=== PATIENT | female | born 1950 | race Caucasian/White ===

== ENCOUNTER 2018-10-28 18:28 | Inpatient (IN) | payer MEDICARE, SELFPAY ==
[2018-10-28 18:32] VITALS: BP 127/68; PULSE 132; RESP 22; TEMP 39.8; O2SAT 91; BMI 51.6
--- NOTE | 2018-10-28 18:47 | DI.RAD.S_ITS ---
PROCEDURE: XR CHEST 1V INDICATIONS: fever, chest pain TECHNIQUE: One view of the chest was acquired. COMPARISON: None. FINDINGS: Surgical changes and devices: None. Lungs and pleura: Air space opacities are present at the left lung base obscuring the left hemidiaphragm. Diffuse interstitial opacities are present throughout the lungs. Mediastinum: Mediastinal contours appear normal. Heart size is normal. Bones and chest wall: No suspicious bony lesions. Overlying soft tissues appear unremarkable. IMPRESSION: 1. Left basilar pulmonary radiopacity suspicious for aspiration/infection. Short interval followup is recommended to ensure resolution of this finding and exclude underlying pulmonary pathology. 2. Diffuse interstitial opacities which may be associated with fluid overload. Dictated by: Ness Lo M.D. on 10/28/2018 at 19:43 Approved by: Ness Lo M.D. on 10/28/2018 at 19:44
[2018-10-28 18:51] VITALS: BP 131/81; PULSE 124; RESP 22; O2SAT 92
[2018-10-28 19:18] LABS: Add Manual Diff / Slide Review NO; Basophils Absolute Auto 100 /uL (0-100); Basophils Percent Auto 0.5 % (0-2); Eosinophils Absolute Auto 400 /uL (0-450); Eosinophils Percent Auto 2.1 % (2-4); Hematocrit 40.9 % (36-46); Hemoglobin 13.6 g/dL (12.0-16.0); Lymphocytes Absolute Auto 200 /uL (1100-4500); Lymphocytes Percent Auto 1.2 % (25-40); Mean Corpuscular HGB Conc 33.2 % (30-36); Mean Corpuscular Hemoglobin 29.4 PG (26-34); Mean Corpuscular Volume 88.8 fL (80-100); Monocytes Absolute Auto 800 /uL (0-900); Monocytes Percent Auto 3.7 % (3-14); Neutrophils Absolute Auto 19100 /uL (1500-7000); Neutrophils Percent Auto 92.5 % (50-75); Platelet Count 257 X10^3/uL (150-400); Red Blood Cell Count 4.61 X10^6/uL (4.0-5.2); Red Cell Distribution Width 14.6 % (11.6-14.8); White Blood Cell Count 20.7 X10^3/uL (4.5-11.0)
[2018-10-28] MEDS: SODIUM CHLORIDE 0.9% 3,538.02 ML 1179.34 ML IV (19:26)
[2018-10-28] MEDS: CEFTRIAXONE 1 GM/50 ML FROZ.PIGGY IV (19:27)
[2018-10-28 19:31] LABS: Alanine Aminotransferase 23 IU/L (9-52); Albumin 3.9 g/dL (3.5-5.0); Albumin Globulin Ratio 1.3 (1.0-2.8); Alkaline Phosphatase 95 U/L (38-126); Aspartate Aminotransferase 24 IU/L (14-36); BUN Creatinine Ratio 22.5 (6-22); Bilirubin Total 1.3 mg/dL (0.2-1.3); Blood Urea Nitrogen 18 mg/dL (7-17); Calcium 9.8 mg/dL (8.4-10.2); Carbon Dioxide 22 mmol/L (22-32); Chloride 101 mmol/L (98-107); Estimated Glomerular Filt Rate > 60.0 mL/min (>60); Globulin 2.9 g/dL (1.7-4.1); Glucose 161 mg/dL (80-110); HEMOLYSIS < 15 (0-50); Lactate (Lactic Acid) 1.7 mmol/L (0.7-2.1); Potassium 3.6 mmol/L (3.4-5.1); Sodium 134 mmol/L (137-145); Total Protein 6.8 g/dL (6.3-8.2)
[2018-10-28 19:46] VITALS: BP 147/68; PULSE 111; RESP 23; O2SAT 95
--- NOTE | 2018-10-28 19:47 | ED.FEVER ---
HPI - Fever General Chief Complaint: Fever Stated Complaint: FEVER THROWING UP Time Seen by Provider: 10/28/18 18:30 Source: patient and family Mode of arrival: ambulatory Limitations: no limitations History of Present Illness HPI Narrative: 68-year-old female former smoker with history of hypertension presents to the emergency department with her in the chief complaint of day and a half of fever, shaking chills as well as nausea and vomiting. The patient complains that she is fatigued and a bit lightheaded but not particularly dizzy. She has had 3 recent encounters for urinary tract infection the most recent being treated with nitrofurantoin. Her symptoms included dysuria, frequency and cloudy urine. MD complaint: fever and malaise Onset (ago): hour(s) Maximum Temperature: 103 F Temperature Source: oral Context: recent antibiotic use Associated symptoms: chills and myalgias Related Data Home Medications Medication Instructions Recorded Confirmed citalopram 10 mg PO DAILY 09/30/18 10/28/18 lisinopril 10 mg PO BEDTIME 09/30/18 10/28/18 loratadine [Claritin] 10 mg PO BEDTIME PRN 09/30/18 10/28/18 trazodone 100 mg PO BEDTIME 09/30/18 10/28/18 triamterene-hydrochlorothiazid 1 cap PO DAILY 09/30/18 10/28/18 Allergies Allergy/AdvReac Type Severity Reaction Status Date / Time TAPE AdvReac Mild RASH with Uncoded 10/28/18 18:38 prolonged wear Review of Systems Constitutional Reports chills, Reports fever(s), Denies lethargy and Reports weakness Eyes Denies change in vision, Denies eye discharge, Denies irritation and Denies loss of vision ENT Ears, Nose, Mouth, and Throat: Denies change in voice, Denies neck pain and Denies sore throat Cardiovascular Denies chest pain, Denies irregular heart rhythm, Denies lightheadedness, Denies palpitations, Denies dyspnea, Denies dyspnea on exertion and Denies orthopnea Respiratory Reports cough, Denies dyspnea, Denies dyspnea on exertion and Denies wheezing Gastrointestinal Gastrointestinal: Denies abdominal pain, Denies change in bowel habits, Denies diarrhea, Reports nausea and Reports vomiting Genitourinary Denies hematuria, Denies flank pain, Denies urinary incontinence and Denies urinary urgency Musculoskeletal Reports muscle cramps and Denies neck pain Integumentary/Breasts Denies pruritus, Denies erythema, Denies rash and Denies wounds Neurologic Denies confusion, Denies loss of vision and Reports weakness Psychiatric Denies anxiety, Denies confusion, Denies depression, Denies homicidal ideation and Denies suicidal ideation Endocrine Denies palpitations Hematologic/Lymphatic Denies easy bruising Allergic/Immunologic Denies wheezing [facility] Medical History Anxiety (Acute) Arthritis (Acute) Edema (Acute) Former smoker (Acute) Gout (Acute) HLD (hyperlipidemia) (Acute) HTN (hypertension) (Acute) Hearing impaired (Acute) Osteoarthritis (Acute) Pre-diabetes (Acute) UTI (urinary tract infection) (Acute ~08/2018) Surgical History History of 2 sections (Acute) History of arthroplasty of left knee (Acute 03/19/14) History of arthroplasty of right knee (Acute 10/23/13) History of colonoscopy (Acute ~10/2014) History of partial hysterectomy (Acute ~1983) Hx of appendectomy (Acute) Hx of tonsillectomy (Acute) Status post bilateral LASIK surgery (Acute) Social History household members: spouse Smoking Status: Former smoker alcohol intake: current Social History household members: spouse Smoking Status: Former smoker alcohol intake: current Exam Narrative Exam Narrative: GENERAL: A 68-year-old female, ill-appearing, moderate distress HEAD: Atraumatic. Normocephalic. No temporal or scalp tenderness. EYES: Pupils equal round and reactive. Extraocular motions intact. No scleral icterus. No injection or drainage. ENT: Nose without bleeding, purulent drainage or septal hematoma. Throat without erythema, tonsillar hypertrophy or exudate. Uvula midline. Airway patent. NECK: Trachea midline. No JVD or lymphadenopathy. Supple, nontender, no meningeal signs. CARDIOVASCULAR: Tachycardic and regular rhythm without murmurs, gallops, or rubs. RESPIRATORY: Clear to auscultation. Breath sounds equal bilaterally. No wheezes, rales, or rhonchi. GASTROINTESTINAL: Abdomen soft, non-tender, nondistended. No hepato-splenomegaly, or palpable masses. No guarding. EXTREMITIES: No clubbing, cyanosis, or edema. No joint tenderness, effusion, or edema noted. BACK: Nontender without deformity or crepitance. No flank tenderness. NEURO: AOx3. SKIN: No rash or erythema. Initial Vital Signs Initial Vital Signs: Vital Signs Temperature 103.6 F H 10/28/18 18:32 Pulse Rate 132 H 10/28/18 18:32 Respiratory Rate 22 10/28/18 18:32 Blood Pressure 127/68 10/28/18 18:32 Pulse Oximetry 91 10/28/18 18:32 Scores qSOFA Altered Mental Status (GCS <15): No Respiratory rate greater than/equal to 22: No Systolic blood pressure less than or equal to 100: No qSOFA Total: 0 0-1 Not High Risk 1-3 High risk Course Orders Ordered: ED Orders 10/28/18 18:47 XR chest 1V Stat 10/28/18 19:00 B Type Natriuretic Peptide Urgent D Dimer Urgent Troponin I Urgent 10/28/18 19:05 Complete Blood Count AUTO DIFF Stat Comprehensive Metabolic Panel Stat Lactate (Lactic Acid) Stat Procalcitonin Stat 10/28/18 19:10 Influenza A and B by PCR Rapid Stat 10/28/18 19:32 Blood Culture Stat 10/28/18 20:40 Urine Microscopic Stat 10/28/18 21:45 Education, smoking cessation ONGOING 10/28/18 22:29 Respiratory Panel (Film Array) Urgent 10/29/18 00:11 Consult to Speech Therapy Evaluate & Treat Acetaminophen (Tylenol) 650 mg PO Q6HR PRN PRN Reason: As Needed for Fever/Mild Pain Last Admin: 10/29/18 00:15 Dose: 650 mg Citalopram Hydrobromide (Celexa) 10 mg PO DAILY [facility] Heparin Sodium (Porcine) (Heparin) 5,000 unit SUBCUT BID [facility] Sodium Chloride (Normal Saline 0.9%) 1,000 mls @ 100 mls/hr IV CONT SRINIVAS Last Admin: 10/28/18 22:50 Dose: 100 mls/hr Ceftriaxone Sodium/Dextrose (Rocephin) 1 gm in 50 mls @ 100 mls/hr IV Q12H [facility] Phenazopyridine HCl (Pyridium) 200 mg PO Q8H [facility] Trazodone HCl (Desyrel) 100 mg PO BEDTIME [facility] Discontinued Medications Sodium Chloride (Normal Saline 0.9%) 3,538.02 mls @ 1,179.34 mls/hr 30 ml/kg infuse over 3 hr (3538.02 ml) IV NOW ONE Stop: 10/28/18 21:49 Last Infusion: 10/28/18 21:50 Dose: 0 mls/hr Admin: 10/28/18 19:26 Dose: 1,179.34 mls/hr Ceftriaxone Sodium/Dextrose (Rocephin) 1 gm in 50 mls @ 100 mls/hr IV NOW ONE Stop: 10/28/18 19:24 Last Infusion: 10/28/18 20:51 Dose: 0 mls/hr Admin: 10/28/18 19:27 Dose: 100 mls/hr Ampicillin Sodium/Sulbactam (Sodium 1.5 gm/ Sodium Chloride) 100 mls @ 100 mls/hr IV Q6H [facility] Vital Signs - 8 hr 10/28/18 18:32 10/28/18 18:51 10/28/18 19:46 Temperature 103.6 F H Pulse Rate 132 H 124 H 111 H Respiratory Rate 22 22 23 Blood Pressure 127/68 Blood Pressure [Left Arm] 131/81 147/68 H Pulse Oximetry 91 92 95 10/28/18 20:50 10/28/18 21:55 10/28/18 23:35 Temperature 101.8 F H 100.8 F H 101.7 F H Pulse Rate 113 H 106 H Respiratory Rate 18 24 Blood Pressure 125/62 126/50 L Blood Pressure [Left Arm] Pulse Oximetry 94 95 MDM - Fever Lab Data Result diagrams: 10/28/18 19:05 10/28/18 19:05 Lab Results 10/28/18 10/28/18 10/28/18 Range/Units 19:00 19:00 19:00 WBC (4.5-11.0) X10^3/uL RBC (4.0-5.2) X10^6/uL Hgb (12.0-16.0) g/dL Hct (36-46) % MCV (80-100) fL MCH (26-34) PG MCHC (30-36) % RDW (11.6-14.8) % Plt Count (150-400) X10^3/uL Neut % (Auto) (50-75) % Lymph % (Auto) (25-40) % [place] % (Auto) (3-14) % Eos % (Auto) (2-4) % Baso % (Auto) (0-2) % Neut # (Auto) (1933-2647) /uL Lymph # (Auto) (2439-1996) /uL [place] # (Auto) (0-900) /uL Eos # (Auto) (0-450) /uL Baso # (Auto) (0-100) /uL D-Dimer 599 H (<230) ng/mL Sodium (137-145) mmol/L Potassium (3.4-5.1) mmol/L Chloride (98-107) mmol/L Carbon Dioxide (22-32) mmol/L BUN (7-17) mg/dL Creatinine (0.52-1.04) mg/dL Estimated GFR (>60) mL/min BUN/Creatinine Ratio (6-22) Glucose (80-110) mg/dL Lactate (0.7-2.1) mmol/L Calcium (8.4-10.2) mg/dL Total Bilirubin (0.2-1.3) mg/dL AST (14-36) IU/L ALT (9-52) IU/L Alkaline Phosphatase (38-126) U/L Troponin I < 0.012 (0.01-0.034) ng/mL B-Natriuretic Peptide < 100 (<100) Total Protein (6.3-8.2) g/dL Albumin (3.5-5.0) g/dL Globulin (1.7-4.1) g/dL Albumin/Globulin Ratio (1.0-2.8) Procalcitonin (<0.5) ng/mL Urine RBC (0-5/HPF) Urine WBC (0-5/HPF) Ur Squamous Epith Cells (0-5/HPF) Amorphous Sediment Urine Bacteria (None) Granular Casts (None) Urine Mucus (Negative) Ur Culture Indicated? Influenza A & B (PCR) (Negative) 10/28/18 10/28/18 10/28/18 Range/Units 19:05 19:05 19:05 WBC 20.7 H (4.5-11.0) X10^3/uL RBC 4.61 (4.0-5.2) X10^6/uL Hgb 13.6 (12.0-16.0) g/dL Hct 40.9 (36-46) % MCV 88.8 (80-100) fL MCH 29.4 (26-34) PG MCHC 33.2 (30-36) % RDW 14.6 (11.6-14.8) % Plt Count 257 (150-400) X10^3/uL Neut % (Auto) 92.5 H (50-75) % Lymph % (Auto) 1.2 L (25-40) % [place] % (Auto) 3.7 (3-14) % Eos % (Auto) 2.1 (2-4) % Baso % (Auto) 0.5 (0-2) % Neut # (Auto) 95202 H (7796-5032) /uL Lymph # (Auto) 200 L (7002-1620) /uL [place] # (Auto) 800 (0-900) /uL Eos # (Auto) 400 (0-450) /uL Baso # (Auto) 100 (0-100) /uL D-Dimer (<230) ng/mL Sodium 134 L (137-145) mmol/L Potassium 3.6 (3.4-5.1) mmol/L Chloride 101 (98-107) mmol/L Carbon Dioxide 22 (22-32) mmol/L BUN 18 H (7-17) mg/dL Creatinine 0.80 (0.52-1.04) mg/dL Estimated GFR > 60.0 (>60) mL/min BUN/Creatinine Ratio 22.5 H (6-22) Glucose 161 H (80-110) mg/dL Lactate (0.7-2.1) mmol/L Calcium 9.8 (8.4-10.2) mg/dL Total Bilirubin 1.3 (0.2-1.3) mg/dL AST 24 (14-36) IU/L ALT 23 (9-52) IU/L Alkaline Phosphatase 95 (38-126) U/L Troponin I (0.01-0.034) ng/mL B-Natriuretic Peptide (<100) Total Protein 6.8 (6.3-8.2) g/dL Albumin 3.9 (3.5-5.0) g/dL Globulin 2.9 (1.7-4.1) g/dL Albumin/Globulin Ratio 1.3 (1.0-2.8) Procalcitonin 0.96 H (<0.5) ng/mL Urine RBC (0-5/HPF) Urine WBC (0-5/HPF) Ur Squamous Epith Cells (0-5/HPF) Amorphous Sediment Urine Bacteria (None) Granular Casts (None) Urine Mucus (Negative) Ur Culture Indicated? Influenza A & B (PCR) (Negative) 10/28/18 10/28/18 10/28/18 Range/Units 19:05 19:10 20:40 WBC (4.5-11.0) X10^3/uL RBC (4.0-5.2) X10^6/uL Hgb (12.0-16.0) g/dL Hct (36-46) % MCV (80-100) fL MCH (26-34) PG MCHC (30-36) % RDW (11.6-14.8) % Plt Count (150-400) X10^3/uL Neut % (Auto) (50-75) % Lymph % (Auto) (25-40) % [place] % (Auto) (3-14) % Eos % (Auto) (2-4) % Baso % (Auto) (0-2) % Neut # (Auto) (1428-8462) /uL Lymph # (Auto) (5378-5341) /uL [place] # (Auto) (0-900) /uL Eos # (Auto) (0-450) /uL Baso # (Auto) (0-100) /uL D-Dimer (<230) ng/mL Sodium (137-145) mmol/L Potassium (3.4-5.1) mmol/L Chloride (98-107) mmol/L Carbon Dioxide (22-32) mmol/L BUN (7-17) mg/dL Creatinine (0.52-1.04) mg/dL Estimated GFR (>60) mL/min BUN/Creatinine Ratio (6-22) Glucose (80-110) mg/dL Lactate 1.7 (0.7-2.1) mmol/L Calcium (8.4-10.2) mg/dL Total Bilirubin (0.2-1.3) mg/dL AST (14-36) IU/L ALT (9-52) IU/L Alkaline Phosphatase (38-126) U/L Troponin I (0.01-0.034) ng/mL B-Natriuretic Peptide (<100) Total Protein (6.3-8.2) g/dL Albumin (3.5-5.0) g/dL Globulin (1.7-4.1) g/dL Albumin/Globulin Ratio (1.0-2.8) Procalcitonin (<0.5) ng/mL Urine RBC None seen (0-5/HPF) Urine WBC 1-5/hpf (0-5/HPF) Ur Squamous Epith Cells 10-30 /hpf H (0-5/HPF) Amorphous Sediment 1+ Urine Bacteria Few (2-10) H (None) Granular Casts 0-1/lpf (None) Urine Mucus 1+ H (Negative) Ur Culture Indicated? Cult not indicated Influenza A & B (PCR) Negative (Negative) Urine Dip Bedside Urine Glucose Negative Bedside Urine Bilirubin - Negative Bedside Urine Ketone +/- 5 Urine Specific [place] 1.020 Bedside Urine Occult Blood - Negative Bedside Urine pH 5.5 Bedside Urine Protein +/- 15 Bedside Urine Urobilinogen +/- 1mg Bedside Urine Nitrite - Negative Bedside Urine Leukocytes - Negative Esterase Discharge Plan Departure Patient Disposition: Admitted As Inpatient Clinical Impression: Sepsis, Pneumonia, Acute UTI Discharge Date/Time: 10/28/18 21:40 Interventions: ED Discharge Assessment Last Done: 10/28/18 21:40 Admit Date/Time: 10/28/18 21:06 Admit Provider: David Buckley
--- NOTE | 2018-10-28 19:50 | ED_ITS ---
HPI - Fever General Chief Complaint: Fever Stated Complaint: FEVER THROWING UP Time Seen by Provider: 10/28/18 18:30 Source: patient and family Mode of arrival: ambulatory Limitations: no limitations History of Present Illness HPI Narrative: 68-year-old female former smoker with history of hypertension presents to the emergency department with her in the chief complaint of day and a half of fever, shaking chills as well as nausea and vomiting. The patient complains that she is fatigued and a bit lightheaded but not particularly dizzy. She has had 3 recent encounters for urinary tract infection the most recent being treated with nitrofurantoin. Her symptoms included dysuria, frequency and cloudy urine. MD complaint: fever and malaise Onset (ago): hour(s) Maximum Temperature: 103 F Temperature Source: oral Context: recent antibiotic use Associated symptoms: chills and myalgias Related Data Home Medications Medication Instructions Recorded Confirmed citalopram 10 mg PO DAILY 09/30/18 10/28/18 lisinopril 10 mg PO BEDTIME 09/30/18 10/28/18 loratadine [Claritin] 10 mg PO BEDTIME PRN 09/30/18 10/28/18 trazodone 100 mg PO BEDTIME 09/30/18 10/28/18 triamterene-hydrochlorothiazid 1 cap PO DAILY 09/30/18 10/28/18 Allergies Allergy/AdvReac Type Severity Reaction Status Date / Time TAPE AdvReac Mild RASH with Uncoded 10/28/18 18:38 prolonged wear Review of Systems Constitutional Reports chills, Reports fever(s), Denies lethargy and Reports weakness Eyes Denies change in vision, Denies eye discharge, Denies irritation and Denies loss of vision ENT Ears, Nose, Mouth, and Throat: Denies change in voice, Denies neck pain and Denies sore throat Cardiovascular Denies chest pain, Denies irregular heart rhythm, Denies lightheadedness, Denies palpitations, Denies dyspnea, Denies dyspnea on exertion and Denies orthopnea Respiratory Reports cough, Denies dyspnea, Denies dyspnea on exertion and Denies wheezing Gastrointestinal Gastrointestinal: Denies abdominal pain, Denies change in bowel habits, Denies diarrhea, Reports nausea and Reports vomiting Genitourinary Denies hematuria, Denies flank pain, Denies urinary incontinence and Denies urinary urgency Musculoskeletal Reports muscle cramps and Denies neck pain Integumentary/Breasts Denies pruritus, Denies erythema, Denies rash and Denies wounds Neurologic Denies confusion, Denies loss of vision and Reports weakness Psychiatric Denies anxiety, Denies confusion, Denies depression, Denies homicidal ideation and Denies suicidal ideation Endocrine Denies palpitations Hematologic/Lymphatic Denies easy bruising Allergic/Immunologic Denies wheezing [facility] Medical History Anxiety (Acute) Arthritis (Acute) Edema (Acute) Former smoker (Acute) Gout (Acute) HLD (hyperlipidemia) (Acute) HTN (hypertension) (Acute) Hearing impaired (Acute) Osteoarthritis (Acute) Pre-diabetes (Acute) UTI (urinary tract infection) (Acute ~08/2018) Surgical History History of 2 sections (Acute) History of arthroplasty of left knee (Acute 03/19/14) History of arthroplasty of right knee (Acute 10/23/13) History of colonoscopy (Acute ~10/2014) History of partial hysterectomy (Acute ~1983) Hx of appendectomy (Acute) Hx of tonsillectomy (Acute) Status post bilateral LASIK surgery (Acute) Social History household members: spouse Smoking Status: Former smoker alcohol intake: current Social History household members: spouse Smoking Status: Former smoker alcohol intake: current Exam Narrative Exam Narrative: GENERAL: A 68-year-old female, ill-appearing, moderate distress HEAD: Atraumatic. Normocephalic. No temporal or scalp tenderness. EYES: Pupils equal round and reactive. Extraocular motions intact. No scleral icterus. No injection or drainage. ENT: Nose without bleeding, purulent drainage or septal hematoma. Throat without erythema, tonsillar hypertrophy or exudate. Uvula midline. Airway patent. NECK: Trachea midline. No JVD or lymphadenopathy. Supple, nontender, no meningeal signs. CARDIOVASCULAR: Tachycardic and regular rhythm without murmurs, gallops, or rubs. RESPIRATORY: Clear to auscultation. Breath sounds equal bilaterally. No wheezes, rales, or rhonchi. GASTROINTESTINAL: Abdomen soft, non-tender, nondistended. No hepato- splenomegaly, or palpable masses. No guarding. EXTREMITIES: No clubbing, cyanosis, or edema. No joint tenderness, effusion, or edema noted. BACK: Nontender without deformity or crepitance. No flank tenderness. NEURO: AOx3. SKIN: No rash or erythema. Initial Vital Signs Initial Vital Signs: Vital Signs Temperature 103.6 F H 10/28/18 18:32 Pulse Rate 132 H 10/28/18 18:32 Respiratory Rate 22 10/28/18 18:32 Blood Pressure 127/68 10/28/18 18:32 Pulse Oximetry 91 10/28/18 18:32 Scores qSOFA Altered Mental Status (GCS <15): No Respiratory rate greater than/equal to 22: No Systolic blood pressure less than or equal to 100: No qSOFA Total: 0 0-1 Not High Risk 1-3 High risk Course Orders Ordered: ED Orders 10/28/18 18:47 XR chest 1V Stat 10/28/18 19:00 B Type Natriuretic Peptide Urgent D Dimer Urgent Troponin I Urgent 10/28/18 19:05 Complete Blood Count AUTO DIFF Stat Comprehensive Metabolic Panel Stat Lactate (Lactic Acid) Stat Procalcitonin Stat 10/28/18 19:10 Influenza A and B by PCR Rapid Stat 10/28/18 19:32 Blood Culture Stat 10/28/18 20:40 Urine Microscopic Stat 10/28/18 21:45 Education, smoking cessation ONGOING 10/28/18 22:29 Respiratory Panel (Film Array) Urgent 10/29/18 00:11 Consult to Speech Therapy Evaluate & Treat Acetaminophen (Tylenol) 650 mg PO Q6HR PRN PRN Reason: As Needed for Fever/Mild Pain Last Admin: 10/29/18 00:15 Dose: 650 mg Citalopram Hydrobromide (Celexa) 10 mg PO DAILY [facility] Heparin Sodium (Porcine) (Heparin) 5,000 unit SUBCUT BID [facility] Sodium Chloride (Normal Saline 0.9%) 1,000 mls @ 100 mls/hr IV CONT SRINIVAS Last Admin: 10/28/18 22:50 Dose: 100 mls/hr Ceftriaxone Sodium/Dextrose (Rocephin) 1 gm in 50 mls @ 100 mls/hr IV Q12H [facility] Phenazopyridine HCl (Pyridium) 200 mg PO Q8H [facility] Trazodone HCl (Desyrel) 100 mg PO BEDTIME [facility] Discontinued Medications Sodium Chloride (Normal Saline 0.9%) 3,538.02 mls @ 1,179.34 mls/hr 30 ml/kg infuse over 3 hr (3538.02 ml) IV NOW ONE Stop: 10/28/18 21:49 Last Infusion: 10/28/18 21:50 Dose: 0 mls/hr Admin: 10/28/18 19:26 Dose: 1,179.34 mls/hr Ceftriaxone Sodium/Dextrose (Rocephin) 1 gm in 50 mls @ 100 mls/hr IV NOW ONE Stop: 10/28/18 19:24 Last Infusion: 10/28/18 20:51 Dose: 0 mls/hr Admin: 10/28/18 19:27 Dose: 100 mls/hr Ampicillin Sodium/Sulbactam (Sodium 1.5 gm/ Sodium Chloride) 100 mls @ 100 mls/hr IV Q6H [facility] Vital Signs - 8 hr 10/28/18 18:32 10/28/18 18:51 10/28/18 19:46 Temperature 103.6 F H Pulse Rate 132 H 124 H 111 H Respiratory Rate 22 22 23 Blood Pressure 127/68 Blood Pressure [Left Arm] 131/81 147/68 H Pulse Oximetry 91 92 95 10/28/18 20:50 10/28/18 21:55 10/28/18 23:35 Temperature 101.8 F H 100.8 F H 101.7 F H Pulse Rate 113 H 106 H Respiratory Rate 18 24 Blood Pressure 125/62 126/50 L Blood Pressure [Left Arm] Pulse Oximetry 94 95 MDM - Fever Lab Data Result diagrams: 10/28/18 19:05 10/28/18 19:05 Lab Results 10/28/18 10/28/18 10/28/18 Range/Units 19:00 19:00 19:00 WBC (4.5-11.0) X10^3/uL RBC (4.0-5.2) X10^6/uL Hgb (12.0-16.0) g/dL Hct (36-46) % MCV (80-100) fL MCH (26-34) PG MCHC (30-36) % RDW (11.6-14.8) % Plt Count (150-400) X10^3/uL Neut % (Auto) (50-75) % Lymph % (Auto) (25-40) % [place] % (Auto) (3-14) % Eos % (Auto) (2-4) % Baso % (Auto) (0-2) % Neut # (Auto) (1431-8161) /uL Lymph # (Auto) (1382-5076) /uL [place] # (Auto) (0-900) /uL Eos # (Auto) (0-450) /uL Baso # (Auto) (0-100) /uL D-Dimer 599 H (<230) ng/mL Sodium (137-145) mmol/L Potassium (3.4-5.1) mmol/L Chloride (98-107) mmol/L Carbon Dioxide (22-32) mmol/L BUN (7-17) mg/dL Creatinine (0.52-1.04) mg/dL Estimated GFR (>60) mL/min BUN/Creatinine Ratio (6-22) Glucose (80-110) mg/dL Lactate (0.7-2.1) mmol/L Calcium (8.4-10.2) mg/dL Total Bilirubin (0.2-1.3) mg/dL AST (14-36) IU/L ALT (9-52) IU/L Alkaline Phosphatase (38-126) U/L Troponin I < 0.012 (0.01-0.034) ng/mL B-Natriuretic Peptide < 100 (<100) Total Protein (6.3-8.2) g/dL Albumin (3.5-5.0) g/dL Globulin (1.7-4.1) g/dL Albumin/Globulin Ratio (1.0-2.8) Procalcitonin (<0.5) ng/mL Urine RBC (0-5/HPF) Urine WBC (0-5/HPF) Ur Squamous Epith Cells (0-5/HPF) Amorphous Sediment Urine Bacteria (None) Granular Casts (None) Urine Mucus (Negative) Ur Culture Indicated? Influenza A & B (PCR) (Negative) 10/28/18 10/28/18 10/28/18 Range/Units 19:05 19:05 19:05 WBC 20.7 H (4.5-11.0) X10^3/uL RBC 4.61 (4.0-5.2) X10^6/uL Hgb 13.6 (12.0-16.0) g/dL Hct 40.9 (36-46) % MCV 88.8 (80-100) fL MCH 29.4 (26-34) PG MCHC 33.2 (30-36) % RDW 14.6 (11.6-14.8) % Plt Count 257 (150-400) X10^3/uL Neut % (Auto) 92.5 H (50-75) % Lymph % (Auto) 1.2 L (25-40) % [place] % (Auto) 3.7 (3-14) % Eos % (Auto) 2.1 (2-4) % Baso % (Auto) 0.5 (0-2) % Neut # (Auto) 42738 H (6915-3557) /uL Lymph # (Auto) 200 L (8532-5204) /uL [place] # (Auto) 800 (0-900) /uL Eos # (Auto) 400 (0-450) /uL Baso # (Auto) 100 (0-100) /uL D-Dimer (<230) ng/mL Sodium 134 L (137-145) mmol/L Potassium 3.6 (3.4-5.1) mmol/L Chloride 101 (98-107) mmol/L Carbon Dioxide 22 (22-32) mmol/L BUN 18 H (7-17) mg/dL Creatinine 0.80 (0.52-1.04) mg/dL Estimated GFR > 60.0 (>60) mL/min BUN/Creatinine Ratio 22.5 H (6-22) Glucose 161 H (80-110) mg/dL Lactate (0.7-2.1) mmol/L Calcium 9.8 (8.4-10.2) mg/dL Total Bilirubin 1.3 (0.2-1.3) mg/dL AST 24 (14-36) IU/L ALT 23 (9-52) IU/L Alkaline Phosphatase 95 (38-126) U/L Troponin I (0.01-0.034) ng/mL B-Natriuretic Peptide (<100) Total Protein 6.8 (6.3-8.2) g/dL Albumin 3.9 (3.5-5.0) g/dL Globulin 2.9 (1.7-4.1) g/dL Albumin/Globulin Ratio 1.3 (1.0-2.8) Procalcitonin 0.96 H (<0.5) ng/mL Urine RBC (0-5/HPF) Urine WBC (0-5/HPF) Ur Squamous Epith Cells (0-5/HPF) Amorphous Sediment Urine Bacteria (None) Granular Casts (None) Urine Mucus (Negative) Ur Culture Indicated? Influenza A & B (PCR) (Negative) 10/28/18 10/28/18 10/28/18 Range/Units 19:05 19:10 20:40 WBC (4.5-11.0) X10^3/uL RBC (4.0-5.2) X10^6/uL Hgb (12.0-16.0) g/dL Hct (36-46) % MCV (80-100) fL MCH (26-34) PG MCHC (30-36) % RDW (11.6-14.8) % Plt Count (150-400) X10^3/uL Neut % (Auto) (50-75) % Lymph % (Auto) (25-40) % [place] % (Auto) (3-14) % Eos % (Auto) (2-4) % Baso % (Auto) (0-2) % Neut # (Auto) (9295-9121) /uL Lymph # (Auto) (6175-2145) /uL [place] # (Auto) (0-900) /uL Eos # (Auto) (0-450) /uL Baso # (Auto) (0-100) /uL D-Dimer (<230) ng/mL Sodium (137-145) mmol/L Potassium (3.4-5.1) mmol/L Chloride (98-107) mmol/L Carbon Dioxide (22-32) mmol/L BUN (7-17) mg/dL Creatinine (0.52-1.04) mg/dL Estimated GFR (>60) mL/min BUN/Creatinine Ratio (6-22) Glucose (80-110) mg/dL Lactate 1.7 (0.7-2.1) mmol/L Calcium (8.4-10.2) mg/dL Total Bilirubin (0.2-1.3) mg/dL AST (14-36) IU/L ALT (9-52) IU/L Alkaline Phosphatase (38-126) U/L Troponin I (0.01-0.034) ng/mL B-Natriuretic Peptide (<100) Total Protein (6.3-8.2) g/dL Albumin (3.5-5.0) g/dL Globulin (1.7-4.1) g/dL Albumin/Globulin Ratio (1.0-2.8) Procalcitonin (<0.5) ng/mL Urine RBC None seen (0-5/HPF) Urine WBC 1-5/hpf (0-5/HPF) Ur Squamous Epith Cells 10-30 /hpf H (0-5/HPF) Amorphous Sediment 1+ Urine Bacteria Few (2-10) H (None) Granular Casts 0-1/lpf (None) Urine Mucus 1+ H (Negative) Ur Culture Indicated? Cult not indicated Influenza A & B (PCR) Negative (Negative) Urine Dip Bedside Urine Glucose Negative Bedside Urine Bilirubin - Negative Bedside Urine Ketone +/- 5 Urine Specific [place] 1.020 Bedside Urine Occult Blood - Negative Bedside Urine pH 5.5 Bedside Urine Protein +/- 15 Bedside Urine Urobilinogen +/- 1mg Bedside Urine Nitrite - Negative Bedside Urine Leukocytes - Negative Esterase Discharge Plan Departure Patient Disposition: Admitted As Inpatient Clinical Impression: Sepsis, Pneumonia, Acute UTI Discharge Date/Time: 10/28/18 21:40 Interventions: ED Discharge Assessment Last Done: 10/28/18 21:40 Admit Date/Time: 10/28/18 21:06 Admit Provider: David Buckley
[2018-10-28 19:51] LABS: Procalcitonin 0.96 ng/mL (<0.5)
[2018-10-28 20:50] VITALS: TEMP 38.8
[2018-10-28 21:08] LABS: RBC Urine None Seen (0-5/HPF)
[2018-10-28 21:20] LABS: Amorphous Sediment Urine 1+; Bacteria Urine Few (2-10); Culture Indicated Urine Cult Not Indicated; Granular Casts Urine 0-1/LPF; Mucus Urine 1+ (Negative); Squamous Epithelial Cell Urine 10-30 /HPF (0-5/HPF); WBC Urine 1-5/HPF (0-5/HPF)
[2018-10-28 21:44] LABS: Influenza A and B by PCR Rapid Negative (Negative)
[2018-10-28 21:55] VITALS: BP 125/62; PULSE 113; RESP 18; TEMP 38.2; O2SAT 94
[2018-10-28 21:58] VITALS: BMI 51.6
--- NOTE | 2018-10-28 22:01 | PM.HP.1 ---
History of Present Illness Date Patient Seen: 10/28/18 Time Patient Seen: 22:01 Chief complaint: FEVER THROWING UP Narrative: The patient is a 68-year-old female who presented to the ED on 10/28/2018 out of concern for persistent fever and rigors. Symptoms started early in the morning on day of ED presentation. A day prior, patient was experiencing dysuria and foul-smelling urine, consequently she was started on her 3rd oral antibiotic course. Associated symptoms include headache, malaise, non-productive cough, wheezing, exertional dyspnea (recent), chest discomfort (recent), dizziness (w/ position change), nausea and vomiting (x4 episodes). Denies suprapubic tenderness, diarrhea, pleurisy, and syncopal events. Reports new onset of mid-sternal chest discomfort without radiation to the extremities, neck or jaw. She has baseline paresthesia of BUE. Reports an episode of self resolved viral illness one month ago. Episode was characterized by generalized weakness, generalized body rash, and temperature of 103? point. Denies sx of overt rhinitis or sinusitis. She is not O2 dependent at baseline. No prior h/o of PE or DVT. Denies unilateral edema and LE pain at rest or with ambulation. Patient has a pending C3-T1 anterior cervical diskectomy and fusion scheduled for 11/08/2018. PMH: HTN, HLD, impaired fasting glucose, obesity, chronic neck and left shoulder pain, osteoarthritis, PUD, anxiety, former smoker (30 PYH, quit 1998), chronic NSAID use, allergic rhinitis, cervical stenosis of spine, cervical cord compression with myelopathy, and morbid obesity (BMI 51.6). PSH: Knee replacement surgery (2013), NM stress test (07/2018), left TKA (03/19/2014), colonoscopy (negative, 10/2018), and hysterectomy (ovaries present, 1984) ED presentation, work-up VS: T 103.6 BP 127/68 mmHg HR 132 RR 22 SpO2 91% on room air. GCS 15 WBC 20.7 HGB 13.6 HCT 40.9 PLT 257 Lactate 1.7 PCT 0.96 NA 134 K 3.6 CL 101 CA 9.8 ALB 3.9 GLU 161 CO2 22 BUN 18 CR 0.8 BUN:CR 22.5 T.BILI 1.3 AST 24 ALT 23 ALK PHOS 95 Influenza, negative. UA revealed WBC 1-5 HPF, squamous epithelial cells 10-30 HPF, amorphous sediment 1+, bacteria 2-10 HPF, mucus 1+ CXR revealed a left basilar pulmonary radiopacities suspicious for aspiration / infection; heart size is normal; mediastinal contours appear normal. In the ED received a total of 2 L of NS for fluid resuscitation. Tylenol 650 mg x1 for headache. Blood cultures x2 collected, pending. Patient History Medical History Anxiety (Acute) Arthritis (Acute) Edema (Acute) Former smoker (Acute) Gout (Acute) HLD (hyperlipidemia) (Acute) HTN (hypertension) (Acute) Hearing impaired (Acute) Osteoarthritis (Acute) Pre-diabetes (Acute) UTI (urinary tract infection) (Acute ~08/2018) Surgical History History of 2 sections (Acute) History of arthroplasty of left knee (Acute 03/19/14) History of arthroplasty of right knee (Acute 10/23/13) History of colonoscopy (Acute ~10/2014) History of partial hysterectomy (Acute ~1983) Hx of appendectomy (Acute) Hx of tonsillectomy (Acute) Status post bilateral LASIK surgery (Acute) Social History household members: spouse Smoking Status: Former smoker alcohol intake: current Family & Social History Social History: household members spouse Safety & Behavioral: Feels Safe in Current Yes Environment Been Physically Hurt or No Threatened By a Person Tobacco & Substance use: Tobacco type cigarettes Smoking Status Former smoker alcohol intake current alcohol intake frequency holiday/special occasion Substance Use Type does not use Meds Home Medications Medication Instructions Recorded Confirmed Type citalopram 10 mg PO DAILY 09/30/18 10/28/18 History lisinopril 10 mg PO BEDTIME 09/30/18 10/28/18 History loratadine [Claritin] 10 mg PO BEDTIME PRN 09/30/18 10/28/18 History trazodone 100 mg PO BEDTIME 09/30/18 10/28/18 History triamterene-hydrochlorothiazid 1 cap PO DAILY 04/05/19 05/03/19 History Allergies Allergy/AdvReac Type Severity Reaction Status Date / Time TAPE AdvReac Mild RASH with Uncoded 10/28/18 18:38 prolonged wear Review of Systems Review of Systems All systems reviewed & are unremarkable except as noted in HPI and below Exam Vital Signs (past 8 hours): - 10/28/18 18:32 10/28/18 18:51 10/28/18 19:46 Temperature 103.6 F H Pulse Rate 132 H 124 H 111 H Respiratory Rate 22 22 23 Blood Pressure 127/68 Blood Pressure [Left Arm] 131/81 147/68 H Pulse Oximetry 91 92 95 10/28/18 20:50 Temperature 101.8 F H Pulse Rate Respiratory Rate Blood Pressure Blood Pressure [Left Arm] Pulse Oximetry Oxygen Delivery Method Room Air Oxygen Flow Rate 2 Narrative Exam Narrative: Constitutional: NAD at rest, corpulent body habitus with BMI of 51.6 Neurologic: AOx3, no focal neurological deficits Head: NC, AT Eyes: PERRL, EOMI, Ears: external ears normal, no otorrhea, very hard of hearing Nose: external nose normal, no rhinorrhea or epistaxis Throat: Dry mucous membranes, oropharynx w/o exudate Neck: no masses, lymphadenopathy, or JVD Chest / Respiratory: equal chest rise, unlabored respiratory effort, mild tachypnea at rest 22-24 breaths Left lower lobe crackles. Patient significantly short of breath sitting up. On supplemental oxygen. Heart / CV: S1S2, no murmur Abdomen / GI: round, NT, ND, + BS, no organomegaly : no suprapubic tenderness, no CVA Peripheral / Vascular: warm to touch, DP and PT pulses palpable, no edema Musc: full ROM of upper and lower extremities, adequate muscle tone and bulk Skin: no eccymosis or suspicious lesions / ulcers Objective Labs Result Diagrams: 10/28/18 19:05 10/28/18 19:05 Labs: Laboratory Results - last 24 hr 10/28/18 10/28/18 10/28/18 19:05 19:05 19:05 WBC 20.7 H RBC 4.61 Hgb 13.6 Hct 40.9 MCV 88.8 MCH 29.4 MCHC 33.2 RDW 14.6 Plt Count 257 Neut % (Auto) 92.5 H Lymph % (Auto) 1.2 L [place] % (Auto) 3.7 Eos % (Auto) 2.1 Baso % (Auto) 0.5 Neut # (Auto) 06359 H Lymph # (Auto) 200 L [place] # (Auto) 800 Eos # (Auto) 400 Baso # (Auto) 100 Sodium 134 L Potassium 3.6 Chloride 101 Carbon Dioxide 22 BUN 18 H Creatinine 0.80 Estimated GFR > 60.0 BUN/Creatinine Ratio 22.5 H Glucose 161 H Lactate Calcium 9.8 Total Bilirubin 1.3 AST 24 ALT 23 Alkaline Phosphatase 95 Total Protein 6.8 Albumin 3.9 Globulin 2.9 Albumin/Globulin Ratio 1.3 Procalcitonin 0.96 H Urine RBC Urine WBC Ur Squamous Epith Cells Amorphous Sediment Urine Bacteria Granular Casts Urine Mucus Ur Culture Indicated? Influenza A & B (PCR) 10/28/18 10/28/18 10/28/18 19:05 19:10 20:40 WBC RBC Hgb Hct MCV MCH MCHC RDW Plt Count Neut % (Auto) Lymph % (Auto) [place] % (Auto) Eos % (Auto) Baso % (Auto) Neut # (Auto) Lymph # (Auto) [place] # (Auto) Eos # (Auto) Baso # (Auto) Sodium Potassium Chloride Carbon Dioxide BUN Creatinine Estimated GFR BUN/Creatinine Ratio Glucose Lactate 1.7 Calcium Total Bilirubin AST ALT Alkaline Phosphatase Total Protein Albumin Globulin Albumin/Globulin Ratio Procalcitonin Urine RBC None seen Urine WBC 1-5/hpf Ur Squamous Epith Cells 10-30 /hpf H Amorphous Sediment 1+ Urine Bacteria Few (2-10) H Granular Casts 0-1/lpf Urine Mucus 1+ H Ur Culture Indicated? Cult not indicated Influenza A & B (PCR) Negative Assessment & Plan Assessment & Plan narrative: Patient is being admitted for sepsis. Sepsis, acute, present on admission, active Temp 103.6F HR 132 RR 22, leukocytosis (WBC 20.7) Lactate WNL PCT 0.96, CXR suggestive of aspiration pneumonia. Acute respiratory failure w/ hypoxia requiring O2 (acute organ involvement) BP at baseline, w/o hemodynamic decompensation Source of sepsis is not entirely clear possibly d/t recurrent UTIs or aspiration PNA, viral pathology has also not been ruled out - Blood Cx x2 collected in ED, results pending - UA is not indicative of underlying infectious process - IV fluid resuscitation at 30 ml/kg, completed initial bolus in ED, transition to maintenance therapy at 100 mL - viral respiratory panel results reviewed: negative Aspiration pneumonia, acute, present on admission, active - continue Rocephin 1 mg every 12 hours - swallow eval in am, patient herself does not complain of dysphagia - Empiric therapy w/ ceftriaxone 1 g q.12 hours - Repeat PCT and CXR on 10/30/18 Acute respiratory failure with hypoxia and O2 dependence, acute, present on admission, - influenza negative, will add viral respiratory panel - check Trop, D-dimer, and BNP Results reviewed troponin and BNP WNL. D-Dimer 599 ng/mL - elevated, will get a CTA chest to r/o PE - consult respiratory care to provide supplemental oxygen, DuoNeb treatments, and supportive pulmonary care History of recurrent UTIs, subacute, present on admission Recently treated with 2 full courses of oral antibiotic therapy. One of the medications was nitrofurantoin. Patient had symptoms of dysuria and cloudy/concentrated urine, consequently she was placed on another course of oral antibiotics. UA completed in the ED does not support findings of active UTI or pyelonephritis. No prior known multi-drug resistance. [facility] been [facility]. Hypovolemia, acute, present on admission, active Suspected to be in the setting of acute illness and hypermetabolic state - Received 30 ml/kg IVF resuscitation in the ED, now transitioned to oral therapy - Correct underlying pathology - BMP in AM Non AG - 11 mEq/L acidosis, acute, present on admission, active / monitor Essential hypertension, chronic condition, present on admission, active PT regimen consists of lisinopril 10 mg q.h.s. and triamterene-HCTZ - BP within normal limits. Continue trending - Hold [employer] anti-hypertensives in the setting of sepsis and risk for hemodynamic decompensation, re-evaluate in the morning Depression, chronic condition, stable, active - resume [employer] trazodone and citalopram Code status discussed with patient. Wishes to be DNR. She has a formal health directive. is the designated shuttle truck driver. Home medications reviewed and reconciled accordingly VT prophylaxis with SCDs and SQ Heparin.
--- NOTE | 2018-10-28 22:32 | PC.ADMIT ---
[address] Admission Note: The patient,Luanne Carrasco,68 y/o, was given written information regarding hospital policies, unit procedures and contact persons. Patient's smoking status: Former smoker. Vital Signs - 8 hr 10/28/18 18:32 10/28/18 18:51 10/28/18 19:46 Temperature 103.6 F H Pulse Rate 132 H 124 H 111 H Respiratory Rate 22 22 23 Blood Pressure 127/68 Blood Pressure [Left Arm] 131/81 147/68 H Pulse Oximetry 91 92 95 10/28/18 20:50 10/28/18 21:55 Temperature 101.8 F H 100.8 F H Pulse Rate 113 H Respiratory Rate 18 Blood Pressure 125/62 Blood Pressure [Left Arm] Pulse Oximetry 94 Patient up to the floor from ED via stretcher. Pt was able to get off of the stretcher and ambulate to the AC bed. Pt A&O, calm and cooperative.
[2018-10-28 22:42] LABS: D Dimer 599 ng/mL (<230)
[2018-10-28] MEDS: SODIUM CHLORIDE 0.9% 1,000 ML 100 ML IV (22:50)
[2018-10-28 22:56] LABS: Troponin I < 0.012 ng/mL (0.01-0.034)
[2018-10-28 22:58] LABS: B Type Natriuretic Peptide < 100 (<100)
[2018-10-28 23:35] VITALS: BP 126/50; PULSE 106; RESP 24; TEMP 38.7; O2SAT 95
[2018-10-29] VITALS (11 sets, daily range): BP systolic 105–123; BP diastolic 42–78; PULSE 84–97; RESP 18–24; TEMP 36.3–37.4; O2SAT 85–95
--- NOTE | 2018-10-29 | DI.ECHO.S_ITS ---
[facility]---------+ [facility] +---------+ : : [address] : : : [place], [place] : : : : [id number] : : : : Phone: [phone] Echocardiogram Report + + :Name: ADITI GALDAMEZ Study Date: 10/30/2018 Height: 60 in : :[facility] Exam Location: IS Weight: 271 lb : : Gender: Female BSA: 2.1 m2 : :: 1950 Age: 68 yrs BP: 111/53 mmHg: :Reason For Study: IVERSON/ Heart failure : :Ordering Physician: Nancy : :Hospitalist Performed By: Maite Page : :Referring: JED CASTRO : + + Interpretation Summary 1) Upper normal left ventricular size with normal thickness, wall motion, and systolic function (EF 55-60)%. 2) Mildly enlarged right ventricle with normal function. 3) Both atria are moderately dilated. 4) No significant valvular abnormalities. 5) The right ventricular systolic pressure is estimated to be at least 33 mmHg based on an estimated right atrial pressure of 3 mm Hg. 6) No prior echo available for comparison. Procedure: A two-dimensional transthoracic echocardiogram with color flow and Doppler was performed. The study quality was technically difficult. There is no prior echocardiogram noted for this patient. A contrast injection of Definity was performed to improve assessment of LV function. The patient was in normal sinus rhythm during the exam. Left Ventricle: The left ventricle is mildly dilated. Left ventricular wall thickness is normal. The ejection fraction is estimated to be 55-60%. Left ventricular systolic function is normal. There are no focal wall motion abnormalities. Right Ventricle: The right ventricle is mildly dilated. The right ventricular systolic function is normal. Atria: Both atria are moderately dilated. There is no Doppler evidence for an interatrial shunt. Mitral Valve: The mitral valve is normal in structure and function. There is mild mitral annular calcification. There is trace mitral regurgitation. Aortic Valve: The aortic valve is trileaflet. The aortic valve opens well. There is no aortic valve stenosis. No aortic regurgitation is present. Tricuspid Valve: The tricuspid valve is normal in structure and function. There is trace tricuspid regurgitation. The right ventricular systolic pressure is estimated to be at least 33 mmHg based on an estimated right atrial pressure of 3 mm Hg. Pulmonic Valve: The pulmonic valve is not well visualized. There is a trace or physiologic amount of pulmonic regurgitation. Great Vessels: The aortic root is normal size. The ascending aorta is mildly enlarged. The pulmonary artery is not well visualized, but is probably normal size. The IVC is of normal diameter and collapses greater than 50% with a sniff. This suggests a low right atrial pressure of 3 mm Hg. Pericardium/ Pleura There is no pericardial effusion. There is no pleural effusion. MMode/2D Measurements & Calculations LVIDd: 5.3 cm LVOT diam: 1.9 cm LVIDs: 3.1 cm Ao root diam: 3.3 cm FS: 41.5 % asc Aorta Diam: 3.5 cm EPSS: 0.30 cm IVSd: 0.70 cm LVPWd: 0.85 cm LV ashley. diameter/BSA (cm/m^2): 2.5 LV sys. diameter/BSA (cm/m^2): 1.5 LA A2 area: 25.0 cm2 RA long axis: 5.2 cm LA A4 area: 25.7 cm2 RA area: 23.8 cm2 LA length (vol): 6.2 cm RA vol: 93.0 ml LA vol: 88.0 ml RA : 43.8 ml/m2 LA vol index: 41.4 ml/m2 IVC diam: 2.1 cm RVD1 (basal): 4.4 cm TAPSE: 2.0 cm Doppler Measurements & Calculations Ao V2 max: 154.8 cm/sec LVOT Max Bryce: 106.4 cm/sec Ao V2 mean: 110.5 cm/sec LV V1 max P.5 mmHg Ao max P.6 mmHg LV V1 VTI: 23.9 cm Ao mean P.2 mmHg MAIRA(I,D): 2.2 cm2 Ao V2 VTI: 30.6 cm MAIRA(V,D): 1.9 cm2 sev ratio: 0.78 MAIRA indexed to BSA (cm^2/m^2): 1.0 MV E max bryce: 120.6 cm/sec TR max bryce: 272.6 cm/sec MV A max bryce: 84.7 cm/sec TR max P.7 mmHg MV E/A: 1.4 PA V2 max: 93.2 cm/sec Med Peak E' Bryce: 8.9 cm/sec PA V2 mean: 65.1 cm/sec E/E' med: 13.6 PA mean P.9 mmHg Lat Peak E' Bryce: 12.9 cm/sec PA Accel Time: 0.07 sec E/E' lat: 9.3 E/e' average: 11.5 MV dec time: 0.23 sec MV P1/2t: 68.7 msec MV /2t max bryce: 122.0 cm/sec SV(LVOT): 66.4 ml MVA(2t): 3.2 cm2 Reading Physician:03:26 PM
[2018-10-29] MEDS: ACETAMINOPHEN 325 MG TABLET 650 MG PO ×2 (00:15→16:10)
[2018-10-29] MEDS: PHENAZOPYRIDINE 100 MG TABLET 200 MG PO ×3 (01:41→16:10)
[2018-10-29 02:19] LABS: Adenovirus Not Detected (Not Detect); Bordetella pertussis Not Detected (Not Detect); Chlamydophila pneumoniae Not Detected (Not Detect); Coronavirus 229E Not Detected (Not Detect); Coronavirus HKU1 Not Detected (Not Detect); Coronavirus NL 63 Not Detected (Not Detect); Coronavirus OC43 Not Detected (Not Detect); Human Metapneumovirus Not Detected (Not Detect); Human Rhinovirus/Enterovirus Not Detected (Not Detect); Influenza A Not Detected (Not Detect); Influenza B Not Detected (Not Detect); Mycoplasma pneumoniae Not Detected (Not Detect); Parainfluenza Virus 1 Not Detected (Not Detect); Parainfluenza Virus 2 Not Detected (Not Detect); Parainfluenza Virus 3 Not Detected (Not Detect); Parainfluenza Virus 4 Not Detected (Not Detect); Respiratory Syncytial Virus Not Detected (Not Detect)
--- NOTE | 2018-10-29 03:33 | PC.NURSE ---
Addendum entered by Ekaterina Harrison R.N. 10/29/18 07:40: Per provider place pt on NPO with sips of meds, SL IVF, and bladder scan for PVR. Pt aware of NPO status. PO Fluids removed. Day shift RN to SL IVF and perform PVR scan. Addendum entered by Ekaterina Harrison R.N. 10/29/18 05:29: DI ordered by provider. Per provider okay for PAPER HANDLER to trans off unit to DI for CT while on Tele. Pt sat up at bedside. Trial on RA. Sats decreased to 85%. Portable O2 on 2L NC used to trans to DI. Original Note: Assumed care of pt at 2300 on 10/28/18. Pt sleeping during bedside hand-off. Awakens to voice. Denies pain. Febrile, temp reduced with Tylenol administration. Viral swab sent to lab. Pt did not allow deep swab so results may not be accurate, provider aware. IVF infusing to piv, L. AC. Pt states she will call for sba for all oob toileting or mobility needs. Bed mobility independent. Bed alarm on. Call light within reach.
--- NOTE | 2018-10-29 04:14 | DI.CT.S_ITS ---
PROCEDURE: CT ANGIO CHEST PE PROTOCOL INDICATIONS: dyspnea, hypoxia, elevated d-dimer TECHNIQUE: After the administration of intravenous contrast, 2 mm thick sections acquired from the pulmonary apices to the posterior costophrenic angles. 3-dimensional maximum intensity projection (MIP) coronal and sagittal reformats were then acquired through the thorax. For radiation dose reduction, the following was used: automated exposure control, adjustment of mA and/or kV according to patient size. COMPARISON: None. FINDINGS: Image quality: Suboptimal. Pulmonary arteries: The timing of the contrast bolus is suboptimal for opacification of the pulmonary arteries. Only the main and lobar pulmonary arteries are adequately evaluated on this examination. The more distal pulmonary arteries are not adequately seen. No large pulmonary emboli are evident. Lungs and pleura: Prominent bronchial wall thickening is identified diffusely throughout the lungs, which is more prominent within the right lower lobe. Small bilateral effusions and associated areas of posterior pulmonary consolidation are evident. Intralobular septal thickening is identified. Mediastinum: Heart size is normal, without pericardial effusion. No mediastinal or hilar adenopathy. Thoracic aorta is normal in caliber and enhancement. Esophagus is normal in caliber, without hiatal hernia. Bones and chest wall: No suspicious bony lesions. Ribs and thoracic spine appear intact throughout. Thyroid gland contains an enlarged left thyroid nodule that measures at least 3.5 cm in diameter and exerts mass effect on the adjacent trachea with rightward deviation present. Substernal extension is present. No axillary or supraclavicular adenopathy. Prominent degenerative changes of the spine are present. Abdomen: Imaged portions of the upper abdomen demonstrate a large gallstone contained within the gallbladder which is peripherally calcified. Otherwise, the included portions of the upper abdomen are unremarkable. IMPRESSION: 1. Limited evaluation of the pulmonary arteries related to suboptimal contrast timing. No large pulmonary emboli. 2. Bronchial wall thickening with posterior costophrenic angle consolidation is suspicious for bronchitis and pneumonia. 3. Small bilateral effusions. 4. Intralobular septal thickening may be chronic. However, superimposed pulmonary edema may be present. 5. Cholelithiasis. 6. Enlarged thyroid with a prominent left thyroid nodule. Please consider thyroid ultrasound for further evaluation, which may be performed on a nonemergent basis. Note: The preliminary [facility] report and the final report are concordant. Dictated by: Daniel Cross M.D. on 10/29/2018 at 13:32 Approved by: Daniel Cross M.D. on 10/29/2018 at 13:36
[2018-10-29] MEDS: HEPARIN 5,000 UNIT/ML VIAL 5000 UNIT SUBCUT ×3 (06:00→21:02)
--- NOTE | 2018-10-29 07:02 | PM.EVENT ---
Date Patient Seen: 10/29/18 Time Patient Seen: 07:02 CTA of chest reviewed Multinodular thyromegaly extends into the upper mediastinum Extensive bilateral interstitial infiltrates, septal thickening, and small pleural effusions present Question of infrahilar consolidation, anterior basal segment of right lower lobe No pericardial effusion Heart size is normal No mediastinal adenopathy Mildly enlarged right hilar lymph nodes, suspected Central airways unremarkable There is sufficient opacification of the central pulmonary arteries with contrast to rule out filling defect. The segmental and subsegmental branches are not completely pass a fight, and small peripheral thromboembolism cannot be ruled out No evidence of aneurysm or dissection Cholelithiasis No significant bone lesions This is a preliminary read from Radiology IV fluids discontinued. Patient will be given a 1 mg dose of Bumex. Obtain post void residual, discussed with the nurse Will order an echocardiogram Make patient NPO, will order a swallow evaluation out of concern for aspiration Discussed ABX regimen with the oncoming physician, decision was made to change patient to Unasyn
[2018-10-29 07:55] LABS: Add Manual Diff / Slide Review NO; Basophils Absolute Auto 0 /uL (0-100); Basophils Percent Auto 0.3 % (0-2); Eosinophils Absolute Auto 1400 /uL (0-450); Eosinophils Percent Auto 9.6 % (2-4); Hematocrit 37.1 % (36-46); Hemoglobin 12.4 g/dL (12.0-16.0); Lymphocytes Absolute Auto 400 /uL (1100-4500); Mean Corpuscular HGB Conc 33.4 % (30-36); Mean Corpuscular Hemoglobin 29.6 PG (26-34); Mean Corpuscular Volume 88.7 fL (80-100); Monocytes Absolute Auto 900 /uL (0-900); Monocytes Percent Auto 5.9 % (3-14); Neutrophils Absolute Auto 11900 /uL (1500-7000); Neutrophils Percent Auto 81.2 % (50-75); Platelet Count 218 X10^3/uL (150-400); Red Blood Cell Count 4.18 X10^6/uL (4.0-5.2); Red Cell Distribution Width 14.8 % (11.6-14.8); White Blood Cell Count 14.6 X10^3/uL (4.5-11.0)
[2018-10-29 08:05] LABS: Blood Urea Nitrogen 14 mg/dL (7-17); Calcium 8.3 mg/dL (8.4-10.2); Carbon Dioxide 23 mmol/L (22-32); Chloride 105 mmol/L (98-107); Estimated Glomerular Filt Rate > 60.0 mL/min (>60); Glucose 118 mg/dL (80-110); HEMOLYSIS < 15 (0-50); Potassium 3.2 mmol/L (3.4-5.1); Sodium 136 mmol/L (137-145)
[2018-10-29] MEDS: AMPICILLIN/SULBACTAM 1.5 GM 1.5 GM in SODIUM CHLORIDE 0.9% 100 ML IV ×3 (08:12→19:54)
[2018-10-29] MEDS: BUMETANIDE 1 MG/4 ML VIAL IV (08:13)
--- NOTE | 2018-10-29 10:43 | P.PN_ITS ---
Subjective Date Patient Seen: 10/29/18 Time Patient Seen: 10:41 Interval history: Follow-up on sepsis and aspiration pneumonia Patient seen at bedside. She is doing better this morning. She states she is still a bit short of breath and continues to have nonproductive cough (which both has been going on for 2 days). She denies any chest pain at this time. Denies any sore throat or rhinorrhea. Denies any fever currently. Denies any headaches or blurry vision or lightheadedness. Patient denies any nausea or vomiting at this particular time. Exam Vital Signs (past 8 hours): - 10/29/18 05:00 10/29/18 05:20 10/29/18 05:25 Temperature 98.5 F Pulse Rate 86 Respiratory Rate 24 Blood Pressure 107/78 Pulse Oximetry 95 93 85 L 10/29/18 05:30 10/29/18 07:40 10/29/18 07:45 Temperature 99.3 F Pulse Rate 97 H Respiratory Rate 20 Blood Pressure 105/55 L Pulse Oximetry 94 93 93 Oxygen Delivery Method Nasal Cannula Oxygen Flow Rate 2 Narrative Exam Narrative: General: No acute distress, AAO x3.Obese individual HEENT: PERRLA bilaterally, normocephalic and atraumatic head, moist mucous membranes Neck: Supple, no LAD or JVD CV: Regular rate rhythm, no murmurs or gallop Respiratory: Good respiratory effort bilaterally, mild crackles heard at bases. No wheezing at this time. Abdomen: Positive bowel sounds in all 4 quadrants, nontender to palpation, no organomegaly\ Extremities: Obese lower extremities bilaterally, but no pitting edema obse rved. 2+ pulses in all extremities Musculoskeletal: Normal range of motion Neuro: No focal deficits, AAO x3 Psych: Appropriate mood and behavior. Able to make her own decisions Objective Labs Result Diagrams: 10/29/18 07:45 10/29/18 07:45 Labs: Laboratory Results - last 24 hr 10/28/18 10/28/18 10/28/18 19:00 19:00 19:00 WBC RBC Hgb Hct MCV MCH MCHC RDW Plt Count Neut % (Auto) Lymph % (Auto) [place] % (Auto) Eos % (Auto) Baso % (Auto) Neut # (Auto) Lymph # (Auto) [place] # (Auto) Eos # (Auto) Baso # (Auto) D-Dimer 599 H Sodium Potassium Chloride Carbon Dioxide BUN Creatinine Estimated GFR BUN/Creatinine Ratio Glucose Lactate Calcium Total Bilirubin AST ALT Alkaline Phosphatase Troponin I < 0.012 B-Natriuretic Peptide < 100 Total Protein Albumin Globulin Albumin/Globulin Ratio Procalcitonin Urine RBC Urine WBC Ur Squamous Epith Cells Amorphous Sediment Urine Bacteria Granular Casts Urine Mucus Ur Culture Indicated? Chlamy pneumoniae PCR Adenovirus (PCR) B.parapertussis DNA PCR Coronavirus OC43 (PCR) Coronavirus HKU1 (PCR) Coronavirus 229E (PCR) Coronavirus NL63 (PCR) Human Metapneumovir PCR Influenza Type A (PCR) Influenza Type B (PCR) Influenza A & B (PCR) M. pneumoniae (PCR) Parainfluenza 1 (PCR) Parainfluenza 2 (PCR) Parainfluenza 3 (PCR) Parainfluenza 4 (PCR) RSV (PCR) Entero/Rhino (PCR) 10/28/18 10/28/18 10/28/18 19:05 19:05 19:05 WBC 20.7 H RBC 4.61 Hgb 13.6 Hct 40.9 MCV 88.8 MCH 29.4 MCHC 33.2 RDW 14.6 Plt Count 257 Neut % (Auto) 92.5 H Lymph % (Auto) 1.2 L [place] % (Auto) 3.7 Eos % (Auto) 2.1 Baso % (Auto) 0.5 Neut # (Auto) 80154 H Lymph # (Auto) 200 L [place] # (Auto) 800 Eos # (Auto) 400 Baso # (Auto) 100 D-Dimer Sodium 134 L Potassium 3.6 Chloride 101 Carbon Dioxide 22 BUN 18 H Creatinine 0.80 Estimated GFR > 60.0 BUN/Creatinine Ratio 22.5 H Glucose 161 H Lactate Calcium 9.8 Total Bilirubin 1.3 AST 24 ALT 23 Alkaline Phosphatase 95 Troponin I B-Natriuretic Peptide Total Protein 6.8 Albumin 3.9 Globulin 2.9 Albumin/Globulin Ratio 1.3 Procalcitonin 0.96 H Urine RBC Urine WBC Ur Squamous Epith Cells Amorphous Sediment Urine Bacteria Granular Casts Urine Mucus Ur Culture Indicated? Chlamy pneumoniae PCR Adenovirus (PCR) B.parapertussis DNA PCR Coronavirus OC43 (PCR) Coronavirus HKU1 (PCR) Coronavirus 229E (PCR) Coronavirus NL63 (PCR) Human Metapneumovir PCR Influenza Type A (PCR) Influenza Type B (PCR) Influenza A & B (PCR) M. pneumoniae (PCR) Parainfluenza 1 (PCR) Parainfluenza 2 (PCR) Parainfluenza 3 (PCR) Parainfluenza 4 (PCR) RSV (PCR) Entero/Rhino (PCR) 10/28/18 10/28/18 10/28/18 19:05 19:10 20:40 WBC RBC Hgb Hct MCV MCH MCHC RDW Plt Count Neut % (Auto) Lymph % (Auto) [place] % (Auto) Eos % (Auto) Baso % (Auto) Neut # (Auto) Lymph # (Auto) [place] # (Auto) Eos # (Auto) Baso # (Auto) D-Dimer Sodium Potassium Chloride Carbon Dioxide BUN Creatinine Estimated GFR BUN/Creatinine Ratio Glucose Lactate 1.7 Calcium Total Bilirubin AST ALT Alkaline Phosphatase Troponin I B-Natriuretic Peptide Total Protein Albumin Globulin Albumin/Globulin Ratio Procalcitonin Urine RBC None seen Urine WBC 1-5/hpf Ur Squamous Epith Cells 10-30 /hpf H Amorphous Sediment 1+ Urine Bacteria Few (2-10) H Granular Casts 0-1/lpf Urine Mucus 1+ H Ur Culture Indicated? Cult not indicated Chlamy pneumoniae PCR Adenovirus (PCR) B.parapertussis DNA PCR Coronavirus OC43 (PCR) Coronavirus HKU1 (PCR) Coronavirus 229E (PCR) Coronavirus NL63 (PCR) Human Metapneumovir PCR Influenza Type A (PCR) Influenza Type B (PCR) Influenza A & B (PCR) Negative M. pneumoniae (PCR) Parainfluenza 1 (PCR) Parainfluenza 2 (PCR) Parainfluenza 3 (PCR) Parainfluenza 4 (PCR) RSV (PCR) Entero/Rhino (PCR) 10/29/18 10/29/18 10/29/18 00:45 07:45 07:45 WBC 14.6 H RBC 4.18 Hgb 12.4 Hct 37.1 MCV 88.7 MCH 29.6 MCHC 33.4 RDW 14.8 Plt Count 218 Neut % (Auto) 81.2 H Lymph % (Auto) 3.0 L [place] % (Auto) 5.9 Eos % (Auto) 9.6 H Baso % (Auto) 0.3 Neut # (Auto) 85459 H Lymph # (Auto) 400 L [place] # (Auto) 900 Eos # (Auto) 1400 H Baso # (Auto) 0 D-Dimer Sodium 136 L Potassium 3.2 L Chloride 105 Carbon Dioxide 23 BUN 14 Creatinine 0.70 Estimated GFR > 60.0 BUN/Creatinine Ratio 20.0 Glucose 118 H Lactate Calcium 8.3 L Total Bilirubin AST ALT Alkaline Phosphatase Troponin I B-Natriuretic Peptide Total Protein Albumin Globulin Albumin/Globulin Ratio Procalcitonin Urine RBC Urine WBC Ur Squamous Epith Cells Amorphous Sediment Urine Bacteria Granular Casts Urine Mucus Ur Culture Indicated? Chlamy pneumoniae PCR Not detected Adenovirus (PCR) Not detected B.parapertussis DNA PCR Not detected Coronavirus OC43 (PCR) Not detected Coronavirus HKU1 (PCR) Not detected Coronavirus 229E (PCR) Not detected Coronavirus NL63 (PCR) Not detected Human Metapneumovir PCR Not detected Influenza Type A (PCR) Not detected Influenza Type B (PCR) Not detected Influenza A & B (PCR) M. pneumoniae (PCR) Not detected Parainfluenza 1 (PCR) Not detected Parainfluenza 2 (PCR) Not detected Parainfluenza 3 (PCR) Not detected Parainfluenza 4 (PCR) Not detected RSV (PCR) Not detected Entero/Rhino (PCR) Not detected Assessment & Plan Assessment & Plan narrative: 68-year-old female with past medical history of anxiety, arthritis, chronic lower extremity edema, hyperlipidemia, hypertension, osteoarthritis, recurrent UTIs presented to ED with fever and vomiting. She was found to be septic with a likely source of aspiration pneumonia, as well as fluid overloaded. She is being treated for pneumonia and diuresed 1. Sepsis, acute, active -likely due to aspiration pneumonia. Less likely urinary source -the patient is currently afebrile with normalization of heart rate and respiratory rate, respiratory rate, and saturating 93% on 2 L oxygen -hemodynamically stable with blood pressure of 105/55 -lactate normal at 1.7, however procalcitonin elevated at 0.9. Leukocytosis of 20K which now decreased to 14K -UA was dirty draw but found to be negative for infection, and therefore urine cultures were not drawn -viral respiratory panel is negative -chest x-ray revealed left basilar pulmonary radiopacity suspicious for aspiration/infection as well as diffuse interstitial opacities associated with fluid overload -CTA PE performed due to D-dimer elevation of 599, which revealed multinodular thyromegaly extending into mediastinum, extensive bilateral interstitial infiltrates, septal thickening and small pleural effusions, questionable infrahilar consolidation in the right lower lobe. No PE was found in the pulmonary arteries, however subsegmental branches were and completely visualized -patient is status post 3 L IV resuscitation in ED with now developing pleural effusions. Will hold IV fluids and administer diuretics instead -patient was started on Unasyn to cover aspiration pneumonia, will continue -blood cultures pending 2. Aspiration pneumonia, acute, active -patient is currently on Unasyn, will continue -speech and swallow eval pending 3. Acute hypoxic respiratory failure, improving -likely due to aspiration pneumonia versus fluid overload -chest x-ray and CT findings as above -IV fluids were stopped and patient was given Bumex 1 mg IV with good urinary response -continue Bumex .5mg IV b.i.d. and the Minocin for aspiration coverage -echo ordered to evaluate for heart dysfunction -daily weights, monitor I/O 4. Essential hypertension, chronic, stable -blood pressure is stable -hold all antihypertensive medications as patient is receiving Bumex 1 mg IV b.i.d. -monitor blood pressure 5. Depression, chronic, stable -continue trazodone and citalopram DNR/DNI Dispo: Patient is here being treated for fluid overload and sepsis secondary to aspiration pneumonia. Continue antibiotic therapy in light diuresis. Quality VTE Deep Vein Thrombosis/Pulmonary Embolism Present on Admission: No
[2018-10-29] MEDS: POTASSIUM CHLORIDE 40 MEQ in SODIUM CHLORIDE 0.9% 500 ML 130 ML IV (11:47)
[2018-10-29] MEDS: CITALOPRAM 10 MG TABLET PO (12:50)
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
--- NOTE | 2018-10-29 15:08 | CM.IDA ---
Initial DCP Assessment Note: Pt is a 68 yo female, lives in an RV w/spouse Carlitos in [facility]. Pt is admitted w/suspected aspiration pneumonia. PCP unknown Payer: Virgilio GARCIA Met w/pt and her Carlitos today, explained role. Pt typically indp in everything she does. Pt and spouse sold their home 2 years ago and moved into their 5th wheel. Dtr Janee Mott# [phone] lives in [place]. Pt expects to return to her RV w/spouse when medically cleared, no expected needs from [facility] team. KINDRA Bradley Discharge Planning/Care Management CM Discharge Assessment Start: 10/29/18 15:07 Freq: Status: Active Protocol: Document 10/29/18 15:07 TRISTON (Rec: 10/29/18 15:08 TRISTON [id number]) Discharge Planning Assessment Assigned Car Hop KINDRA Caballero DPOA/Assigned Designee Name Carlitos Carrasco, spouse Contact Information [phone] Advance Directives? Yes Advance Directives on File Yes History Provided By Patient Prior Living Arrangements RV Household Members spouse Type of transporation used prior to Drives own vehicle admit Independent with ADL's Yes Is patient alert and oriented? Yes Barriers to Discharge No Discharge Plan Home Transportation Arrangement Family Referrals Initiated None needed Whiteboard Updated in Patient Room with Yes name and ext. # of Car Hop Review Status In Process
[2018-10-29] MEDS: SODIUM CHLORIDE 0.9% 1,000 ML 84 ML IV (17:16)
[2018-10-29] MEDS: ONDANSETRON 4 MG/2 ML INJ IV (17:17)
[2018-10-29] MEDS: ALBUTEROL 2.5 MG/3 ML NEB (ADULT) INH (19:59)
[2018-10-29] MEDS: TRAZODONE 100 MG TABLET PO (21:02)
[2018-10-29] MEDS: BUMETANIDE 1 MG/4 ML VIAL 0.5 MG IV (21:02)
--- NOTE | 2018-10-29 22:52 | PC.NURSE ---
Pt nauseated and unable to eat dinner, given zofran IV but reports poor appetite. IV abx continue - IV sites in bilat AC dc'd, new site in left FA which is more comfortable for her. Pt calm and cooperative with all cares. UP to bedside commode to void. SCDs in place.
[2018-10-30] VITALS (7 sets, daily range): BP systolic 111–122; BP diastolic 48–58; PULSE 73–88; RESP 17–20; TEMP 36.4–36.8; O2SAT 91–98
[2018-10-30] MEDS: AMPICILLIN/SULBACTAM 1.5 GM 1.5 GM in SODIUM CHLORIDE 0.9% 100 ML IV ×4 (01:00→20:55)
--- NOTE | 2018-10-30 02:46 | PC.NURSE ---
Assumed care of pt at 2300 on 10/29/18. Pt sleeping during hand-off. Awakens to voice for medication administration and assessment. Denies pain, Denies sob while at rest. 2L NC sats 96%. IVF and IV ABX per aug. Pt able to reposition in bed independently. SBA for oob. No PVR bladder scanning documented. This proposal manager writer plans to ask pt when awake if bladder scanning was done in the last two shifts. Bed alarm on for safety.
--- NOTE | 2018-10-30 06:00 | DI.RAD.S_ITS ---
PROCEDURE: XR CHEST 1V INDICATIONS: aspir pna, dyspnea TECHNIQUE: One view of the chest was acquired. COMPARISON: None. FINDINGS: Surgical changes and devices: None. Lungs and pleura: Persistent diffuse interstitial prominence and patchy ill-defined left greater than right bibasilar opacities. Small bilateral pleural effusions. No pneumothorax. Mediastinum: Cardiomediastinal contours are stable. Bones and chest wall: No suspicious bony lesions. Overlying soft tissues appear unremarkable. IMPRESSION: 1. Persistent diffuse interstitial prominence and left greater than right patchy bibasilar opacities with small bilateral pleural effusions. Findings may represent pulmonary edema with infectious process not excluded if clinically appropriate. Overall, no significant interval change in cardiopulmonary evaluation. Dictated by: Oumar Herring M.D. on 10/30/2018 at 7:09 Approved by: Oumar Herring M.D. on 10/30/2018 at 7:11
[2018-10-30] MEDS: BUMETANIDE 1 MG/4 ML VIAL 0.5 MG IV ×3 (06:09→22:14)
[2018-10-30] MEDS: HEPARIN 5,000 UNIT/ML VIAL 5000 UNIT SUBCUT ×3 (06:09→22:14)
[2018-10-30 06:37] LABS: Add Manual Diff / Slide Review NO; Basophils Absolute Auto 0 /uL (0-100); Basophils Percent Auto 0.3 % (0-2); Eosinophils Absolute Auto 2100 /uL (0-450); Eosinophils Percent Auto 24.4 % (2-4); Hematocrit 35.3 % (36-46); Hemoglobin 11.9 g/dL (12.0-16.0); Lymphocytes Absolute Auto 1200 /uL (1100-4500); Lymphocytes Percent Auto 13.5 % (25-40); Mean Corpuscular HGB Conc 33.8 % (30-36); Mean Corpuscular Hemoglobin 30.1 PG (26-34); Monocytes Absolute Auto 500 /uL (0-900); Monocytes Percent Auto 5.8 % (3-14); Neutrophils Absolute Auto 4900 /uL (1500-7000); Platelet Count 215 X10^3/uL (150-400); Red Blood Cell Count 3.97 X10^6/uL (4.0-5.2); Red Cell Distribution Width 14.8 % (11.6-14.8); White Blood Cell Count 8.7 X10^3/uL (4.5-11.0)
[2018-10-30 06:46] LABS: BUN Creatinine Ratio 17.1 (6-22); Blood Urea Nitrogen 12 mg/dL (7-17); Carbon Dioxide 26 mmol/L (22-32); Chloride 106 mmol/L (98-107); Estimated Glomerular Filt Rate > 60.0 mL/min (>60); Glucose 86 mg/dL (80-110); HEMOLYSIS < 15 (0-50); Potassium 3.1 mmol/L (3.4-5.1); Sodium 140 mmol/L (137-145)
[2018-10-30 07:13] LABS: Procalcitonin 2.23 ng/mL (<0.5)
[2018-10-30] MEDS: CITALOPRAM 10 MG TABLET PO (08:16)
[2018-10-30] MEDS: PHENAZOPYRIDINE 100 MG TABLET 200 MG PO ×2 (08:16→17:20)
[2018-10-30] MEDS: POTASSIUM CHLORIDE 40 MEQ in SODIUM CHLORIDE 0.9% 500 ML 130 ML IV (10:09)
[2018-10-30] MEDS: ACETAMINOPHEN 325 MG TABLET 650 MG PO (18:06)
--- NOTE | 2018-10-30 20:56 | PC.NURSE ---
Pt A/O x4, 94% 1.5L nc, bilat bases with light wheezes, provided I.S. using appropriately, 2 breaths to 1500. LFA SL and ABO's . bilat scars to knees. BT+ denies nausea. Tele in place with NSR x2. Calf SCD's on. Bed alarm on for safety.
[2018-10-30] MEDS: TRAZODONE 100 MG TABLET PO (22:07)
--- NOTE | 2018-10-30 22:53 | P.PN_ITS ---
Subjective Date Patient Seen: 10/30/18 Interval history: Luanne Carrasco is a 68-year-old female with a past medical history significant for hypertension, hyperlipidemia, anxiety, osteoarthritis, chronic lower extremity edema, and recurrent UTIs who presented to ED with fever and vomiting. She was found to be septic with a likely source of aspiration pneumonia, as well as fluid overloaded. She is being treated for pneumonia and diuresed. The patient is resting in bed comfortably. She reports her non-productive cough is improving and she no longer has a ball and pressure like sensation to cough up out of her lungs. She does report that her sputum feels as though she can bring it up but cant expectorate it completely. Ordered an acapella. The patient has had no more nausea, fever or chills. She also reports her appetite is slowly returning. She endorses shortness of breath and continues to be on oxygen at 2L and desats to high 80's without. She denies headache, chest pain, abdominal pain, dysuria, diarrhea or constipation. She is voiding and eliminating without difficulty. She is up ambulating minimally without assistance. Exam Vital Signs (past 8 hours): - 10/30/18 16:10 10/30/18 19:11 10/30/18 20:01 Temperature 97.6 F 97.5 F L Pulse Rate 73 77 77 Respiratory Rate 18 18 18 Blood Pressure 119/48 L 122/58 L Pulse Oximetry 94 96 98 Oxygen Delivery Method Nasal Cannula Oxygen Flow Rate 2 Narrative Exam Narrative: General: Middle aged morbidly obese female resting in bed comfortably, in no acute distress, well-developed, well-nourished, appropriately interactive. HEENT: Normocephalic, atraumatic. External ears without defect. Pupils equal, round, and reactive to light. Anicteric sclerae, moist conjunctivae, and no lid lag. Oropharynx free of erythema and cobble stoning with moist mucosa. Neck: Supple with full range of motion. No jugular venous distension. No lymphadenopathy. Cardiovascular: Regular rate and rhythm with no murmurs, rubs, or gallops appreciated Pulmonary: Clear to auscultation bilaterally with bibasilar rhonchi and fine crackles. No wheezes. Normal respiratory effort with no use of accessory muscles. Abdomen: Soft, nontender, nondistended. No hepatosplenomegaly or masses appreciated. Extremities: No clubbing, cyanosis, or edema. Skin: Normal temperature, turgor, and texture; no rash, ulcers, or subcutaneous nodules appreciated. Neurological: Cranial nerves grossly intact. Psychiatric: Normal mood and affect. Alert and oriented to person, place, and time. Objective Labs Result Diagrams: 10/30/18 06:16 10/31/18 05:58 Labs: Laboratory Results - last 24 hr 10/30/18 10/30/18 10/30/18 06:16 06:16 06:16 WBC 8.7 RBC 3.97 L Hgb 11.9 L Hct 35.3 L MCV 89.0 MCH 30.1 MCHC 33.8 RDW 14.8 Plt Count 215 Neut % (Auto) 56.0 D Lymph % (Auto) 13.5 L [place] % (Auto) 5.8 Eos % (Auto) 24.4 H Baso % (Auto) 0.3 Neut # (Auto) 4900 Lymph # (Auto) 1200 [place] # (Auto) 500 Eos # (Auto) 2100 H Baso # (Auto) 0 Sodium 140 Potassium 3.1 L Chloride 106 Carbon Dioxide 26 BUN 12 Creatinine 0.70 Estimated GFR > 60.0 BUN/Creatinine Ratio 17.1 Glucose 86 Calcium 9.0 Procalcitonin 2.23 H Assessment & Plan Assessment & Plan narrative: Luanne Carrasco is a 68-year-old female with a past medical history significant for hypertension, hyperlipidemia, anxiety, osteoarthritis, chronic lower extremity edema, and recurrent UTIs who presented to ED with fever and vomiting. She was found to be septic with a likely source of aspiration pneumonia, as well as fluid overloaded. She is being treated for pneumonia and diuresed. 1. Acute sepsis, present on admission. Resolved. -Patient met sepsis criteria including: Tachycardic (HR132), Febrile (Temp 103.6F), leukocytosis (WBC 20.7), and procalcitonin 0.96 with source being aspiration pneumonia. LA normal. UA negative. -Early goal directed therapy met including: IV fluids (gentle as patient may have fluid overload) and broad spectrum antibiotics. 2. Acute aspiration pneumonia, present on admission. Active. -Patient endorses occasional choking but no more than the average person. Denies dysphagia. -WBC and procalcitonin elevated at 20.7 and 0.96 respectively. WBC trended down to normal and procalcitonin likely peaked several days ago but was not checked. PCT 2.23 today. Continue to monitor. -Consulted speech therapy for evaluation and treatment. MBS planned for tomorrow when ST returns. -Chest x-ray demonstrated left basilar pulmonary radiopacity suspicious for aspiration/infection, as well as, diffuse interstitial opacities associated with fluid overload. -CTA PE performed due to D-dimer elevation of 599, which demonstrated multinodular thyromegaly extending into mediastinum, extensive bilateral interstitial infiltrates, septal thickening and small pleural effusions, questionable infrahilar consolidation in the right lower lobe. No PE was found in the pulmonary arteries, however subsegmental branches were and completely visualized. -Patient received 3 L IV resuscitation in ED with developing pleural effusions. Stopped IV fluids today with NS at 50 mL/hr which was being given for gentle hydration in setting of sepsis as above. -Complete pneumonia work-up ordered including: Respiratory viral PCR negative. Sputum not collected as patient has a non-productive cough. Blood cultures have no growth to date. -Continue Unasyn 1.5 mg every 6 hours to treat aspiration pneumonia, sp ecifically anarobes. 3. Acute hypoxemic respiratory failure, present on admission. Resolving. -Secondary to aspiration pneumonia and possibly fluid overload. -Chest x-ray and CT findings as above. -Continue Bumex 0.5 mg IV every 8 hours to treat fluid overload as below and Unasyn as above to treat aspiration pneumonia. -Continue supplemental oxygen as needed and titrate off as tolerated. Oxygen saturation goal 88%. 4. Probable fluid overload, present on admission. Resolving. -Patient presented with shortness of breath and hypoxemic respiratory failure. No history of CHF. -Possible secondary to new onset CHF versus IV fluids and aspiration. -Chest x-ray and CTA demonstrated small bilateral pleural effusions and mild pulmonary edema. -Ordered echocardiogram, pending. -Continue daily weights and strict I/O. -Continue Bumex 0.5 mg IV every 8 hours to treat fluid overload. 5. Essential hypertension, chronic, present on admission. Stable. -Blood pressure is stable. -Held all antihypertensive medications as patient is receiving Bumex 0.5 mg IV every 8 hours. -Continue to monitor blood pressure closely. 6. Depression, chronic, present on admission. Stable. -Continue trazodone 100 mg at bedtime and citalopram 10 mg daily. Disposition: Patient will likely discharge home in several days after improvement with treatment for aspiration pneumonia and possible fluid overload. Quality VTE Deep Vein Thrombosis/Pulmonary Embolism Present on Admission: No
[2018-10-31] VITALS (8 sets, daily range): BP systolic 119–148; BP diastolic 54–75; PULSE 65–83; RESP 16–19; TEMP 36.6–37; O2SAT 93–96
--- NOTE | 2018-10-31 | DI.US.S_ITS ---
PROCEDURE: US THYROID INDICATIONS: GOITER TECHNIQUE: Real-time scanning was performed of the thyroid gland, with image documentation. COMPARISON: [facility], CT, CT ANGIO CHEST PE PROTOCOL, 10/29/2018, 4:56. FINDINGS: Right: Thyroid lobe measures 6.5 x 2.8 x 2.4 cm, and is mildly heterogeneous in echotexture. Left: Thyroid lobe measures 7.7 x 2.8 x 4.4 cm, and is diffusely heterogeneous in echotexture. Isthmus: 7 mm thick. The entire left lobe is difficult to image secondary to a substernal position of the lower pole. There is vague nodularity along the medial lower aspect. Multiple mildly complex cystic spaces are present. No macrocalcifications. Heterogeneous vascularity. The right thyroid lobe contains a 1.4 cm spongiform superior pole nodule and multiple other subcentimeter hypoechoic foci scattered throughout the mid and lower poles. IMPRESSION: 1. Diffuse, nodular enlargement of the left thyroid lobe, better demonstrated by cross-sectional imaging. The medial lower aspect of the left lobe was targeted for fine needle aspiration. This procedure was reported separately. 2. Benign-appearing nodular changes in the right thyroid lobe. Dictated by: Brandie Vegas M.D. on 10/31/2018 at 17:17 Approved by: Brandie Vegas M.D. on 10/31/2018 at 17:22
--- NOTE | 2018-10-31 | DI.RAD.S_ITS ---
PROCEDURE: FL BARIUM SWALLOW W SPEECH INDICATIONS: dysphagia TECHNIQUE: Examination was conducted in conjunction with speech pathology per standard protocol. In the lateral projection, filming was performed of the patient swallowing. AP projection filming may also be performed with patient swallowing. COMPARISON: None. FINDINGS: Function: The oral preparatory phase appears normal, with proper containment. The subsequent oral propulsive phase, pharyngeal phase, and esophageal phase of swallowing also appear normal with all proffered substances. No laryngotracheal penetration or aspiration. No pathologic vallecular pooling. Morphology: No cricopharyngeal bar is identified. No cervical esophageal webs. No Zenker's diverticulum. No strictures. IMPRESSION: 1. No rashawn aspiration or significant laryngeal penetration noted. 2. Please refer to speech pathology report for full detailed report and recommendations. Dictated by: Brandie Vegas M.D. on 10/31/2018 at 12:11 Approved by: Brandie Vegas M.D. on 10/31/2018 at 12:12
--- NOTE | 2018-10-31 | PATH_ITS ---
Note [facility] Accession Number: [id number] TESTS RESULT FLAG UNITS REF RANGE LAB Clinician Provided Cytology Information No. of containers..01 ThinPrep Vial 01 LEFT THYROID NODULE DIAGNOSIS: LEFT THYROID NODULE NEGATIVE FOR MALIGNANT CELLS. BETHESDA CATEGORY II - BENIGN. SPECIMEN CONSISTS OF BENIGN FOLLICULAR CELLS, HEMOSIDERIN-LADEN MACROPHAGES, COLLOID, AND BLOOD. THIS PATTERN IS CONSISTENT WITH A COLLOID NODULE. THIS INTERPRETATION INCLUDES EVALUATION OF A CELL BLOCK. Pathologist ICD10: 02 E04.1 02 Antony Rolon MD, PhD, Pathologist NPI- [id number] Balwinder Nagy, Manager Project ([facility]) 01 30 CC, RED, CLOUDY /LCS FLAG LEGEND: L-Low Normal,H-High Normal,LL-Alert Low,HH-Alert High <-Panic Low,>-Panic High,A-Abnormal,AA-Critical Abnormal Performed at: 01 =Z [facility] [address], [place] [address] Stas Cuello MD, 02 LCLWA [facility] [address] [place] [id number] Minnie Saldivar MD, Performed at: 01 [facility] [address], [place], [place] [id number] MD Stas Cuello MD Phone: [phone]
--- NOTE | 2018-10-31 | DI.US.S_ITS ---
PROCEDURE: US FINE NEEDLE ASPIRATION INDICATIONS: Large thyroid nodule with mass effect TECHNIQUE: The indications, alternatives, benefits, risks, and complications of the procedure were explained to the patient. Written informed consent was obtained and placed in the chart. The thyroid region was examined sonographically and a site was chosen for ultrasound guided percutaneous sampling. The skin was prepared and draped in the usual fashion, and anesthetized with 1% lidocaine infiltrated from the skin down to the thyroid gland. 6 passes were then performed, with contents emptied into an appropriate pathology specimen container. A bandage was applied to the area of access at completion of the study. COMPARISON: None. FINDINGS: Location(s) of lesion(s) sampled: Medial left lower pole thyroid [place]: 25 gauge hypodermic needles. Number of passes: 6 Medications: 1% lidocaine for local anaesthesia. Complications: None. IMPRESSION: Successful ultrasound-guided thyroid nodule fine needle aspiration, with cytology results pending. Please see chart below for management recommendations based on cytology results. Gepp System ReportingRecommendationsNon-diagnostic* Repeat US-guided FNA, with on-site cytology evaluation if possible. * Repeated non-diagnostic nodules without high suspicion US features: close observation vs surgical consult. * Consider surgery if nodule has high suspicion US features, grows >20% in 2 dimensions on followup, or patient has clinical risk factors for malignancy. Benign* If nodule has high suspicion US features: repeat US and FNA within 12 months. * If nodule has low to intermediate suspicion US features: repeat US at 12-24 months. If nodule grows (20% increase in at least 2 dimensions, with minimal increase of 2 mm or >50% change in volume), or development of new suspicious US features, then repeat FNA or continue followup. * If nodule has very low suspicion US features: followup US at >24 months. Atypia of undetermined significance, follicular lesion of undetermined significanceRepeat FNA, molecular testing, followup US, or surgical consult.Follicular neoplasm, suspicious for follicular neoplasmSurgical consult; also consider molecular testing. Suspicious for malignancySurgical consult.MalignantSurgical consult. Dictated by: Brandie Vegas M.D. on 10/31/2018 at 15:35 Approved by: Brandie Vegas M.D. on 10/31/2018 at 15:36
[2018-10-31] MEDS: AMPICILLIN/SULBACTAM 1.5 GM 1.5 GM in SODIUM CHLORIDE 0.9% 100 ML IV ×4 (01:40→19:19)
[2018-10-31] MEDS: HEPARIN 5,000 UNIT/ML VIAL 5000 UNIT SUBCUT ×2 (06:10→21:33)
[2018-10-31] MEDS: BUMETANIDE 1 MG/4 ML VIAL 0.5 MG IV ×3 (06:11→21:33)
[2018-10-31 06:42] LABS: Blood Urea Nitrogen 12 mg/dL (7-17); Calcium 9.2 mg/dL (8.4-10.2); Carbon Dioxide 30 mmol/L (22-32); Chloride 104 mmol/L (98-107); Estimated Glomerular Filt Rate > 60.0 mL/min (>60); Glucose 89 mg/dL (80-110); HEMOLYSIS < 15 (0-50); Potassium 3.5 mmol/L (3.4-5.1); Sodium 140 mmol/L (137-145)
[2018-10-31 06:58] LABS: Procalcitonin 1.33 ng/mL (<0.5)
[2018-10-31 07:18] LABS: TSH w/ Reflex to FT4 0.61 uIU/mL (0.47-4.68)
[2018-10-31] MEDS: PHENAZOPYRIDINE 100 MG TABLET 200 MG PO ×2 (09:36→17:20)
[2018-10-31] MEDS: CITALOPRAM 10 MG TABLET PO (09:36)
--- NOTE | 2018-10-31 09:51 | PC.NURSE ---
Addendum entered by Marcela Pool R.N. 10/31/18 14:17: US - taken via wc to US for thyroid biopsy. Addendum entered by Marcela Pool R.N. 10/31/18 11:58: GI - returned from [facility], no complaints discomfort. Original Note: AM NOTE - pt is alert, standby assist to bsc w/void, denies abd or pelvic discomfort, no difficulty voiding, hr reg 72, bs coarse, 02 sat 1l 93%, occassional dry cough w/some clear sputum, no nausea.
--- NOTE | 2018-10-31 11:02 | PT.IIE ---
Current Diagnoses Anxiety disorder, unspecified (10/28/18) Surgical History (Last Reviewed 10/28/18 @ 22:01 by ANISH Connolly) History of 2 sections (Acute) History of arthroplasty of left knee (Acute 03/19/14) History of arthroplasty of right knee (Acute 10/23/13) History of colonoscopy (Acute ~10/2014) History of partial hysterectomy (Acute ~1983) Hx of appendectomy (Acute) Hx of tonsillectomy (Acute) Status post bilateral LASIK surgery (Acute) Medical History (Last Reviewed 10/28/18 @ 22:01 by ANISH Connolly) Anxiety (Acute) Arthritis (Acute) Edema (Acute) Former smoker (Acute) Gout (Acute) HLD (hyperlipidemia) (Acute) HTN (hypertension) (Acute) Hearing impaired (Acute) Osteoarthritis (Acute) Pre-diabetes (Acute) UTI (urinary tract infection) (Acute ~08/2018) Physical Therapy Inpatient Evaluation/Re-Eval M1 PT/OT-IP Prior Functional Status Start: 10/31/18 11:05 Freq: NEEDED Status: Active Protocol: Document 10/31/18 11:02 RS (Rec: 10/31/18 12:41 RS [id number]) Medical Review Prior Functional Status Medical History Reviewed Yes Diet/Fluid Consistency Regular Communication no known deficits Mobility and Gait ind without AD, no falls Activities of Daily Living and IADL's ind Social History Household Members spouse Living Arrangements RV Number of Floors (Floors) One Floor Home Environment Standard Height Toilet Walk in Shower Not Wheelchair Accessible Narrow Doors Employment Status Retired M2 PT-IP Current Condition Start: 10/31/18 11:05 Freq: NEEDED Status: Active Protocol: Document 10/31/18 11:02 RS (Rec: 10/31/18 12:41 RS [id number]) Physical Therapy Current Condition Current Condition Evaluation Date 10/31/18 Treatment Diagnosis slight IVERSON Onset Date 10/30/18 M3 PT-IP Subjective Start: 10/31/18 11:05 Freq: NEEDED Status: Active Protocol: Document 10/31/18 11:02 RS (Rec: 10/31/18 12:41 RS [id number]) Subjective Physical Therapy Visit Type Type Initial Evaluation Visit Start Time 10:15 Visit Stop Time 11:02 Total Visit Minutes 47 Physical Therapy Visit Comments Patient Comments Pt reports feeling a lot better, doesn't feel like she needs PT but is willing to participate. Patient Goals go home once medically ready Therapy Pain Assessment Pain When Pain Assessed At Rest Pain Present Pain Present Denied Pain M4 PT-IP Mobility and Gait Start: 10/31/18 11:05 Freq: NEEDED Status: Active Protocol: Document 10/31/18 11:02 RS (Rec: 10/31/18 12:41 RS [id number]) PT-Bed Mobility Assessment Supine to Sit Supine to Sit Independent Sit to Supine Sit to Supine Independent Scooting Scooting to Edge of Bed Independent PT-Transfer Assessment Sit to and From Stand Sit to and from Stand Independent Equipment Transfer Assistive Device None Transfers Transfer Destination Bed Chair Bedside Commode Transfer Technique Stand Step Pivot Transfer Ability Level of Assist Independent Comments Mobility Comments very steady, able to manage lines without difficulty Gait Assessment Gait Gait Assistance Required: Independent Assistive Devices Assistive Device None Gait Deviations General Gait Pattern Within Normal Limits Comments Gait Comments No LOB, no gait abnormalities, low fall risk Stair Climbing Assessment Evaluation Level of Assist On Stairs Independent Technique/Endurance Stair Climbing Direction Ascend and Descend Stair Climbing Technique Step to Step PT-Balance Assessment Sitting Balance and Reactions Static Sitting Balance Ability Normal Dynamic Sitting Balance Ability Normal Standing Balance and Reactions Static Standing Balance Ability Normal Dynamic Standing Balance Ability Good Device Used none M5 PT-IP Objective Assessments Start: 10/31/18 11:05 Freq: NEEDED Status: Active Protocol: Document 10/31/18 11:02 RS (Rec: 10/31/18 12:41 RS [id number]) Orientation Orientation/Cognition Level of Alertness Alert Orientation Name Age Birthday Month Date Year Day of Week Place Situation Language Function Ability No Deficits Noted Safety Awareness Understands Safety Issues Memory Description No Deficits Noted Gross Range of Motion Upper Extremity ROM Assessment Within Functional Limits Lower Extremity ROM Assessment Within Functional Limits Strength Upper Extremity Strength Assessment Within Functional Limits Lower Extremity Strength Assessment Within Functional Limits M6 PT-IP Treatment Start: 10/31/18 11:05 Freq: NEEDED Status: Active Protocol: Document 10/31/18 11:02 RS (Rec: 10/31/18 12:41 RS [id number]) Physical Therapy Treatment Education Education Provided Safety M7 PT-IP Assessment and Plan Start: 10/31/18 11:05 Freq: NEEDED Status: Active Protocol: Document 10/31/18 11:02 RS (Rec: 10/31/18 12:41 RS [id number]) PT Summary Assessment and Plan Potential Rehabilitation Potential Excellent Status of Condition at Evaluation Stable Summary Progress Towards Goals Safe For Discharge Assessment Summary Patient presents with some chronic BUE that are limiting her self-care (pt reports she is to have surgery in the near future), but otherwise pt is ind with mobility. There does not appear to be any acute decline in functional mobility , pt is at her baseline. Pt is safe to discharge home once medically appropriate. Pt has no acute PT needs, will sign off. Goals Bed Mobility Goal Independent Transfer Goal Independent Gait Goal Independent Frequency of Treatment Frequency Of Treatment Discharge Recommendations To Nursing Amount of Assist Needed Standby Assistance 1 Person Assist Discharge Recommendations PT Discharge Recommendations Home with Assistance
[2018-10-31 12:12] LABS: Free T4, Direct Thyroxine 1.65 ng/dL (0.78-2.19)
--- NOTE | 2018-10-31 16:36 | ST.SWALLOW ---
Care Team Visit Care Team Role Provider Type Stas Coker MD Family Provider Physician Specialty: Orthopedic Surgery Address: [address] [place] [address], [id number] Email: [email or web address] Richard Duncan DO Emergency Provider Physician Specialty: Emergency Medicine Address: [address] [place] [address], [id number] Email: [email or web address] ANISH Connolly Admit Provider [employer] Attending Provider Specialty: Internal Medicine Address: [address] [place] [address], [id number] Email: Modified Barium Swallow Study PERFORMANCE IMPROVEMENT COORDINATOR Modified Barium Swallow Study Start: 10/29/18 14:05 Freq: Status: Active Protocol: Document 10/31/18 14:07 MG (Rec: 10/31/18 14:33 MG [id number]) Modified Barium Swallow Study Total Time Visit Start Time 11:30 Visit Stop Time 12:00 Total Visit Minutes 30 Visit Information Visit Number 1 Setting Setting Acute Care Patient Information Identification Type Name ID Wristband Patient History 68-year-old female who presented to the ED on 08/2018 out of concern for persistent fever and rigors. Symptoms started early in the morning on day of ED presentation. Associated symptoms include headache, malaise, non-productive cough, wheezing, exertional dyspnea (recent), chest discomfort ( recent), dizziness (w/ position change), nausea and vomiting (x4 episodes). Admitted for bilateral aspiration pneumonia. Reports new onset of mid-sternal chest discomfort without radiation to the extremities, neck or jaw. Pt has a pending C3-T1 anterior cervical diskectomy and fusion scheduled for 11/08. Subjective Observations Pt appeared alert and agreeable to testing. Patient Positioning Position View Lateral Imaging Lateral View Textures Administered Trials Presented Thin Liquid via Spoon Thin Liquid via Cup Thin Liquid via Straw Lag[place] Liquid via Spoon [place] Liquid via Cup Regular Textures Oral Phase Source: MBSIMP (TM) (C) Bolus Specific Scoring Grid Lip Closure WFL Tongue Control During Bolus Hold Mild Impairment Bolus Prep/Mastication WFL Bolus Transport/Lingual Motion Mild Impairment Oral Residue Moderate Impairment Residue Clearing Moderate Impairment Nasal Regurgitation No Additional Oral Phase Observations Pt's lingual seal appeared WFL at this time. Bolus hold was noted to be impaired as evidenced by loss of bolus into the pyriform sinuses prior to swallow, indicating a delayed swallow. Moderate amounts of reside were noted in the oral cavity post- swallow. A spontaneous double swallow appeared to clear out some residue, but not all of it. Pt had adequate dentition and did not demonstrate any problems with the mastication of regular texture food (i.e., cracker with barium coating). Bolus formation was noted to be within a normal range. Pharyngeal Phase Source: MBSIMP (TM) (C) Bolus Specific Scoring Grid Delayed Initiation of Pharyngeal Swallow Yes: Pyriform sinus initiation of swallow Number of Seconds Delayed (seconds) 1-2 seconds Soft Palate Elevation WFL Tongue Base Strength/Range of Motion Moderate Impairment Residue Along the Tongue Base Yes Clearance of Residue Along Tongue Base Moderate Impairment Laryngeal Elevation Moderate Impairment Anterior Hyoid Movement Moderate Impairment Epiglottic Range of Motion Moderate Impairment Vallecular Residue Yes Clearance of Vallecular Residue Moderate Impairment Laryngeal Vestibular Closure Moderate Impairment Pharyngeal Stripping Wave Moderate Impairment Pharyngeal Contraction Moderate Impairment Posterior Pharyngeal Wall Residue Yes Clearance of Posterior Pharyngeal Wall Moderate Impairment Residue Upper Esophageal Sphincter Opening Mild Impairment Residue in the Pyriform Sinuses Yes Clearance of Residue in the Pyriform Moderate Impairment Sinuses Esophageal Clearance Upright Position Mild Impairment Pharyngoesophageal Backflow Observed No Additional Pharyngeal Phase Observations Tongue base appeared weak, noted by lack of bolus control and spillage into the oral cavity prior to swallow. Tongue did not elevate enough to forcefully move bolus down into the pharynx. The epiglottis was noted to have no or partial inversion, which leaves the airway unprotected . Hyolaryngeal elevation as well as anterior hyiod movement noted to be moderately impaired, impacting airway protection. Residue noted throughout pharyngeal cavity. Spontaneous double swallow would clear area, but not fully. Pt did not show any signs of aspiration or penetration throughout the evaluation. Pt did not report any sensation or feeling of globus during the evaluation as well. A/P View Esophageal Observations Esophageal Function Osteophytes appear to impede on the pharynx and/or UES during swallow. Clinical Impressions Dysphagia Type Moderate pharyngeal dysphagia Findings Pt has noted moderate pharyngeal dysphagia, which leaves the airway suseptable to foreign matter. While pt did not show aspiration or penetration during the evaluation, given the overall weakness of the pharyngeal muscles and limited ROM of structures, the possibility of silent aspiration cannot be ruled out. Additionally, pooling in the pharyngeal spaces may be accumulating over time, leading to silent aspiration. This may also be the cause of her throat clearing and coughing due to irritation of pooling on the vocal folds. Rehabilitation Potential Good Patient Appropriate for Therapy Yes: Monitor safe swallow strategies for efficacy and tolerance of diet Recommendations Diet Liquids Order Thin Diet Order Regular Medication Recommendation As Tolerated Aspiration Precautions Recommended Precautions Upright at 90 Degrees Effortful Swallow Treatment Plan Therapy Recommendations Other Short Term Goals Pt will follow through with swallow exercises to reduce aspiration risk. Halfway Goals Pt will tolerate least restricted diet and not show overt s/sx of aspiration while also fulfilling nutritional and hydration needs. Placement Recommendation After Discharge Home
--- NOTE | 2018-10-31 17:42 | ST.IPDYTX ---
Care Team Visit Care Team Role Provider Type Stas Coker MD Family Provider Physician Specialty: Orthopedic Surgery Address: [address] [place] [address], [id number] Email: [email or web address] Richard Duncan DO Emergency Provider Physician Specialty: Emergency Medicine Address: [address] [place] [address], [address] Email: [email or web address] Connolly Admit Provider [employer] Attending Provider Specialty: Internal Medicine Address: [address] [place] [address], [id number] Email: CRACKING MACHINE OPERATOR Dysphagia Treatment CRACKING MACHINE OPERATOR Dysphagia Treatment Start: 10/29/18 14:05 Freq: Status: Active Protocol: Document 10/31/18 17:29 MG (Rec: 10/31/18 17:37 MG [id number]) Dysphagia Treatment Session Time Visit Start Time 12:45 Visit Stop Time 13:15 Total Visit Minutes 30 Visit Information Visit Number 2 Setting Assessment Location Acute Care Visit Type Note Type Treatment Note Next Note Type Next Note Type Treatment Note Patient Information Identification Type Name ID Wristband Subjective Observations Pt was sitting in chair beside her bed. Pt was agreeable for the student CRACKING MACHINE OPERATOR and CRACKING MACHINE OPERATOR to enter the room. Treatment Treatment Activities Student CRACKING MACHINE OPERATOR and CRACKING MACHINE OPERATOR discussed MBS results with pt and provided education around the swallowing mechanism. Pt appeared to understand what was being talked about and asked questions when needed. Student CRACKING MACHINE OPERATOR and CRACKING MACHINE OPERATOR recommended to implement strategies to assist in reducing her risk of aspiration (i.e., continue chin tuck, effortful swallow, sitting upright). Pt was agreeable to implement the strategies and demonstrated them accurately. Pt reported that she did not have any coughing/choking events during her lunch, which she had directly after the MBS. Assessment Patient Response to Treatment Good Rehab Potential Good Assessment of Improvement Follow up to see if pt is following through with practicing strategies and if she is on the most apporpriate diet. Pt has not reported any coughing/choking episodes while eating at this time. Diet Recommendations Recommendations Continue Current Diet Liquids Order Thin Diet Order Regular Medication Recommendations As Tolerated Aspiration Precautions Recommended Precautions Upright at 90 Degrees Chin Tuck Effortful Swallow Treatment Plan Placement Recommendation after Discharge Home Appropriate for Continued Therapy Yes Dysphagia Goals Pt will tolerate least restricted diet and not show overt s/sx of aspiration while also fulfilling nutritional and hydration needs. Pt will follow through with swallow exercises to reduce aspiration risk. Follow Up Plan x1-x2
[2018-10-31] MEDS: TRAZODONE 100 MG TABLET PO (21:33)
--- NOTE | 2018-10-31 22:39 | PC.NURSE ---
1500- assumed care of pt from outgoing shift. PT awake. sitting in chair. just got back from procedure. md in later to speak with pt. pt reports she is ok to swallow. speech advanced pt to regular diet with thin liquids. Pt enjoyed dinner very much after not being able to eat real food for a while. pt has been cooperative with staff. ambulates steady gait in room. Pt calls when needing assistance. will continue to monitor pt for safety.
[2018-11-01] MEDS: AMPICILLIN/SULBACTAM 1.5 GM 1.5 GM in SODIUM CHLORIDE 0.9% 100 ML IV ×2 (01:37→08:30)
--- NOTE | 2018-11-01 04:26 | P.PN_ITS ---
Subjective Date Patient Seen: 10/31/18 Interval history: Luanne Carrasco is a 68-year-old female with a past medical history significant for hypertension, hyperlipidemia, anxiety, osteoarthritis, chronic lower extremity edema, and recurrent UTIs who presented to ED with fever and vomiting. She was found to be septic with a likely source of aspiration pneumonia, as well as fluid overloaded. She is being treated for pneumonia and diuresed. The patient is resting in bed comfortably. She is off oxygen and maintaining saturations in the mid 90's. She continues to report improvement in cough and no longer feels short of breath. She denies headache, chest pain, shortness of breath, abdominal pain, nausea, vomiting, fever, chills, dysuria, diarrhea or constipation. Discussed large multinodular thyroid goiter in depth and recommendations. Plan for U/S guided FNA biopsy today. She is voiding and eliminating without difficulty. She is up ambulating minimally without assistance. Ordered PT to assess. Exam Vital Signs (past 8 hours): - 10/31/18 20:29 10/31/18 22:11 Temperature 98.1 F Pulse Rate 79 Respiratory Rate 19 Blood Pressure 148/75 H Pulse Oximetry 95 Oxygen Delivery Method Room Air Oxygen Flow Rate 1 Narrative Exam Narrative: General: Middle aged morbidly obese female resting in bed comfortably, in no acute distress, well-developed, well-nourished, appropriately interactive. HEENT: Normocephalic, atraumatic. External ears without defect. Pupils equal, round, and reactive to light. Anicteric sclerae, moist conjunctivae, and no lid lag. Oropharynx free of erythema and cobble stoning with moist mucosa. Neck: Supple with full range of motion. No jugular venous distension. No lymphadenopathy. Fullness of left thyroid no appreciable nodule/mass appreciated. Cardiovascular: Regular rate and rhythm with no murmurs, rubs, or gallops appreciated Pulmonary: Clear to auscultation bilaterally with bibasilar rhonchi and fine crackles, improving. No wheezes. Normal respiratory effort with no use of accessory muscles. Abdomen: Soft, nontender, nondistended. No hepatosplenomegaly or masses appreciated. Extremities: No clubbing, cyanosis, or edema. Skin: Normal temperature, turgor, and texture; no rash, ulcers, or subcutaneous nodules appreciated. Neurological: Cranial nerves grossly intact. Psychiatric: Normal mood and affect. Alert and oriented to person, place, and time. Objective Labs Result Diagrams: 10/30/18 06:16 10/31/18 05:58 Labs: Laboratory Results - last 24 hr 10/31/18 10/31/18 10/31/18 05:58 05:58 05:58 Sodium 140 Potassium 3.5 Chloride 104 Carbon Dioxide 30 BUN 12 Creatinine 0.60 Estimated GFR > 60.0 BUN/Creatinine Ratio 20.0 Glucose 89 Calcium 9.2 Magnesium 2.0 Procalcitonin 1.33 H TSH 0.61 Free T4 10/31/18 05:58 Sodium Potassium Chloride Carbon Dioxide BUN Creatinine Estimated GFR BUN/Creatinine Ratio Glucose Calcium Magnesium Procalcitonin TSH Free T4 1.65 Assessment & Plan Assessment & Plan narrative: Luanne Carrasco is a 68-year-old female with a past medical history significant for hypertension, hyperlipidemia, anxiety, osteoarthritis, chronic lower extremity edema, and recurrent UTIs who presented to ED with fever and vomiting. She was found to be septic with a likely source of aspiration pneumonia, as well as fluid overloaded. She is being treated for pneumonia and diuresed. 1. Acute sepsis, present on admission. Resolved. -Patient met sepsis criteria including: Tachycardic (HR132), Febrile (Temp 103.6F), leukocytosis (WBC 20.7), and procalcitonin 0.96 with source being aspiration pneumonia. LA normal. UA negative. -Early goal directed therapy met including: IV fluids (gentle as patient may have fluid overload) and broad spectrum antibiotics. 2. Acute aspiration pneumonia, present on admission. Active. -Likely secondary to osteoarthritis with poor oropharyngeal swallow and silent aspiration (although not visualized on MBS) and possibly large multinodular thyroid goiter with mass effect on trachea. -Patient endorses occasional choking but no more than the average person. Denies dysphagia. -WBC and procalcitonin elevated at 20.7 and 0.96 respectively. WBC trended down to normal and procalcitonin trending down now 1.33 and will continue to monitor. -Consulted speech therapy for evaluation and treatment. MBS performed today demonstrated abnormal oropharyngeal swallow without layngeal penetration. -Chest x-ray demonstrated left basilar pulmonary radiopacity suspicious for aspiration/infection, as well as, diffuse interstitial opacities associated with fluid overload. -CTA PE performed due to D-dimer elevation of 599, which demonstrated multinodular thyromegaly extending into mediastinum, extensive bilateral interstitial infiltrates, septal thickening and small pleural effusions, questionable infrahilar consolidation in the right lower lobe. No PE was found in the pulmonary arteries, however subsegmental branches were and completely visualized. -Patient received 3 L IV resuscitation in ED with developing pleural effusions. Stopped IV fluids today with NS at 50 mL/hr which was being given for gentle hydration in setting of sepsis as above. -Complete pneumonia work-up ordered including: Respiratory viral PCR negative. Sputum not collected as patient has a non-productive cough. Blood cultures have no growth to date. -Continue Unasyn 1.5 mg every 6 hours to treat aspiration pneumonia, specificall y anarobes. 3. Acute hypoxemic respiratory failure, present on admission. Resolving. -Secondary to aspiration pneumonia and possibly fluid overload. -Chest x-ray and CT findings as above. -Continue Bumex 0.5 mg IV every 8 hours to treat fluid overload as below and Unasyn as above to treat aspiration pneumonia. -Continue supplemental oxygen as needed and titrate off as tolerated. Oxygen saturation goal 88%. 4. Probable fluid overload, present on admission. Resolving. -Patient presented with shortness of breath and hypoxemic respiratory failure. No history of CHF. -Likely secondary IV fluids and aspiration pneumonia. CHF ruled out. -Chest x-ray and CTA demonstrated small bilateral pleural effusions and mild pulmonary edema. -Echocardiogram demonstrated preserved LV function with EF 55-60%, mild dilated LV and RV and moderately dilated bilateral atria. No significant valvular disease. Due to echo and thyroid findings will inquire about MALGORZATA. -Continue daily weights and strict I/O. -Discontinued Bumex 0.5 mg IV every 8 hours after today and restart home antihypertensives/diuretics tomorrow. 5. Large multinodular thyroid goiter with mass effect, chronic, present on admission. Active. -CTA incidentally demonstrated multinodular thyromegalywith mass effect on trachea with right-bangura deviation and substernal extension. -Discussed with radiology and will pursue thyroid U/S with FNA biopsy if possible based on patient's body habitus. Also discussed with general surgery who recommends elective thyroidectomy partial vs. total at tertiary center as patient may need sternotomy. -TSH and free T4 within normal limits. 6. Essential hypertension, chronic, present on admission. Stable. -Blood pressure is stable. -Discontinued Bumex 0.5 mg IV every 8 hours after today and restart home antihypertensives/diuretics tomorrow. -Continue to monitor blood pressure closely. 7. Depression, chronic, present on admission. Stable. -Continue trazodone 100 mg at bedtime and citalopram 10 mg daily. Disposition: Patient will likely discharge home possibly tomorrow. Quality VTE Deep Vein Thrombosis/Pulmonary Embolism Present on Admission: No
[2018-11-01 06:00] VITALS: BP 128/58; PULSE 77; RESP 16; TEMP 36.4
[2018-11-01] MEDS: HEPARIN 5,000 UNIT/ML VIAL 5000 UNIT SUBCUT (06:24)
[2018-11-01] MEDS: PHENAZOPYRIDINE 100 MG TABLET 200 MG PO (08:34)
[2018-11-01] MEDS: CITALOPRAM 10 MG TABLET PO (08:34)
[2018-11-01 09:00] VITALS: BP 137/68; PULSE 74; RESP 16; TEMP 36.8; O2SAT 96
[2018-11-01 09:05] LABS: Hematocrit 35.7 % (36-46); Hemoglobin 11.9 g/dL (12.0-16.0); Mean Corpuscular HGB Conc 33.4 % (30-36); Mean Corpuscular Hemoglobin 29.5 PG (26-34); Mean Corpuscular Volume 88.3 fL (80-100); Platelet Count 257 X10^3/uL (150-400); Red Blood Cell Count 4.04 X10^6/uL (4.0-5.2); Red Cell Distribution Width 14.4 % (11.6-14.8); White Blood Cell Count 6.9 X10^3/uL (4.5-11.0)
[2018-11-01 09:06] LABS: Add Manual Diff / Slide Review YES
[2018-11-01 09:38] LABS: Morphology Comment Normal Morphology; Neutrophils Absolute Manual 2484 /uL (3000-5900); Total Cells Counted 100
[2018-11-01] MEDS: TRIAMTERENE/HCTZ 37.5/25 TABLET 1 CAP PO (09:49)
[2018-11-01 09:54] LABS: BUN Creatinine Ratio 23.3 (6-22); Blood Urea Nitrogen 14 mg/dL (7-17); Calcium 9.5 mg/dL (8.4-10.2); Carbon Dioxide 30 mmol/L (22-32); Chloride 102 mmol/L (98-107); Estimated Glomerular Filt Rate > 60.0 mL/min (>60); Glucose 102 mg/dL (80-110); HEMOLYSIS < 15 (0-50); Potassium 3.4 mmol/L (3.4-5.1); Sodium 138 mmol/L (137-145)
[2018-11-01 10:26] LABS: Procalcitonin 0.62 ng/mL (<0.5)
--- NOTE | 2018-11-01 10:50 | RT ---
Dr. You requested that Ms. Carrasco be walked to assess the need for home oxygen. She is currently with speech therapy. Speech indicated they would be done in about 10 minutes. I will check back with her around 1100 am.
--- NOTE | 2018-11-01 10:56 | P.DS_ITS ---
History of Present Illness Date Patient Seen: 10/28/18 Chief complaint: FEVER THROWING UP Narrative: Written by David OCONNELL: The patient is a 68-year-old female who presented to the ED on 10/28/2018 out of concern for persistent fever and rigors. Symptoms started early in the morning on day of ED presentation. A day prior, patient was experiencing dysuria and foul-smelling urine, consequently she was started on her 3rd oral antibiotic course. Associated symptoms include headache, malaise, non-productive cough, wheezing, exertional dyspnea (recent), chest discomfort (recent), dizziness (w/ position change), nausea and vomiting (x4 episodes). Denies suprapubic tenderness, diarrhea, pleurisy, and syncopal events. Reports new onset of mid-sternal chest discomfort without radiation to the extremities, neck or jaw. She has baseline paresthesia of BUE. Reports an episode of self resolved viral illness one month ago. Episode was characterized by generalized weakness, generalized body rash, and temperature of 103? point. Denies sx of overt rhinitis or sinusitis. She is not O2 dependent at baseline. No prior h/o of PE or DVT. Denies unilateral edema and LE pain at rest or with ambulation. Patient has a pending C3-T1 anterior cervical diskectomy and fusion scheduled for 11/08/2018. PMH: HTN, HLD, impaired fasting glucose, obesity, chronic neck and left shoulder pain, osteoarthritis, PUD, anxiety, former smoker (30 PYH, quit 1998), chronic NSAID use, allergic rhinitis, cervical stenosis of spine, cervical cord compression with myelopathy, and morbid obesity (BMI 51.6). PSH: Knee replacement surgery (2013), NM stress test (07/2018), left TKA (), colonoscopy (negative, 10/2018), and hysterectomy (ovaries present, 1984) ED presentation, work-up VS: T 103.6 BP 127/68 mmHg HR 132 RR 22 SpO2 91% on room air. GCS 15 WBC 20.7 HGB 13.6 HCT 40.9 PLT 257 Lactate 1.7 PCT 0.96 NA 134 K 3.6 CL 101 CA 9.8 ALB 3.9 GLU 161 CO2 22 BUN 18 CR 0.8 BUN:CR 22.5 T.BILI 1.3 AST 24 ALT 23 ALK PHOS 95 Influenza, negative. UA revealed WBC 1-5 HPF, squamous epithelial cells 10-30 HPF, amorphous sediment 1+, bacteria 2-10 HPF, mucus 1+ CXR revealed a left basilar pulmonary radiopacities suspicious for aspiration / infection; heart size is normal; mediastinal contours appear normal. In the ED received a total of 2 L of NS for fluid resuscitation. Tylenol 650 mg x1 for headache. Blood cultures x2 collected, pending. Discharge Providers Date of admission: 10/28/18 21:06 Discharge Date: 11/01/18 Consults: 10/29/18 00:11 Consult to Speech Therapy Evaluate & Treat Comment: Swallow evaluation Physician Instructions: Evaluate and treat 10/29/18 07:19 Consult to Speech Therapy Evaluate & Treat Comment: swallow evaluation, concern for aspiration Physician Instructions: Evaluate and treat 10/30/18 22:53 Consult to Physical Therapy Evaluate & Treat Comment: Physician Instructions: Evaluate and Treat Discharge provider: Margarita You DO Summary Discharge Diagnosis: 1. Acute sepsis, present on admission. Resolved. 2. Acute aspiration pneumonia, present on admission. Resolving. 3. Acute hypoxemic respiratory failure, present on admission. Resolving. 4. Probable fluid overload, present on admission. Resolved. 5. Large multinodular thyroid goiter with mass effect, chronic, present on admission. Active. 6. Essential hypertension, chronic, present on admission. Stable. 7. Depression, chronic, present on admission. Stable. 8. Morbid obesity, chronic, present on admission. Stable. Hospital Course: Luanne Carrasco is a 68-year-old female with a past medical history significant for hypertension, hyperlipidemia, anxiety, osteoarthritis, chronic lower extremity edema, and recurrent UTIs who presented to ED with fever and vomiting. She was found to be septic with a likely source of aspiration pneumonia, as well as fluid overloaded. She is being treated for pneumonia and diuresed. 1. Acute sepsis, present on admission. Resolved. -Patient met sepsis criteria including: Tachycardic (HR132), Febrile (Temp 103.6F), leukocytosis (WBC 20.7), and procalcitonin 0.96 with source being aspiration pneumonia. LA normal. UA negative. -Early goal directed therapy met including: IV fluids (gentle as patient may have fluid overload) and broad spectrum antibiotics. 2. Acute aspiration pneumonia, present on admission. Resolving. -Likely secondary to osteoarthritis with poor oropharyngeal swallow and silent aspiration (although not visualized on MBS) and possibly large multinodular thyroid goiter with mass effect on trachea. -Patient endorses occasional choking but no more than the average person. Denies dysphagia. -WBC and procalcitonin elevated at 20.7 and 0.96 respectively. WBC trended down to normal and procalcitonin trending down now 1.33 and will continue to monitor. -Consulted speech therapy for evaluation and treatment. MBS performed today demonstrated abnormal oropharyngeal swallow without layngeal penetration. Recommended outpatient speech therapy. -Chest x-ray demonstrated left basilar pulmonary radiopacity suspicious for aspiration/infection, as well as, diffuse interstitial opacities associated with fluid overload. -CTA PE performed due to D-dimer elevation of 599, which demonstrated multinodular thyromegaly extending into mediastinum, extensive bilateral interstitial infiltrates, septal thickening and small pleural effusions, questionable infrahilar consolidation in the right lower lobe. No PE was found in the pulmonary arteries, however subsegmental branches were and completely visualized. -Patient received 3 L IV resuscitation in ED with developing pleural effusions. Stopped IV fluids today with NS at 50 mL/hr which was being given for gentle hydration in setting of sepsis as above. -Complete pneumonia work-up ordered including: Respiratory viral PCR negative. Sputum not collected as patient has a non-productive cough. Blood cultures have no growth to date. -Continued Unasyn 1.5 mg every 6 hours to treat aspiration pneumonia, specifically anarobes and transition to oral Augmentin 500 mg twice daily for 7 days to complete 10 day course total. 3. Acute hypoxemic respiratory failure, present on admission. Resolving. -Secondary to aspiration pneumonia and possibly fluid overload. -Chest x-ray and CT findings as above. -Continued Bumex 0.5 mg IV every 8 hours to treat fluid overload as below and Unasyn as above to treat aspiration pneumonia. -Continued supplemental oxygen as needed and titrated off as tolerated. Oxygen saturation goal 88%. No longer desatting and no need for home O2. 4. Probable fluid overload, present on admission. Resolved. -Patient presented with shortness of breath and hypoxemic respiratory failure. No history of CHF. -Likely secondary IV fluids and aspiration pneumonia. CHF ruled out. -Chest x-ray and CTA demonstrated small bilateral pleural effusions and mild pulmonary edema. -Echocardiogram demonstrated preserved LV function with EF 55-60%, mild dilated LV and RV and moderately dilated bilateral atria. No significant valvular disease. Due to echo and thyroid findings inquired regarding MALGORZATA and patient reports she does snore. Due to patient's body habitus, underlying osteoarthritis, and large multinodular thyroid goiter with mass effect on trachea and substernal extension recommend outpatient sleep study for probable MALGORZATA. -Continued daily weights and strict I/O. -Discontinued Bumex 0.5 mg IV every 8 hours after today and restarted home antihypertensives/diuretics. 5. Large multinodular thyroid goiter with mass effect, chronic, present on admission. Active. -CTA incidentally demonstrated multinodular thyromegalywith mass effect on trachea with right-bangura deviation and substernal extension. -Discussed with radiologist, Dr. Brandie Vegas, who performed a thyroid U/S with FNA biopsy with results pending and PCP to follow. Also discussed with general surgery who recommends elective thyroidectomy (partial vs. total) at tertiary center as patient may need sternotomy. -TSH and free T4 within normal limits. 6. Essential hypertension, chronic, present on admission. Stable. -Blood pressure is stable. -Discontinued Bumex 0.5 mg IV every 8 hours after today and restarted home antihypertensives/diuretics at time of discharge. -Continued to monitor blood pressure closely. 7. Depression, chronic, present on admission. Stable. -Continued trazodone 100 mg at bedtime and citalopram 10 mg daily. 8. Morbid obesity, chronic, present on admission. Stable. -BMI 53.1. -Discussed and encouraged lifestyle modification including diet and exercise. Status at Discharge Functional status at discharge: independent ambulation Overall status at discharge: patient is progressing back to baseline Exam Vital Signs (past 8 hours): - 11/01/18 06:00 11/01/18 09:00 Temperature 97.6 F 98.3 F Pulse Rate 77 74 Respiratory Rate 16 16 Blood Pressure 128/58 L 137/68 Pulse Oximetry 96 Oxygen Delivery Method Room Air Oxygen Flow Rate 0 Narrative Exam Narrative: General: Middle aged morbidly obese female resting in bed comfortably, in no acute distress, well-developed, well-nourished, appropriately interactive. HEENT: Normocephalic, atraumatic. External ears without defect. Pupils equal, round, and reactive to light. Anicteric sclerae, moist conjunctivae, and no lid lag. Oropharynx free of erythema and cobble stoning with moist mucosa. Neck: Supple with full range of motion. No jugular venous distension. No lymphadenopathy. Fullness of left thyroid no appreciable nodule/mass appreciated. Cardiovascular: Regular rate and rhythm with no murmurs, rubs, or gallops appreciated Pulmonary: Clear to auscultation bilaterally with bibasilar occasional rhonchi. No crackles or wheezes. Normal respiratory effort with no use of accessory muscles. Abdomen: Soft, nontender, nondistended. No hepatosplenomegaly or masses appreciated. Extremities: No clubbing or cyanosis. Trace bipedal edema. Skin: Normal temperature, turgor, and texture; no rash, ulcers, or subcutaneous nodules appreciated. Neurological: Cranial nerves grossly intact. Psychiatric: Normal mood and affect. Alert and oriented to person, place, and time. Objective Labs Result Diagrams: 11/01/18 08:00 11/01/18 08:00 Labs: Laboratory Results - last 24 hr 10/31/18 11/01/18 11/01/18 05:58 08:00 08:00 WBC 6.9 RBC 4.04 Hgb 11.9 L Hct 35.7 L MCV 88.3 MCH 29.5 MCHC 33.4 RDW 14.4 Plt Count 257 Neut % (Auto) Not Reportable Lymph % (Auto) Not Reportable [place] % (Auto) Not Reportable Eos % (Auto) Not Reportable Baso % (Auto) Not Reportable Lymph # (Auto) Not Reportable [place] # (Auto) Not Reportable Baso # (Auto) Not Reportable Total Counted 100 Seg Neutrophils % 36.0 L Lymphocytes % (Manual) 35.0 Atypical Lymphs % 2.0 H Monocytes % (Manual) 6.0 Eosinophils % (Manual) 20.0 H Basophils % (Manual) 1.0 Neutrophils # (Manual) 2484 L Differential Comment Normal morphology RBC Morphology Not Reportable Sodium Potassium Chloride Carbon Dioxide BUN Creatinine Estimated GFR BUN/Creatinine Ratio Glucose Calcium Procalcitonin 0.62 H Free T4 1.65 11/01/18 08:00 WBC RBC Hgb Hct MCV MCH MCHC RDW Plt Count Neut % (Auto) Lymph % (Auto) [place] % (Auto) Eos % (Auto) Baso % (Auto) Lymph # (Auto) [place] # (Auto) Baso # (Auto) Total Counted Seg Neutrophils % Lymphocytes % (Manual) Atypical Lymphs % Monocytes % (Manual) Eosinophils % (Manual) Basophils % (Manual) Neutrophils # (Manual) Differential Comment RBC Morphology Sodium 138 Potassium 3.4 Chloride 102 Carbon Dioxide 30 BUN 14 Creatinine 0.60 Estimated GFR > 60.0 BUN/Creatinine Ratio 23.3 H Glucose 102 Calcium 9.5 Procalcitonin Free T4 Discharge Plan Discharge Plan Patient Disposition: Home Discharge comment: You are being discharged home. Please follow-up with your PCP, Dr. Morales, in the next 1-2 weeks regarding your hospitalization. Recom mend referral to General and thoracic surgery for thyroidectomy (thyroid removal). Your thyroid biopsy is pending and results should be back in 5-7 days for your PCP to follow. Recommend outpatient sleep study to evaluate for possible obstructive sleep apnea. Recommend continued speech therapy for improvement and swallow. Please implement lifestyle changes including: diet and exercise as discussed. The [employer] [place] [employer] recommends 150 minutes of moderate intensity cardiovascular exercise per week. Due to your arthritis and limitations start with small obtainable goals and work your way up. You were provided a diet handout on meta training in diet and taught the hand rule. Discharge Med Rec/Prescriptions Prescriptions: New cephalexin [Keflex] 500 mg capsule 500 mg PO BID Qty: 14 RF: 0 Continued trazodone 50 mg Tablet 100 mg PO BEDTIME RF: 0 citalopram 10 mg Tablet 10 mg PO DAILY RF: 0 triamterene-hydrochlorothiazid 37.5-25 mg Capsule 1 cap PO DAILY RF: 0 lisinopril 10 mg Tablet 10 mg PO BEDTIME RF: 0 loratadine [Claritin] 10 mg Tablet 10 mg PO BEDTIME PRN (Reason: seasonal allergies) RF: 0 Follow up/Referrals: Minnie Morales MD [Non-Staff] - 1 Week Provider Discharge Instructions Diet: Carb-consistent/Diabetic, Low-fat, Low-sodium and Low-cholesterol Activity: Activity as tolerated Visit Report/Discharge Packet Instructions: The Mediterranean Diet and Good Health, DI for Pneumonia -- Adult, DI for Needle Biopsy: Thyroid, DI for Urinary Tract Infection (UTI), DI for Obstructive Sleep Apnea -- Adult, Cephalexin (By mouth) Discharge Data Attending Provider: David Buckley Admit Date/Time: 10/28/18 21:06 Quality VTE Deep Vein Thrombosis/Pulmonary Embolism Present on Admission: No
--- NOTE | 2018-11-01 11:06 | PC.NURSE ---
Addendum entered by Marcela Pool R.N. 11/01/18 14:19: DC - Dr. You requested ambul RA with RT and pt sat did remain greater 90%, some incr sob w/activity, when ret to chair, sat remained 94% ra, per MD, will dc home, reviewed dc instructions with patient, paper work provided, scripts sent electronically to [facility], belongings gathered, including cell phone and [employer] worker, glasses, clothing, pt did not have shoes with her, assisted to WC and escorted to spouse's car. SL and tele dc'd. Original Note: AM NOTE - pt is alert, kristian breakfast, reports some coughing during night with occassional clear sputum, using the flutter valve, 02 sat 94% ra, no pain, after meal dsg base throat removed, small needle insertion site w/o redness or drainage.
[2018-11-01 12:00] VITALS: BP 145/73; PULSE 73; RESP 16; TEMP 36.7; O2SAT 96
== END 2018-11-01 14:00 | disposition home or self-care (01) | DRG 871 ==
LOC: ED 18:46 → AC 21:13
PROVIDERS: Internal Medicine; Admitting Provider Nurse Practitioner Gerontology; Emergency Provider Emergency Medicine; Family Provider Orthopaedic Surgery; Visit Provider Nurse Practitioner Gerontology
DX: A41.9 Sepsis, unspecified organism (principal); J96.01 Acute respiratory failure with hypoxia; J69.0 Pneumonitis due to inhalation of food and vomit; E87.2 Acidosis; Z68.43 Body mass index [BMI] 50.0-59.9, adult; E86.9 Volume depletion, unspecified; E66.01 Morbid (severe) obesity due to excess calories; E04.2 Nontoxic multinodular goiter; R65.20 Severe sepsis without septic shock; I10 Essential (primary) hypertension; F32.9 Major depressive disorder, single episode, unspecified; E87.70 Fluid overload, unspecified
CPT/HCPCS: 10005; 36415; 36591; 71045; 71275; 74230; 76536; 80048; 80053; 81003; 81015; 83605; 83735; 83880; 84145; 84439; 84443; 84484; 85025; 85379; 87040; 87400; 87633; 92526; 92610; 92611; 93005; 94618; 94640; 94760; 94762; 96361; 96365; 97110; 97161; 99283; 99284; C8929; J0295; J1644; J2405; J3480; J7613; Q9957; Q9967

== ENCOUNTER 2018-11-24 14:06 | Emergency (ER) | payer MEDICARE, SELFPAY ==
[2018-11-24] VITALS (9 sets, daily range): BP systolic 110–116; BP diastolic 30–50; PULSE 84–105; RESP 16–20; TEMP 37.7–39.8; O2SAT 94–97; BMI 54.1
--- NOTE | 2018-11-24 14:34 | DI.RAD.S_ITS ---
PROCEDURE: XR CHEST 2V INDICATIONS: shortness of breath TECHNIQUE: 2 views of the chest were acquired. COMPARISON: [facility], CR, XR CHEST 2 VIEWS, 11/18/2018, 11:45. FINDINGS: Surgical changes and devices: None. Lungs and pleura: Lungs are clear. No pleural effusions or pneumothorax. Mediastinum: Mediastinal contours are normal. Heart size is normal. Bones and chest wall: No suspicious bony abnormalities. Soft tissues appear unremarkable. IMPRESSION: No acute process. Dictated by: Charlie Beckett M.D. on 11/24/2018 at 14:55 Approved by: Charlie Beckett M.D. on 11/24/2018 at 14:56
--- NOTE | 2018-11-24 15:05 | ED_ITS ---
HPI - SOB/Dyspnea <Yanira MckennaCHUYP - Last Filed: 11/24/18 23:06> General Chief Complaint: Shortness of Breath/Dyspnea Stated Complaint: states aspirating pneumonia is back Time Seen by Provider: 11/24/18 14:58 Source: patient Mode of arrival: ambulatory Limitations: no limitations History of Present Illness Patient is a 68-year-old female past medical history of dysphagia and is currently in speech therapy for this. She presents to the emergency department today complaining of shortness of breath, cough and fever starting last night at 3:00 a.m.. She feels like she has pneumonia, as around October 26 the the same thing happen with a very similar presentation and was told she had aspiration pneumonia. She said she choked on a few pieces of food a few days ago, and has been coughing since. States her cough is productive and contains white foam. She said she took Tylenol today around 11:00 a.m., 2 tabs of regular strength APAP. Associated slight frontal headache, and chest soreness when she coughs. Denies syncope, nausea, vomiting, diarrhea, dysuria, abdominal pain. MD Complaint: shortness of breath and cough Onset (ago): hour(s) Context: other (aspiration) Severity: mild Consistency/Duration: constant Exacerbating factors: nothing Known history of: aspiration pneumonia Associated symptoms: fever, cough and wheezing Related Data Home Medications Medication Instructions Recorded Confirmed lisinopril 10 mg PO BEDTIME 09/30/18 11/24/18 loratadine [Claritin] 10 mg PO BEDTIME PRN 09/30/18 11/24/18 trazodone 100 mg PO BEDTIME 09/30/18 11/24/18 triamterene-hydrochlorothiazid 1 cap PO DAILY 09/30/18 11/24/18 albuterol sulfate 2 puff INHALATION Q4H PRN 11/24/18 11/24/18 citalopram 20 mg PO DAILY 11/24/18 11/24/18 nitrofurantoin monohyd/m-cryst 100 mg PO BID 11/24/18 11/24/18 Previous Rx's Medication Instructions Recorded amoxicillin-pot clavulanate 1 tab PO BID 10 Days #20 tab 11/24/18 Allergies Allergy/AdvReac Type Severity Reaction Status Date / Time No Known Drug Allergies Allergy Verified 11/24/18 14:09 Review of Systems <ANISH Infante - Last Filed: 11/24/18 23:06> Review of Systems REVIEW OF SYSTEMS: GENERAL: Complains of fever, see HPI. HENT: No head trauma, hearing loss, rhinorrhea, epistaxis, sinus pressure, sore throat, or dysphagia. EYES: No loss of vision, double vision, eye pain, or irritation. CARDIOVASCULAR: No chest pain, palpitations, edema, syncope, or orthopnea. RESPIRATORY: See HPI, complaints of shortness of breath. GASTROINTESTINAL: No change in appetite, nausea, vomiting, stool changes, or елена abdias. GENITOURINARY: No flank pain, urinary incontinence, hesitancy, frequency, or dysuria. No vaginal discharge or dyspareunia. MUSCULOSKELETAL: No pain, weakness, or deformities. INTEGUMENTARY: No rash, lesions, or pruritus. NEURO: No numbness, tingling, memory loss, confusion, or headaches. PSYCH: No behavior or mood changes. ENDOCRINOLOGY: No hair loss of temperature intolerance. HEMATOLOGY: No easy bruising. LYMPHATIC: No lymphadenopathy. PFSH <ANISH Infante - Last Filed: 11/24/18 23:06> Medical History Anxiety (Acute) Arthritis (Acute) Edema (Acute) Former smoker (Acute) Gout (Acute) HLD (hyperlipidemia) (Acute) HTN (hypertension) (Acute) Hearing impaired (Acute) Osteoarthritis (Acute) Pre-diabetes (Acute) UTI (urinary tract infection) (Acute ~08/2018) Surgical History History of 2 sections (Acute) History of arthroplasty of left knee (Acute 03/19/14) History of arthroplasty of right knee (Acute 10/23/13) History of colonoscopy (Acute ~10/2014) History of partial hysterectomy (Acute ~1983) Hx of appendectomy (Acute) Hx of tonsillectomy (Acute) Status post bilateral LASIK surgery (Acute) Social History household members: spouse Smoking Status: Former smoker alcohol intake: current Social History household members: spouse Smoking Status: Former smoker alcohol intake: current Exam <ANISH Infante - Last Filed: 11/24/18 23:06> Initial Vital Signs Initial Vital Signs: Vital Signs Temperature 103.7 F H 11/24/18 14:09 Pulse Rate 105 H 11/24/18 14:09 Respiratory Rate 16 11/24/18 14:09 Blood Pressure 116/30 L 11/24/18 14:09 Pulse Oximetry 94 11/24/18 14:09 PHYSICAL EXAMINATION: GENERAL: Well groomed, alert, and cooperative Answers questions promptly and appropriately. Vital signs noted. Patient appears flushed. HENT: Normocephalic, atraumatic. Ear canals patent, tympanic membranes normal without irritation or effusion, crisp light reflex present. Oral mucosa is pink and moist, no caries or lesions present. Pharynx without erythema. EYES: PERRLA, EOMIs, conjunctiva pink, sclera white, no periorbital swelling. NECK: Full range of motion, nontender. LYMPH: No lymphadenopathy. CHEST: Normal to inspection and without deformities. CARDIOVASCULAR: S1 and S2 sounds normal. Regular rate and rhythm, no murmurs, clicks, or bruits. No pedal edema. RESPIRATORY: Normal respiratory rate, trachea midline, airway patent. No stridor, nasal flaring or accessory muscle use. Diffuse wheezes heard throughout all lung frazier. Wheezes decreased after nebulizer treatment and course breath sounds were heard to right side. No crackles noted. GASTROINTESTINAL: Bowel sounds normoactive. Abdomen is soft and non-tender. No organomegaly. MUSCULOSKELETAL: Normal gait and coordination. Equal tone and mass bilaterally. No spinal tenderness or deformities. EXTREMITIES: CMS intact. Full range of motion and 5/5 strength to upper and lower extremities SKIN: Warm, dry, soft, appropriate color for ethnicity. No lesions, rashes, or wounds. NEURO: Alert and Oriented X 3. CN III-XII intact. Good coordination. No ataxia, or sensory deficits, or cognitive issues. PSYCH: Appropriate affect and mood. <Pia Jackson MD - Last Filed: 11/28/18 07:08> Initial Vital Signs Initial Vital Signs: Vital Signs Temperature 103.7 F H 11/24/18 14:09 Pulse Rate 105 H 11/24/18 14:09 Respiratory Rate 16 11/24/18 14:09 Blood Pressure 116/30 L 11/24/18 14:09 Pulse Oximetry 94 11/24/18 14:09 Scores <ANISH Infante - Last Filed: 11/24/18 23:06> MIQUEL Confusion: No BUN >19mg/dL (>7mmol/L): No Respiratory rate greater or equal to 30: No SBP <90mmHg or DBP less or equal to 60mmHg: No Age 65 or Older: Yes ESTUARDO-Yara Total: 1 Score 0-1 Outpatient care, Score 2 Inpt vs. Obs, Score 3 or over Inpt admit with ICU for score of 4-5 Course <ANISH Infante - Last Filed: 11/24/18 23:06> Orders Ordered: Discontinued Medications Acetaminophen (Tylenol) 975 mg PO NOW ONE Stop: 11/24/18 18:18 Last Admin: 11/24/18 18:28 Dose: 975 mg Albuterol (Ventolin) 2.5 mg INH NOW ONE Stop: 11/24/18 18:18 Last Admin: 11/24/18 18:46 Dose: 2.5 mg Albuterol/Ipratropium (Duoneb) 3 ml INH NOW ONE Stop: 11/24/18 15:20 Last Admin: 11/24/18 15:24 Dose: 3 ml Sodium Chloride (Normal Saline 0.9%) 1,000 mls @ 500 mls/hr IV BOLUS ONE Stop: 11/24/18 18:35 Last Infusion: 11/24/18 19:46 Dose: 0 mls/hr Admin: 11/24/18 17:07 Dose: 500 mls/hr Ampicillin Sodium/Sulbactam (Sodium 3 gm/ Sodium Chloride) 100 mls @ 100 mls/hr IV NOW ONE Stop: 11/24/18 17:39 Last Infusion: 11/24/18 19:02 Dose: 0 mls/hr Admin: 11/24/18 17:47 Dose: 100 mls/hr Reevaluation(s) Reevaluation #1: Patient re-evaluated after DuoNeb treatment, wheezing resolved. Vital Signs - 8 hr 11/24/18 15:29 11/24/18 16:00 11/24/18 17:30 Temperature Pulse Rate 84 90 86 Respiratory Rate 16 18 20 Blood Pressure [Left Wrist] 113/50 L 110/49 L Pulse Oximetry 94 97 94 11/24/18 18:28 11/24/18 18:29 11/24/18 18:50 Temperature 100.1 F H 100.1 F H Pulse Rate 84 Respiratory Rate 20 Blood Pressure [Left Wrist] Pulse Oximetry 97 11/24/18 19:02 11/24/18 19:03 Temperature 99.8 F H 99.8 F H Pulse Rate Respiratory Rate Blood Pressure [Left Wrist] Pulse Oximetry <Pia Jackson MD - Last Filed: 11/28/18 07:08> Orders Ordered: Discontinued Medications Acetaminophen (Tylenol) 975 mg PO NOW ONE Stop: 11/24/18 18:18 Last Admin: 11/24/18 18:28 Dose: 975 mg Albuterol (Ventolin) 2.5 mg INH NOW ONE Stop: 11/24/18 18:18 Last Admin: 11/24/18 18:46 Dose: 2.5 mg Albuterol/Ipratropium (Duoneb) 3 ml INH NOW ONE Stop: 11/24/18 15:20 Last Admin: 11/24/18 15:24 Dose: 3 ml Sodium Chloride (Normal Saline 0.9%) 1,000 mls @ 500 mls/hr IV BOLUS ONE Stop: 11/24/18 18:35 Last Infusion: 11/24/18 19:46 Dose: 0 mls/hr Admin: 11/24/18 17:07 Dose: 500 mls/hr Ampicillin Sodium/Sulbactam (Sodium 3 gm/ Sodium Chloride) 100 mls @ 100 mls/hr IV NOW ONE Stop: 11/24/18 17:39 Last Infusion: 11/24/18 19:02 Dose: 0 mls/hr Admin: 11/24/18 17:47 Dose: 100 mls/hr Vital Signs - 8 hr 11/24/18 15:29 11/24/18 16:00 11/24/18 17:30 Temperature Pulse Rate 84 90 86 Respiratory Rate 16 18 20 Blood Pressure [Left Wrist] 113/50 L 110/49 L Pulse Oximetry 94 97 94 11/24/18 18:28 11/24/18 18:29 11/24/18 18:50 Temperature 100.1 F H 100.1 F H Pulse Rate 84 Respiratory Rate 20 Blood Pressure [Left Wrist] Pulse Oximetry 97 11/24/18 19:02 11/24/18 19:03 Temperature 99.8 F H 99.8 F H Pulse Rate Respiratory Rate Blood Pressure [Left Wrist] Pulse Oximetry MDM - SOB/Dyspnea <ANISH Infante - Last Filed: 11/24/18 23:06> Medical Records Attestation: I reviewed the patient's medical records. Lab Data Attestation: I reviewed the patient's lab results. Result diagrams: 11/24/18 15:02 11/24/18 15:02 Lab Results 11/24/18 11/24/18 11/24/18 Range/Units 15:02 15:02 15:02 WBC 16.3 H (4.5-11.0) X10^3/uL RBC 4.11 (4.0-5.2) X10^6/uL Hgb 12.2 (12.0-16.0) g/dL Hct 36.3 (36-46) % MCV 88.4 (80-100) fL MCH 29.7 (26-34) PG MCHC 33.6 (30-36) % RDW 15.1 H (11.6-14.8) % Plt Count 235 (150-400) X10^3/uL Neut % (Auto) 91.5 H (50-75) % Lymph % (Auto) 2.4 L (25-40) % Garvin % (Auto) 4.7 (3-14) % Eos % (Auto) 1.2 L (2-4) % Baso % (Auto) 0.2 (0-2) % Neut # (Auto) 59866 H (7335-3897) /uL Lymph # (Auto) 400 L (8400-0831) /uL Garvin # (Auto) 800 (0-900) /uL Eos # (Auto) 200 (0-450) /uL Baso # (Auto) 0 (0-100) /uL Sodium 138 (137-145) mmol/L Potassium 4.0 (3.4-5.1) mmol/L Chloride 104 (98-107) mmol/L Carbon Dioxide 26 (22-32) mmol/L BUN 14 (7-17) mg/dL Creatinine 0.70 (0.52-1.04) mg/dL Estimated GFR > 60.0 (>60) mL/min BUN/Creatinine Ratio 20.0 (6-22) Glucose 125 H (80-110) mg/dL Lactate 1.8 (0.7-2.1) mmol/L Calcium 9.8 (8.4-10.2) mg/dL Total Bilirubin 1.2 (0.2-1.3) mg/dL AST 20 (14-36) IU/L ALT 16 (9-52) IU/L Alkaline Phosphatase 86 (38-126) U/L Total Protein 6.6 (6.3-8.2) g/dL Albumin 3.6 (3.5-5.0) g/dL Globulin 3.0 (1.7-4.1) g/dL Albumin/Globulin Ratio 1.2 (1.0-2.8) Influenza A & B (PCR) (Negative) 11/24/18 Range/Units 17:10 WBC (4.5-11.0) X10^3/uL RBC (4.0-5.2) X10^6/uL Hgb (12.0-16.0) g/dL Hct (36-46) % MCV (80-100) fL MCH (26-34) PG MCHC (30-36) % RDW (11.6-14.8) % Plt Count (150-400) X10^3/uL Neut % (Auto) (50-75) % Lymph % (Auto) (25-40) % Garvin % (Auto) (3-14) % Eos % (Auto) (2-4) % Baso % (Auto) (0-2) % Neut # (Auto) (9597-9259) /uL Lymph # (Auto) (5135-1760) /uL Garvin # (Auto) (0-900) /uL Eos # (Auto) (0-450) /uL Baso # (Auto) (0-100) /uL Sodium (137-145) mmol/L Potassium (3.4-5.1) mmol/L Chloride (98-107) mmol/L Carbon Dioxide (22-32) mmol/L BUN (7-17) mg/dL Creatinine (0.52-1.04) mg/dL Estimated GFR (>60) mL/min BUN/Creatinine Ratio (6-22) Glucose (80-110) mg/dL Lactate (0.7-2.1) mmol/L Calcium (8.4-10.2) mg/dL Total Bilirubin (0.2-1.3) mg/dL AST (14-36) IU/L ALT (9-52) IU/L Alkaline Phosphatase (38-126) U/L Total Protein (6.3-8.2) g/dL Albumin (3.5-5.0) g/dL Globulin (1.7-4.1) g/dL Albumin/Globulin Ratio (1.0-2.8) Influenza A & B (PCR) Negative (Negative) Imaging Data Chest x-ray: Radiologist's impression: [address] [address] XRay Report Signed Patient: Luanne Carrasco#: [id number] : 2Acct:[id number] Age/Sex: 68 / FDate of Service: 11/24/18 Loc: ED Accession Number: [id number] Procedure: XR chest 2V Ordering Provider: Pia Jackson MD PROCEDURE: XR CHEST 2V INDICATIONS: shortness of breath TECHNIQUE: 2 views of the chest were acquired. COMPARISON: [facility], , XR CHEST 2 VIEWS, 11/18/2018, 11:45. FINDINGS: Surgical changes and devices: None. Lungs and pleura: Lungs are clear. No pleural effusions or pneumothorax. Mediastinum: Mediastinal contours are normal. Heart size is normal. Bones and chest wall: No suspicious bony abnormalities. Soft tissues appear unremarkable. IMPRESSION: No acute process. Dictated by: Charlie Beckett M.D. on 11/24/2018 at 14:55 Approved by: Charlie Beckett M.D. on 11/24/2018 at 14:56 ECG Data Attestation: I personally reviewed and interpreted this ECG as follows: Interpretation: Rate 94, pr interval 145, QTC 395. Sinus rhythm, normal rate. No ST elevation, ST depression, or T-wave inversion. MDM Narrative Medical decision making narrative: I suspect that patient's symptoms are caused by aspiration pneumonia, even though x-ray was clear, patient presents with significant clinical symptoms such as elevated white blood cell count, elevated neutrophils, fever, and significant risk factors for aspiration pneumonia. Patient lives with and has family nearby, she states she is able to return to hospital if condition worsens. She did not appear ill enough to be admitted, so outpatient treatment was started after dose of IV antibiotics. It is possible that her pre-existing UTI could be contributing to her leukocytosis, ampicillin IV (1 dose during ED stay) and Augmentin p.o. were prescribed to cover both aspiration pneumonia and UTI. Patient instructed to discontinue nitrofurantoin. Strict return precautions given, follow up instructions discussed. <Pia Jackson MD - Last Filed: 11/28/18 07:08> Lab Data Lab Results 11/24/18 11/24/18 11/24/18 Range/Units 15:02 15:02 15:02 WBC 16.3 H (4.5-11.0) X10^3/uL RBC 4.11 (4.0-5.2) X10^6/uL Hgb 12.2 (12.0-16.0) g/dL Hct 36.3 (36-46) % MCV 88.4 (80-100) fL MCH 29.7 (26-34) PG MCHC 33.6 (30-36) % RDW 15.1 H (11.6-14.8) % Plt Count 235 (150-400) X10^3/uL Neut % (Auto) 91.5 H (50-75) % Lymph % (Auto) 2.4 L (25-40) % Garvin % (Auto) 4.7 (3-14) % Eos % (Auto) 1.2 L (2-4) % Baso % (Auto) 0.2 (0-2) % Neut # (Auto) 67674 H (2210-1678) /uL Lymph # (Auto) 400 L (4311-5764) /uL Garvin # (Auto) 800 (0-900) /uL Eos # (Auto) 200 (0-450) /uL Baso # (Auto) 0 (0-100) /uL Sodium 138 (137-145) mmol/L Potassium 4.0 (3.4-5.1) mmol/L Chloride 104 (98-107) mmol/L Carbon Dioxide 26 (22-32) mmol/L BUN 14 (7-17) mg/dL Creatinine 0.70 (0.52-1.04) mg/dL Estimated GFR > 60.0 (>60) mL/min BUN/Creatinine Ratio 20.0 (6-22) Glucose 125 H (80-110) mg/dL Lactate 1.8 (0.7-2.1) mmol/L Calcium 9.8 (8.4-10.2) mg/dL Total Bilirubin 1.2 (0.2-1.3) mg/dL AST 20 (14-36) IU/L ALT 16 (9-52) IU/L Alkaline Phosphatase 86 (38-126) U/L Total Protein 6.6 (6.3-8.2) g/dL Albumin 3.6 (3.5-5.0) g/dL Globulin 3.0 (1.7-4.1) g/dL Albumin/Globulin Ratio 1.2 (1.0-2.8) Influenza A & B (PCR) (Negative) 11/24/18 Range/Units 17:10 WBC (4.5-11.0) X10^3/uL RBC (4.0-5.2) X10^6/uL Hgb (12.0-16.0) g/dL Hct (36-46) % MCV (80-100) fL MCH (26-34) PG MCHC (30-36) % RDW (11.6-14.8) % Plt Count (150-400) X10^3/uL Neut % (Auto) (50-75) % Lymph % (Auto) (25-40) % Garvin % (Auto) (3-14) % Eos % (Auto) (2-4) % Baso % (Auto) (0-2) % Neut # (Auto) (4670-4576) /uL Lymph # (Auto) (4078-3660) /uL Garvin # (Auto) (0-900) /uL Eos # (Auto) (0-450) /uL Baso # (Auto) (0-100) /uL Sodium (137-145) mmol/L Potassium (3.4-5.1) mmol/L Chloride (98-107) mmol/L Carbon Dioxide (22-32) mmol/L BUN (7-17) mg/dL Creatinine (0.52-1.04) mg/dL Estimated GFR (>60) mL/min BUN/Creatinine Ratio (6-22) Glucose (80-110) mg/dL Lactate (0.7-2.1) mmol/L Calcium (8.4-10.2) mg/dL Total Bilirubin (0.2-1.3) mg/dL AST (14-36) IU/L ALT (9-52) IU/L Alkaline Phosphatase (38-126) U/L Total Protein (6.3-8.2) g/dL Albumin (3.5-5.0) g/dL Globulin (1.7-4.1) g/dL Albumin/Globulin Ratio (1.0-2.8) Influenza A & B (PCR) Negative (Negative) Discharge Plan Departure Patient Disposition: Home Clinical Impression: Aspiration pneumonia Qualifiers: Aspiration pneumonia type: unspecified Laterality: unspecified laterality Lung location: unspecified part of lung Qualified Code(s): J69.0 - Pneumonitis due to inhalation of food and vomit Discharge Date/Time: 11/24/18 19:47 Interventions: ED Discharge Assessment Last Done: 11/24/18 19:47 Instructions: DI for Aspiration Pneumonia Activity Restrictions/Additional Instructions: Thank you for entrusting me with your care today. As discussed, even though her chest x-ray showed no abnormal findings, your symptoms are most likely caused from aspiration pneumonia. You have gotten here 1st dose of antibiotics today. I am sending you home with a script for more antibiotics, you can start taking these tomorrow. These will also cover your existing urinary tract infection so you can stop the nitrofurantonin. Use your albuterol inhaler every 4 hours as needed for shortness of breath, use Tylenol as needed for fever. Please follow- up with their primary care provider in the next few days. If you become worse in any way such as increasing fever that is not responsive to Tylenol, increasing shortness of breath that is not responsive to her inhaler, confusion, chest pain, or vomiting please return to the emergency department. Drink lots of fluids and get lots of rest. Prescriptions: New amoxicillin-pot clavulanate 875-125 mg tablet 1 tab PO BID 10 Days Qty: 20 RF: 0 No Action trazodone 50 mg Tablet 100 mg PO BEDTIME RF: 0 triamterene-hydrochlorothiazid 37.5-25 mg Capsule 1 cap PO DAILY RF: 0 lisinopril 10 mg Tablet 10 mg PO BEDTIME RF: 0 loratadine [Claritin] 10 mg Tablet 10 mg PO BEDTIME PRN (Reason: seasonal allergies) RF: 0 citalopram 20 mg tablet 20 mg PO DAILY RF: 0 albuterol sulfate 90 mcg/actuation HFA aerosol inhaler 2 puff Inhalation Q4H PRN (Reason: Shortness Of Breath Or Wheezing) RF: 0 nitrofurantoin monohyd/m-cryst 100 mg capsule 100 mg PO BID RF: 0
[2018-11-24 15:14] LABS: Add Manual Diff / Slide Review NO; Basophils Absolute Auto 0 /uL (0-100); Basophils Percent Auto 0.2 % (0-2); Eosinophils Absolute Auto 200 /uL (0-450); Eosinophils Percent Auto 1.2 % (2-4); Hematocrit 36.3 % (36-46); Hemoglobin 12.2 g/dL (12.0-16.0); Lymphocytes Absolute Auto 400 /uL (1100-4500); Lymphocytes Percent Auto 2.4 % (25-40); Mean Corpuscular HGB Conc 33.6 % (30-36); Mean Corpuscular Hemoglobin 29.7 PG (26-34); Mean Corpuscular Volume 88.4 fL (80-100); Monocytes Absolute Auto 800 /uL (0-900); Monocytes Percent Auto 4.7 % (3-14); Neutrophils Absolute Auto 14900 /uL (1500-7000); Neutrophils Percent Auto 91.5 % (50-75); Platelet Count 235 X10^3/uL (150-400); Red Blood Cell Count 4.11 X10^6/uL (4.0-5.2); Red Cell Distribution Width 15.1 % (11.6-14.8); White Blood Cell Count 16.3 X10^3/uL (4.5-11.0)
[2018-11-24] MEDS: ALBUTEROL/IPRATROPIUM 3 ML AMPUL INH (15:24)
[2018-11-24 15:25] LABS: Lactate (Lactic Acid) 1.8 mmol/L (0.7-2.1)
[2018-11-24 15:27] LABS: Alanine Aminotransferase 16 IU/L (9-52); Albumin 3.6 g/dL (3.5-5.0); Albumin Globulin Ratio 1.2 (1.0-2.8); Alkaline Phosphatase 86 U/L (38-126); Aspartate Aminotransferase 20 IU/L (14-36); Bilirubin Total 1.2 mg/dL (0.2-1.3); Blood Urea Nitrogen 14 mg/dL (7-17); Calcium 9.8 mg/dL (8.4-10.2); Carbon Dioxide 26 mmol/L (22-32); Chloride 104 mmol/L (98-107); Estimated Glomerular Filt Rate > 60.0 mL/min (>60); Glucose 125 mg/dL (80-110); HEMOLYSIS < 15 (0-50); Sodium 138 mmol/L (137-145); Total Protein 6.6 g/dL (6.3-8.2)
[2018-11-24] MEDS: SODIUM CHLORIDE 0.9% 1,000 ML 500 ML IV (17:07)
[2018-11-24 17:33] LABS: Influenza A and B by PCR Rapid Negative (Negative)
[2018-11-24] MEDS: AMPICILLIN/SULBACTAM 3 GM 3 GM in SODIUM CHLORIDE 0.9% 100 ML IV (17:47)
[2018-11-24] MEDS: ACETAMINOPHEN 325 MG TABLET 975 MG PO (18:28)
[2018-11-24] MEDS: ALBUTEROL 2.5 MG/3 ML NEB (ADULT) INH (18:46)
== END 2018-11-24 19:47 | disposition home or self-care (01) ==
PROVIDERS: Emergency Medicine; Emergency Provider Nurse Practitioner; Family Provider Orthopaedic Surgery
DX: J69.0 Pneumonitis due to inhalation of food and vomit (principal)
CPT/HCPCS: 36415; 71046; 80053; 83605; 85025; 87040; 87400; 93005; 94150; 94640; 96361; 96365; 99284; 99285; J0295; J7613

== ENCOUNTER 2018-12-14 15:07 | Outpatient (RCR) | payer MEDICARE, SELFPAY ==
--- NOTE | 2018-12-15 18:48 | ST.OPIE ---
Provider Information Visit Care Team Role Provider Type Minnie Morales MD Attending Provider Non-Staff Primary Care Provider Specialty: Family Practice Address: [address] [place] [address], [id number] Email: Speech-Language Pathology Initial Evaluation [employer] Clinical Swallow Evaluation Start: 12/14/18 16:24 Freq: Status: Active Protocol: Document 12/15/18 18:26 LNK (Rec: 12/15/18 18:47 LNK [id number]) Clinical Swallow Evaluation Session Time Visit Start Time 15:30 Visit Stop Time 16:30 Total Visit Minutes 60 Visit Information Visit Number 1 Plan of Care Dates 12/14/18-03/16/[address] Morales Reason for Referral recurrent pneumonia/dysphagia Setting Assessment Location Outpatient Care Visit Type Note Type Initial Evaluation Next Note Type Next Note Type Re-Evaluation Patient Information Identification Type Name Picture History Luanne Carrasco was seen for a clinical swallowing evaluation following her inpatient status at [facility] for recurrent pneumonia. During her hospitalization a Modified barium Swallow Study was completed on October 31, 2018 with the results indicating moderate pharyngeal dysphagia. While pt did not show aspiration or penetration during the evaluation, given the overall weakness of the pharyngeal muscles and limited ROM of structures, the possibility of silent aspiration could be ruled out. Additionally, pooling in the pharyngeal spaces may be accumulating over time, leading to silent aspiration. This may also be the cause of her throat clearing and coughing due to irritation of pooling on the vocal folds. [ End ] Subjective Observations Luanne was on time for her appointment. Evaluation Liquids Trialed Thin Solids Trialed Regular Administration Type Self-Feeding Oral Impairment WFL Oral Strategies Upright at 90 degrees Double Swallow Lingual Sweep Controlled Bite/Sip Size Other Oral Phase Comments Luanne presented with adequate dentition, OM examination WFL and adequate mastication and bolus formation/control with a cookie. No labial leakage observed. No oral residue observed. Pharyngeal Impairment WFL Pharyngeal Strategies Sitting Upright (90 deg) Chin Tuck Double Swallow Supraglottic Swallow Mendelsonn Maneuver Small Bites and Sips Pharyngeal Phase Comments Luanne demonstrated adequate hyolaryngeal elevation and improved forward motion of the hyoid bone. Further there was no observed cough or wet voicing following all trials. Luanne reported that she has been faithfully performing her linguapharyngeal exercises as prescribed to her in the hospital. She has been doing the exercises at least 4-6 days/per week. She appears to be safely tolerating her current diet of thin liquids and regular texture. Findings Rehabilitation Potential Excellent Impressions Luanne has been performing her exercises, which seem to have helped to increase her swallow safety. She made a comment that she has been sleeping on a 30 degree wedge at home and her sleeping, and GERD have improved significantly. Luanne is scheduled to undergo ACDF surgery following removal of her thyroid for goiter. She has been given information re: what to expect after ACDF for her voice and swallowing. It was recommended that Luanne return for reassessment following her ACDF surgery. An MBS will likely be recommended to compare to the MBS taken on October 31, 2018. Diet Recommendations Liquids Order Thin Diet Order Regular Medication Recommendations As Tolerated Aspiration Precautions Recommended Precautions Upright at 90 Degrees Small Bites/Sips Effortful Swallow Double Swallow Supraglottic Swallow Nicolasa Maneuvor Treatment Plan Appropriate for Therapy No: Luanne will return following her ACDF in approximately 2 months. Will F/U Therapy Recommendations Continue linguapharyngeal exercises prescribed daily SENIOR ADMINISTRATIVE SUPPORT Follow Up following ACDF surgery for MBs study re: swallow status
--- NOTE | 2019-01-17 13:25 | ST.OPDS ---
Care Team Visit Care Team Role Provider Type Minnie Morales MD Attending Provider Non-Staff Primary Care Provider Address: [address] [place] [address], [id number] [facility] Treatment Note [facility] Treatment Note Start: 12/14/18 16:24 Freq: Status: Active Protocol: Document 01/17/19 13:23 LNK (Rec: 01/17/19 13:24 LNK [id number]) Speech Pathology Treatment Note General Information General Information Luanne Carrasco was seen for a clinical swallowing evaluation on 12/14/18 following her inpatient status [facility] for recurrent pneumonia. During her hospitalization a Modified barium Swallow Study was completed on October 31, 2018 with the results indicating moderate pharyngeal dysphagia. Subjective Chief Complaint(s) Swallowing Assessment Assessment of Improvement Pt did not return to this clinic following her initial evaluation on 12/14/18. Discharge from at this time Plan Frequency of Treatment No Further Therapy Therapy Recommendations Discharge from Speech Therapy
== END 2019-01-19 10:06 | disposition home or self-care (01) ==
LOC: SP 15:07
PROVIDERS: PCP Family Medicine; Visit Provider Family Medicine
DX: Z87.01 Personal history of pneumonia (recurrent) (principal)
CPT/HCPCS: 92610

== ENCOUNTER 2019-04-18 06:02 | Inpatient (IN) | payer MEDICARE, SELFPAY ==
[2019-04-05 10:02] VITALS: BMI 52.2
[2019-04-18] VITALS (16 sets, daily range): BP systolic 112–149; BP diastolic 56–73; PULSE 71–111; RESP 10–20; TEMP 35.7–36.6; O2SAT 92–99; BMI 53.4
--- NOTE | 2019-04-18 | DI.RAD.S_ITS ---
PROCEDURE: XR CERVICAL SPINE 2V OR 3V INDICATIONS: O8-8-3-6-7-T1 ACDF ANT/POSTERIOR TECHNIQUE: 4 view(s) of the cervical spine were acquired. COMPARISON: None. FINDINGS: Bones: Intraoperative fluoroscopy demonstrates a tear in posterior fusion hardware throughout the cervical spine from C3-C7 and including C7-T1. No fractures or subluxation Soft tissues: No prevertebral soft tissue swelling. Endotracheal tube is projecting of the tissues in the expected location. IMPRESSION: Intraoperative fluoroscopy for cervical spine fusion. Dictated by: Brandie Vegas M.D. on 04/18/2019 at 15:04 Approved by: Brandie Vegas M.D. on 04/18/2019 at 15:07
--- NOTE | 2019-04-18 07:18 | PM.PREOP ---
Pre-operative Note Interval Note History & Physical reviewed/Exam performed by Physician: Yes Changes to H&P: No H&P completed within 30 days and has changed as indicated here:: No active UTI but ID has her on prophylactic keflex
--- NOTE | 2019-04-18 07:46 | PM.OP.1 ---
Operative Date/Time/Diagnoses Date of procedure: 04/18/19 Pre-op diagnosis: Cervical stenosis with myelopathy Post-op diagnosis: same Procedure & Clinicians Procedure: C3-4, C4-5, C5-6, C6-7, C7-T1 anterior cervical diskectomy and fusion C3-4, C4-5, C5-6, C6-7, C7-T1 posterior fusion with instrumentation Iliac crest bone graft aspirate Use of microscope Same procedure as scheduled: Yes Indications: [age] year old female with intractable pain from cervical myelopathy and stenosis. They had failed conservative management and requested operative intervention. Risks and benefits of surgery were discussed and appropriate consents were obtained. Surgeon: Carlitos Jones Presidential Support Specialist: Madiha Quesada Anesthesia Type: General Operative Notes Findings: none Closure Type: primary Specimen(s): none sent Prosthetic devices, grafts, tissues, transplants, or devices: Jimmy TARAH-C anteriorly [place] DTrax posteriorly Applied: catheter Estimated Blood Loss (mL): 20 Blood products transfused: none Procedure in detail: The patient was brought to the operating room and intubated on the stretcher. Time-out was performed. There were then rolled over to the well-padded prone position on chest rolls. Two views of fluoroscopy were taken to confirm our positioning. The neck was then prepped and draped in the standard sterile fashion. Preoperative antibiotics were given. Using fluoroscopy, we localized for planned incisions. Two small 8 mm horizontal incisions were made over the lateral masses approximately 2 fingers below our planned surgical site. We then spread down and opened up the fascia. Then percutaneously placed our Steinmann pin through the soft tissue into the facet joint at C3-4 under fluoroscopic visualization. We used the reamer to decorticate the lateral masses compromising the facet. A trocar was placed over the Steinmann pin into the facet and then the pin was removed. We used a rasp to decorticate the facet joint itself. We then filled the DTrax cage with Primagen bone graft and impacted it into the facet joint at C3-4 under fluoroscopic guidance. We then took the lateral mass screw and placed it through the cage and then into the lateral mass for the posterior screw fixation. The stone polisher machine was removed and we packed more bone graft down the trocar covering the lateral mass. This was done bilaterally. This completed the instrumented posterior fusion at C3-4. We then went to the next levels at C4-5, C5-6, C6-7, and C7-T1. The same procedure was performed with preparation, placement of the cage with bone graft, and placement of the screw for bilateral instrumented posterior fusion at C4-5, C5-6, C6-7 and C7-T1 except due to her anatomy we could not get a cage in on the left side at C7-T1 but we worry easily able to get it on the right. The wounds were irrigated. The skin was closed and a sterile dressing placed. The patient was then rolled over to the table in the supine position and positioned for the anterior surgery. The arms were tucked and a shoulder roll was placed. The neck and left iliac crest were prepped and draped in the standard sterile fashion. A 3 cm oblique incision was made on the left side of the neck along the skin fold. Bovie was used to split the platysma. We then bluntly dissected a standard anterolateral approach to the precervical fascia. A marker was placed and x-ray taken to confirm our positioning. We then used the Bovie to the subperiosteally lift up the longus colli muscles. Self-retaining retractors were placed. We then placed Delray pins and distracted across the C7-T1 disc space. We brought in the microscope. A complete anterior discectomy was performed at C7-T1 using a combination of scalpel, curettes, pituitaries, and Kerrison rongeurs. We swept a nerve hook along the PLL and out to the neural foramen and everything was opened at this point. A bur was used to decorticate the endplates. We trialed for our cages. A small stab incision was made over the left iliac crest. We placed a Jamshidi aspiration needle into the iliac crest and aspirated several mL of bone marrow graft. We then took our Jimmy LDR TARAH-C cage and packed it with Primagen, and mixed in the bone marrow aspirate. The cage was then placed into the disc space under fluoroscopic guidance. The 2 locking plates were placed through the cage for fixation. This completed the ACDF at C7-T1. We then went to the next levels at C6-7, then C5-6, then C4-5, then C3-4. Again a complete diskectomy was performed and at these levels including taking down the PLL and posterior osteophytes and disc material. The endplates were prepped with a bur. The nerve hook confirmed everything was open. We trialed and then packed our TARAH-C cage with the bone graft and then placed into the disc space. The locking plates were placed as well. This completed the ACDF at C3-4, C4-5, C5-6, and C6-7. Final x-rays were taken. The wound was copiously irrigated. There was no bleeding. The carotid was bleeding nicely. The platysma was closed. The superficial skin were closed. A Steri-Strip was placed over the iliac crest incision. Sterile dressings were placed. The patient was then extubated and brought to the recovery room without complication. Complications: none Post-operative Condition: stable Disposition: PACU Plan for aftercare: Inpatient. Up with therapy.
[2019-04-18] MEDS: CEFAZOLIN 2 GM/100 ML FROZ.PIGGY IV ×3 (08:00→21:05)
--- NOTE | 2019-04-18 08:36 | SUR.OPER ---
Supine, head on gel donut. Arms padded with gel pads, tucked at sides, towel roll under shoulders. Safety belt at thigh. Legs uncrossed.
[2019-04-18] MEDS: SODIUM CHLORIDE 0.9% 1,000 ML, GENTAMICIN 80 MG IRR (08:56)
[2019-04-18] MEDS: THROMBIN (RECOMBINANT) 5,000 UNIT VIAL 5000 UNIT TOP (08:57)
[2019-04-18] MEDS: BUPIVACAINE 0.25% W/ EPI 30 ML VIAL 60 ML INJ (10:20)
[2019-04-18] MEDS: LACTATED RINGERS 1,000 ML 42 ML IV (10:32)
[2019-04-18] MEDS: fentaNYL 100 MCG/2 ML INJ 50 MCG IV (13:06)
--- NOTE | 2019-04-18 13:47 | SUR.PHASEI ---
RECEIVED PT WITH #2 BAG OF LR INFUSING, TOTAL OR AND PACU FLUIDS = 1900, 375CC EMPTIED FROM [facility]. REPORT CALLED TO BROWN PEREZ
[2019-04-18] MEDS: LACTATED RINGERS 1,000 ML 125 ML IV ×2 (14:24→23:39)
[2019-04-18] MEDS: HYDROCODONE/ACET 5/325 TABLET 1 TAB PO ×3 (14:59→23:47)
--- NOTE | 2019-04-18 15:00 | PC.NURSE ---
Pt to floor 1355 alert but drowsy. Rates pain 6/10 across her shoulders, given some apple sauce and one norco 5/325. Patient able to swallow without difficulty. Sats on 4L 88-91%, RT called and set up patients cpap with 5L O2 bleed in.Bed alarm on.
--- NOTE | 2019-04-18 15:19 | PT-IP ANOTE ---
PT order received. Contacted pt who reports 8/10 pain and refused mobility. Educated pt on importance of early mobility following surgery, but she continued to refuse. Pt understands PT will be in tomorrow morning for evaluation.
[2019-04-18] MEDS: hydrOXYzine pamoate 25 MG CAPSULE PO ×2 (16:40→23:47)
[2019-04-18] MEDS: DEXAMETHASONE 4 MG/ML VIAL IV ×2 (18:17→23:39)
--- NOTE | 2019-04-18 18:31 | CM.DANOTE ---
DCP Assessment: EMR reviewed: patient is a 69 yr old female who was admitted for Cervical Diskectomy and fusion Preformed by Dr. Robledo. PCP is Dr. Morales. CM met with patient at bedside and explained CM role. Patient was alert and oriented patient is I with ADL's at baseline. Patient lives at home with her and adult daughter. Patient stated she has a F/U appointment with surgery scheduled for a week from wednesday. 04/28/2019. Insurance: 1st: [employer] 2nd: self pay Plan: D/C home with and daughter when medically stable with OP PT when okay by Dr. robledo. PT and OT evaluations pending No identified d/c planning needs noted at this time. Jennifer Martin RN Discharge Planning/Care Management CM Discharge Assessment Start: 04/18/19 18:29 Freq: Status: Active Protocol: Document 04/18/19 18:29 HS (Rec: 04/18/19 18:31 [id number]) Discharge Planning Assessment Assigned Senior Asic Design Engineer Jennifer Martin RN DPOA/Assigned Designee Name Carlitos GALDAMEZ Contact Information [phone] Advance Directives? Yes Advance Directives on File Yes History Provided By Patient Has Patient been admitted in last 30 No days? Prior Living Arrangements RV Household Members spouse Type of transporation used prior to Drives own vehicle admit Independent with ADL's Yes Is patient alert and oriented? Yes Caregiver for Another No DME Already Rented / Owned FWW / Walker,Cane Patient/Family Preference OP PT Therapy Comment Once cleared from surgeon Discharge Plan Home Transportation Arrangement Family Referrals Initiated None needed Whiteboard Updated in Patient Room with Yes name and ext. # of Senior Asic Design Engineer Review Status In Process Next Review Type Continued Stay Review Pre-Anesthesia Assessment Start: 04/05/19 10:02 Freq: Status: Complete Protocol: Document 04/05/19 10:02 CAB (Rec: 04/05/19 10:50 CAB [id number]) Pre-Anesthesia Assessment PAC Comment Recurrent UTI (E.Coli) under care with Infectious Disease, Surgeon's office aware Patient Also Known As Stroud (AKA) Patient Information Reviewed Via Phone Assessment Assessment Completed With Patient Diagnostic Results BMP/CMP,CBC,EKG,Urinalysis Comment Outside labs/EKG scanned to record Primary Care Provider Minnie Morales Seen Specialist in Last 12 Months Yes Specialist Seen Orthopedist,Sleep specialist, Urologist,Other Comment Infectious disease. PCP visit 03/14/19 scanned to record Primary Language Guamanian Preferred Language Guamanian Staff Respiratory Therapist Required No Height 148.59 cm Weight 115.212 kg Body Mass Index (BMI) 52.2 Hearing Ability Hard of Hearing,Use of Hearing Aid Visual Assist Glasses,Magnifying Glass Dentition Type Teeth, Natural Present Barriers to Learning None Other Aids Yes: CPAP Hx Anesthesia Reactions No Hx Family Anesthesia Reaction No Hx Malignant Hyperthermia No Hx Blood Transfusions No Anesthesia Review Requested No Vp Ad [place] No alcohol intake current alcohol intake frequency holidays/special occasions only Smoking Status Former smoker Tobacco type cigarettes how long ago did patient quit smoking Quit 1998 Substance Use Type does not use Pain Present Pain Reported Musculoskeletal Symptoms Back Pain,Limited Range of Motion,Neck Pain,Radiating Pain into Limb,Tingling History of Falling (Recent or History of No ) Patient is completely paralyzed or No completely immobile Mental Status Oriented to own ability Is patient on oxygen? No Does patient have IVERSON/SOB No Hx Sleep Apnea Yes CPAP/BIPAP use prescribed used intermittently Currently Taking a Beta Chery No Can You Climb a Flight of Stairs Without Yes SOB Hx Chest Pain No Hx SOB No Hx Syncope or Dizziness Yes: Dizziness occasionally r/ t neck problems and reaching upward Anti-Coagulant Therapy No Has a Ebd Special Education Teacher No Cardiac Testing Yes: Stress test 08/18/18, negative for ischemia Hx Pacemaker/ICD No Pacemaker Rep Required? No Cardiac Clearance Received Not Applicable Diet Type At Home Regular dysphagia No Bladder Pattern Frequency,Incontinent,Urgency Urinary Catheter Present No Hx Urinary Self Catheterization No Comment Frequent UTI's, currently evaluating w/infectious disease Diabetes No: Pre-diabetes Patient No Lactating No Hx Drug Resistant Organism No Presence of External or Internal Medical Yes: Bilateral knee hardware, Devices CPAP Have you traveled outside the [facility] States in the last 30 days? Marital Status Lives With spouse Prior Living Arrangements RV Number of Floors (Floors) One Floor Support System Child/Children,Spouse Does the Patient Have Assistance After Yes Surgery Patient Discharge Plan Description Return Home Comment Pt not advised on length of stay per surgeon's office Feels Safe in Current Environment Yes Been Physically Hurt or Threatened By a No Person in Current Environment Do you have thoughts of harming yourself None or others? Are you currently considering suicide? No Do you have a plan to hurt yourself or No Plan others? Do You Have Any Spiritual Beliefs That No May Affect Your HC Choices? Do You Have Any Cultural Practices That No May Affect Your HC Choices? Comment Holiness Who Can We Speak to About Patient's Care Family, friends Identifying Code for Release of Patient Declines to issue Information Health Care Proxy/Next of Kin Carlitos () Health Care Proxy Emergency Contact Name Carlitos () Emergency Contact Advance Directives? Yes Advance Directives on File Yes PAC Instructions Bring CPAP/BIPAP,Durable medical equipment,Medications to take/avoid,Nasal antibiotic ,NPO,Post-op transportation, Pre-surgical wash,Sturdy shoes /comfortable clothes,Do not bring valuables and remove jewelry
[2019-04-18] MEDS: SENNOSIDES 8.6 MG TABLET 17.2 MG PO (21:06)
[2019-04-18] MEDS: CELECOXIB 200 MG CAPSULE PO (21:06)
[2019-04-18] MEDS: TRAZODONE 50 MG TABLET 100 MG PO (21:06)
[2019-04-18] MEDS: LISINOPRIL 10 MG TABLET PO (21:06)
[2019-04-18] MEDS: DOCUSATE 100 MG CAPSULE PO (21:06)
[2019-04-18] MEDS: GABAPENTIN 300 MG CAPSULE PO (21:06)
[2019-04-18] MEDS: cephALEXin 250 MG CAPSULE 500 MG PO (23:40)
[2019-04-19] VITALS (8 sets, daily range): BP systolic 124–143; BP diastolic 56–69; PULSE 68–88; RESP 14–19; TEMP 36.4–36.9; O2SAT 95–98
[2019-04-19] MEDS: CEFAZOLIN 2 GM/100 ML FROZ.PIGGY IV (04:00)
[2019-04-19] MEDS: LEVOTHYROXINE 125 MCG TABLET PO (05:52)
[2019-04-19] MEDS: DEXAMETHASONE 4 MG/ML VIAL IV ×2 (05:52→12:18)
[2019-04-19] MEDS: hydrOXYzine pamoate 25 MG CAPSULE PO ×3 (06:12→18:52)
[2019-04-19] MEDS: HYDROCODONE/ACET 5/325 TABLET 1 TAB PO (06:12)
--- NOTE | 2019-04-19 06:52 | PC.NURSE ---
Shift note: Received pt from evening shift. AxOx3, able to make needs known, uses call light appropriately, able to turn self in bed, bearden to gravity and draining. Pain managed well with 1 tab PO [place] 5mg and 25mg PO Vistaril. Pt initially had 2L O2 bled into CPAP, pt removed CPAP during the night and has maintained O2 sats in 90's without difficulty. Pt has dressing to anterior and posterior neck with serosang drainage, both gauze with tegaderm, also has dressing to left anterior groin/hip, steri strip with tegaderm. CMS intact, no c/o nausea or vomiting, passing flatus with positive bowel tones. Pt is a moderate fall risk, bed alarm on and functioning.
--- NOTE | 2019-04-19 08:11 | ST.IPSCREEN ---
Patient screened per ACDF protocol. Patient has history of dysphagia with aspiration pneumonia prior to removal of a large thyroid nodule earlier this year. She reports all symptoms of dysphagia have resolved following her thyroid surgery and she is not experiencing difficulty swallowing at this time s/p day 1 ACDF. She consumed 2 straw sips of water without signs of aspiration. Written and verbal education were provided regarding safe swallow strategies and management and she verbalized understanding. Patient has a good understanding of dysphagia precautions and swallowing exercises as she received prior outpatient ST in September. D/c ST orders at this time. Please continue to monitor patient for s/sx of aspiration and re-consult as needed.
--- NOTE | 2019-04-19 08:12 | P.DS_ITS ---
History of Present Illness History of Present Illness Date Patient Seen: 04/20/19 Time Patient Seen: 08:07 Chief complaint: Cervical Fusion Anterior/Posterior *$450 copay Narrative: 69-year-old female with cervical myelopathy. She had pain in the neck as well as pain and numbness and weakness going into the right more than the left arm. She had failed physical therapy. This been going on for over year. Discharge Providers Provider Date of admission: 04/18/19 06:02 Discharge Date: 04/20/19 Primary care physician: Minnie Morales MD Consults: 04/18/19 07:09 Consult to Respiratory Therapy Evaluate & Treat Comment: Physician Instructions: Evaluate and treat 04/18/19 13:55 Consult to Occupational Therapy Evaluate & Treat Comment: Physician Instructions: Evaluate and treat Consult to Physical Therapy Evaluate & Treat Comment: Physician Instructions: Evaluate and Treat Consult to Speech Therapy Evaluate & Treat Comment: 5 level ACDF Physician Instructions: Evaluate and treat Discharge provider: Carlitos Jones MD Summary Hospital Course Discharge Diagnosis: Cervical stenosis with myelopathy Morbid obesity with BMI greater than 50 Hospital Course: She is brought to the operating room on 04/18/2019 where she underwent a C3 through T1 anterior diskectomy and anterior and posterior instrumented fusion with bone graft. After surgery she was having pain running down her left arm but this resolved overnight. The next day she had pain going down the right arm but this also resolved. By the date of discharge just a little tingling in the left little to fingers. Neck pain was under good control Status at Discharge Cognitive/behavioral status at discharge: oriented Functional status at discharge: independent ambulation Overall status at discharge: patient is progressing back to baseline Exam Vital Signs (past 8 hours): - 04/19/19 04:16 04/19/19 07:20 04/19/19 07:22 Temperature 97.9 F 97.6 F Pulse Rate 88 75 Respiratory Rate 19 17 Blood Pressure 124/56 L 133/63 Pulse Oximetry 98 96 96 Oxygen Delivery Method Room Air Oxygen Flow Rate 0 Const Orientation: alert and oriented x3 Back/Spine/Pelvis Other: Anterior dressing CDI, posterior dressing mild dry drainage. 5/5 motor both upper extremities except for 4/5 bilateral sandal parts assembler. Discharge Plan Discharge Plan Patient Disposition: Home Discharge comment: f/u 1.5 wks Discharge Med Rec/Prescriptions Prescriptions: New celecoxib [Celebrex] 200 mg Capsule 200 mg PO BID Qty: 60 RF: 0 docusate sodium [DOK] 100 mg Capsule 100 mg PO BID PRN (Reason: constipation) Qty: 30 RF: 0 hydrocodone-acetaminophen 5-325 mg Tablet See Rx Instructions .ROUTE .COMPLEX PRN (Reason: Pain, Moderate (4-6)) Qty: 30 RF: 0 diazepam 5 mg Tablet 5 mg PO Q6HR PRN (Reason: Spasms) Qty: 15 RF: 0 Continued trazodone 50 mg Tablet 100 mg PO BEDTIME RF: 0 triamterene-hydrochlorothiazid 37.5-25 mg Capsule 1 cap PO DAILY RF: 0 lisinopril 10 mg Tablet 10 mg PO BEDTIME RF: 0 loratadine [Claritin] 10 mg Tablet 10 mg PO BEDTIME PRN (Reason: seasonal allergies) RF: 0 citalopram 20 mg tablet 20 mg PO DAILY RF: 0 albuterol sulfate 90 mcg/actuation HFA aerosol inhaler 2 puff Inhalation Q4H PRN (Reason: Shortness Of Breath Or Wheezing) RF: 0 acetaminophen [Tylenol Extra Strength] 500 mg Tablet 1,000 mg PO BID PRN (Reason: Pain) RF: 0 levothyroxine 150 mcg Capsule 125 mcg PO DAILY RF: 0 Discontinued ibuprofen [Advil] 200 mg Tablet 400 mg PO BID PRN (Reason: Pain) RF: 0 Follow up/Referrals: Minnie Morales MD [Primary Care Provider] - Carlitos Jones MD [Physician] - Provider Discharge Instructions Diet: Diet as Tolerated Activity: 10 lbs max lift Skin/Wound/Dressing Care Report to your healthcare provider any signs of infection, such as:: chills, fever, night sweats, increased pain, unusual drainage and unusual redness Dressing: may change and shower POD#5 Visit Report/Discharge Packet Instructions: How to Prevent Falls, DI for Postoperative Pain, DI for Anterior Cervical Discectomy and Fusion, Hydrocodone/Acetaminophen (By mouth) Stand Alone Forms: Surgery Discharge Visit Report Forms: Stroke Signs & Symptoms Discharge Data Primary Care Provider: Minnie Morales Quality VTE Deep Vein Thrombosis/Pulmonary Embolism Present on Admission: No
--- NOTE | 2019-04-19 08:18 | PM.PNPO.1 ---
Subjective Subjective Date Patient Seen: 04/19/19 Time Patient Seen: 08:18 Interval history: Neck pain is all on the right side with now radiation going down the radial right forearm to thumb. Left-sided arm pain she was having yesterday has resolved. Exam Vital Signs (past 8 hours): - 04/19/19 04:16 04/19/19 07:20 04/19/19 07:22 Temperature 97.9 F 97.6 F Pulse Rate 88 75 Respiratory Rate 19 17 Blood Pressure 124/56 L 133/63 Pulse Oximetry 98 96 96 Oxygen Delivery Method Room Air Oxygen Flow Rate 0 Const Orientation: alert and oriented x3 Back/Spine/Pelvis Other: Anterior dressing CDI. Posterior dressing mild dry drainage. 5/5 motor both upper extremities except for 4/5 bilateral development educator. Assessment & Plan Post-op Postoperative Procedures: Procedures Operation Date: 04/18/19 07:45 Actual Procedures Side Surgeon p C3-T1 anterior cervical discectomy and fusion w/ bone graft, C3-T1 posterior instrumented fusion Carlitos Jones MD stable after surgery. Still having arm pain, continue with her IV steroid dosing. Mobilize today with physical therapy. Anticipate discharge home tomorrow. Quality VTE Deep Vein Thrombosis/Pulmonary Embolism Present on Admission: No
[2019-04-19] MEDS: CITALOPRAM 20 MG TABLET PO (09:56)
[2019-04-19] MEDS: TRIAMTERENE/HCTZ 37.5/25 TABLET 1 CAP PO (09:56)
[2019-04-19] MEDS: DOCUSATE 100 MG CAPSULE PO ×2 (09:56→20:23)
[2019-04-19] MEDS: CELECOXIB 200 MG CAPSULE PO ×2 (09:57→20:23)
[2019-04-19] MEDS: cephALEXin 250 MG CAPSULE 500 MG PO ×4 (09:57→20:23)
--- NOTE | 2019-04-19 10:28 | OT.IP.EVAL ---
Current Diagnoses Unspecified cord compression (04/18/19) Spinal stenosis, cervical region (04/18/19) Surgery Performed Operation Date: 04/18/19 07:45 Actual Procedures p C3-T1 anterior cervical discectomy and fusion w/ bone graft, C3-T1 posterior instrumented fusion - Carlitos Jones MD Past Medical History (Last Updated 04/05/19 @ 10:38 by Emily Barfield RN) Anxiety (Acute) Arthritis (Acute) Aspiration pneumonia (Acute 11/01/18) Asthma (Acute) Edema (Acute) Former smoker (Acute) Gout (Acute) Hearing impaired (Acute) HLD (hyperlipidemia) (Acute) HTN (hypertension) (Acute) MALGORZATA on CPAP (Acute) Osteoarthritis (Acute) Pre-diabetes (Acute) UTI (urinary tract infection) (Acute ~08/2018) Surgical History (Last Updated 04/05/19 @ 10:37 by Emily Barfield RN) History of 2 sections (Acute) History of arthroplasty of left knee (Acute 03/19/14) History of arthroplasty of right knee (Acute 10/23/13) History of colonoscopy (Acute ~10/2014) History of partial hysterectomy (Acute ~1983) Hx of appendectomy (Acute) Hx of thyroidectomy (Acute 01/23/19) Hx of tonsillectomy (Acute) Status post bilateral LASIK surgery (Acute) Occupational Therapy Inpatient Evaluation/Re-Eval M1 PT/OT-IP Prior Functional Status Start: 04/19/19 09:59 Freq: NEEDED Status: Active Protocol: Document 04/19/19 09:59 [facility] (Rec: 04/19/19 10:28 [facility] [id number]) Medical Review Prior Functional Status Medical History Reviewed Yes Communication Independent Mobility and Gait Pt states did not use a device for walking. Activities of Daily Living and IADL's Completely independent with ADL's, IADL, paid the bills by computer, and took her own medications. Prior Functional Level (Other details) Pt has two dogs who will stay with her daughter for a couple of days. Pt states will sleep in the lift chair initially. Social History Household Members spouse Living Arrangements RV Number of Floors (Floors) Two Floors Number of Stairs To Enter/Railing? Pt has 3 steps with bilateral rails to get into the 5th Wheel. Home Environment Standard Height Toilet,Built- In Shower Seat Home Equipment Front Wheel Walker,Straight Cane,Long Handled Shoe Horn, Auditor In Charge,Sock Aid,Grab Bars Near Toilet,Grab Bars In Shower Employment Status Retired M2 OT-IP Current Condition Start: 04/19/19 09:59 Freq: Status: Active Protocol: Document 04/19/19 09:59 [facility] (Rec: 04/19/19 10:28 [facility] [id number]) Occupational Therapy Current Condition Current Condition Evaluation Date 04/19/19 Treatment Diagnosis C3 through T1 anterior discectomy & fusion, post. instrumental fusion Diagnosis Onset Date 04/18/19 Post Operative Precautions Cervical Spine Precautions Soft Collar for Comfort,No Heavy Lifting,Log Roll M3 OT- IP Subjective and Pain Start: 04/19/19 09:59 Freq: Status: Active Protocol: Document 04/19/19 09:59 [facility] (Rec: 04/19/19 10:28 [facility] [id number]) OT- Subjective Occupational Therapy Visit Type Type Initial Evaluation Visit Start Time 09:20 Visit Stop Time 09:54 Total Visit Minutes 34 Occupational Therapy Visit Comments Patient Comments Pt agreeable to get up as wanting to wash her face at the sink. Patient/Caregiver Goals Pt states to go home tomorrow. OT Pain Assessment Pain When Pain Assessed At Rest Pain Present Pain Present Pain Reported Location Right Shoulder Intensity 7 Scale Used Numeric (1 - 10) Description Tingling M4 OT- IP ADL's Start: 04/19/19 09:59 Freq: Status: Active Protocol: Document 04/19/19 09:59 [facility] (Rec: 04/19/19 10:28 [facility] [id number]) OT MAC-[place] General Evaluation Self-Feeding Ability Independent OT ADL-Grooming General Evaluation Grooming Ability Independent Areas Needing Assistance Retrieving/Set-up of Grooming Items Comments OT Grooming Comments Pt able to stand at the sink for grooming needs. Educated to lean to spit or spit into a cup. Pt educated on soft collar management and needs and needing cue to tighten the collar a little more to better support her neck as prior pt had the collar too loose. Pt given cervical and log rolling information sheet. OT ADL-Oral Care General Eval Oral Care Ability Independent OT ADL-Dressing Comments OT Dressing Comments Pt states has all LB dressing equipment form 's prior surgery. OT ADL-Toileting Comments OT Toileting Comments Pt states uses tongs to assist to help with wiping. Pt states also wears pads throughout the day. Pt able to sit and stand from toilet with SBA and use of grab bar on the left to assist to stand . Pt has a counter on the right to assist to stand at home. OT ADL-Bathing Comments OT Bathing Comments Pt states would like to shower tomorrow. M5 OT- IP IADL's Start: 04/19/19 09:59 Freq: Status: Active Protocol: Document 04/19/19 09:59 [facility] (Rec: 04/19/19 10:28 [facility] [id number]) OT-Instrumental Activities of Daily Living Home Safety Awareness Awareness of Need for Assistance at Home Good Awareness Ability to Problem Solve Emergency Able to Problem Solve Situations Medication Management Medication Management No Deficits Identified Money Management Money Management No Deficits Identified Lab Animal Technologist Lab Animal Technologist Caregiver Provides Assist M6 OT- IP Functional Cognition Start: 04/19/19 09:59 Freq: Status: Active Protocol: Document 04/19/19 09:59 [facility] (Rec: 04/19/19 10:28 [facility] [id number]) Cognitive Factors Limiting Selfcare Function Cognitive Ability Level of Alertness Alert Patient Orientation Name,Age,Birthday,Month,Date, Year,Day of Week,Place, Situation Attention Span Ability Capable of Focused Attention, Capable of Sustained Attention Ability to Follow Commands Able to Follow Multi-Step Commands Cognitive Comments Cognitive Assessment Comments Pt able to follow 2-3 commands and at this appears intact for cognition with no deficits . OT- Vision and Hearing OT- Hearing Assessment OT- Hearing Assessment Use of Hearing Aids M7 OT- IP Mobility and Balance Start: 04/19/19 09:59 Freq: Status: Active Protocol: Document 04/19/19 09:59 [facility] (Rec: 04/19/19 10:28 [facility] [id number]) OT-Transfer Assessment Sit to and From Stand Sit to and from Stand Standby Assistance Transfers Transfer Ability Standby Assistance,Contact Guard Assistance Technique Transfer Destination Chair,Toilet Transfer Technique Stand Step Pivot Devices Transfer Assistive Devices None,Gait Belt Comments Mobility Comments Pt SBA to come to stand from recliner. Pt able to walk in the room with occasional hand on the wall/surfaces for balance and SBA to CGA from therapist as at times slightly unsteady. Pt states felt dizzy after doing groomign needs. BP prior to getting up 143/63 and after grooming 145 /71 , pt's O2 on RA 96-97%. OT- Gait Assessment Gait Gait Assistance Required: Standby Assistance,Contact Guard Assist Assistive Devices Assistive Device Gait Belt OT- Balance Assessment Sitting Balance and Reactions Static Sitting Balance Ability Normal Dynamic Sitting Balance Ability Normal Standing Balance and Reactions Static Standing Balance Ability Good M8 OT- IP Objective Assessments Start: 04/19/19 09:59 Freq: Status: Active Protocol: Document 04/19/19 09:59 [facility] (Rec: 04/19/19 10:28 [facility] [id number]) OT Gross Range of Motion Upper Extremity Range of Motion Assessment Within Functional Limits OT Strength Upper Extremity Strength Assessment Within Functional Limits M9 OT- IP Assessment and Plan Start: 04/19/19 09:59 Freq: Status: Active Protocol: Document 04/19/19 09:59 [facility] (Rec: 04/19/19 10:28 [facility] [id number]) OT Summary Assessment and Plan Potential Rehabilitation Potential Good Analytic Complexity at Evaluation Low Summary OT Impairments Pain,Functional Mobility, Dressing,Toileting,Bathing, Toilet Transfers,Shower Transfers Progress Towards Goals Progressing Toward Goals Assessment Summary Pt low complexity and main barrier are steps and will now need use of adaptive equipment for all dressing needs and assist for as needed. To do showering needs and dressing tomorrow with pt prior to discharge home with . Goals Dressing Goal Standby Assistance,Long Handled Shoe Horn,Auditor In Charge,Sock Aid Toileting Goal Independent,Toilet Paper Aid Bathing Goal Minimal Assistance Toilet Transfer Goal Standby Assistance Shower Transfer Goal Contact Guard Assistance Patient/Caregiver Education Goal Caregiver Independent Assisting Patient Days to Meet Goals 2 Frequency of Treatment Frequency Of Treatment Once a Day Treatment Plan OT Treatment Plan ADL Training,Functional Mobility,Patient/Family Education,Discharge Planning Other Treatment Recommendations and Next shower Treatment Focus Discharge Recommendations OT Discharge Recommendations Home with Assistance
[2019-04-19] MEDS: HYDROCODONE/ACET 5/325 TABLET 2 TAB PO ×2 (10:33→18:03)
[2019-04-19] MEDS: ONDANSETRON 4 MG/2 ML INJ IV (10:34)
--- NOTE | 2019-04-19 10:53 | PT.IIE ---
Current Diagnoses Unspecified cord compression (04/18/19) Spinal stenosis, cervical region (04/18/19) Surgery Performed Operation Date: 04/18/19 07:45 Actual Procedures p C3-T1 anterior cervical discectomy and fusion w/ bone graft, C3-T1 posterior instrumented fusion - Carlitos Jones MD Surgical History (Last Updated 04/05/19 @ 10:37 by Emily Barfield RN) History of 2 sections (Acute) History of arthroplasty of left knee (Acute 03/19/14) History of arthroplasty of right knee (Acute 10/23/13) History of colonoscopy (Acute ~10/2014) History of partial hysterectomy (Acute ~1983) Hx of appendectomy (Acute) Hx of thyroidectomy (Acute 01/23/19) Hx of tonsillectomy (Acute) Status post bilateral LASIK surgery (Acute) Medical History (Last Updated 04/05/19 @ 10:38 by Emily Barfield RN) Anxiety (Acute) Arthritis (Acute) Aspiration pneumonia (Acute 11/01/18) Asthma (Acute) Edema (Acute) Former smoker (Acute) Gout (Acute) Hearing impaired (Acute) HLD (hyperlipidemia) (Acute) HTN (hypertension) (Acute) MALGORZTAA on CPAP (Acute) Osteoarthritis (Acute) Pre-diabetes (Acute) UTI (urinary tract infection) (Acute ~08/2018) Physical Therapy Inpatient Evaluation/Re-Eval M1 PT/OT-IP Prior Functional Status Start: 04/19/19 09:59 Freq: NEEDED Status: Active Protocol: Document 04/19/19 10:53 AB (Rec: 04/19/19 11:32 AB [id number]) Medical Review Prior Functional Status Medical History Reviewed Yes Communication able to make needs known Mobility and Gait spouse stated that pt is independent with all mobilities and ambulation without AD Activities of Daily Living and IADL's per OT's note: Completely independent with ADL's, IADL, paid the bills by computer, and took her own medications. Prior Functional Level (Other details) daughter stated that she lives a few blocks away and can assist pt if needed Social History Household Members spouse Living Arrangements RV Number of Floors (Floors) Two Floors Number of Stairs To Enter/Railing? Pt has 3 steps with bilateral rails to get into the 5th Wheel. has 2 steps to the bed room without rails but has the wall /door frame to hold on to Home Environment Standard Height Toilet,Walk in Shower,Built-In Shower Seat Home Equipment Front Wheel Walker,Straight Cane,Raised Toilet Seat w/ Armrests,Hand Held Shower,Long Handled Shoe Horn,Money Order Clerk, Sock Aid,Grab Bars Near Toilet ,Grab Bars In Shower Employment Status Retired Additional Social History Comment spouse stated that pt will be sleeping on a recliner for a few days before using her bed M2 PT-IP Current Condition Start: 04/18/19 14:19 Freq: NEEDED Status: Active Protocol: Document 04/19/19 10:53 AB (Rec: 04/19/19 11:32 AB [id number]) Physical Therapy Current Condition Current Condition Evaluation Date 04/19/19 Treatment Diagnosis s/p C3-T1 ACDF; difficulty in walking Onset Date 04/18/19 Precautions Cervical Spine Precautions Soft Collar for Comfort,No Heavy Lifting,Log Roll M3 PT-IP Subjective Start: 04/18/19 14:19 Freq: NEEDED Status: Active Protocol: Document 04/19/19 10:53 AB (Rec: 04/19/19 11:32 AB [id number]) Subjective Physical Therapy Visit Type Type Initial Evaluation Visit Start Time 10:53 Visit Stop Time 11:04 Total Visit Minutes 11 Number of AGRICULTURAL RESEARCH ENGINEER Visits 0 Physical Therapy Visit Comments Patient Comments pt stated that she has a lot of pain and just wants to go back to bed Therapy Pain Assessment Pain When Pain Assessed At Rest Pain Present Pain Present Pain Reported Location Right Shoulder Intensity 8 Scale Used Numeric (1 - 10) Pain Management Techniques Apply Cold,Timing of Activity with Medications M4 PT-IP Mobility and Gait Start: 04/18/19 14:19 Freq: NEEDED Status: Active Protocol: Document 04/19/19 10:53 AB (Rec: 04/19/19 11:32 AB [id number]) PT-Bed Mobility Assessment Sit to Supine Sit to Supine Standby Assistance,1 Person Assistance PT-Transfer Assessment Sit to and From Stand Sit to and from Stand Standby Assistance Equipment Transfer Assistive Device None,Bed Rail Transfers Transfer Destination Toilet Transfer Technique pt ambulated without AD Transfer Ability Level of Assist Standby Assistance Comments Mobility Comments pt completed sit to stand from the chair SBA and ambulated to the toilet SBA. completed toileting SBA. after using the toilet, pt stated that she has a lot of pain and just wants to go back to bed. asked to ambulate in room for a first and completed ~ 15 ft without AD SBA. asked pt regarding log roll bed mobility and stated that she knows how to do it and that is how she got up this morning. pt completed sit to supine SBA but did not do a log roll technique. educated pt on precautions and safety and to do log roll bed mobility. positioned pt in bed. call light and table placed within reach. Gait Assessment Gait Gait Assistance Required: Standby Assistance Distance (Feet) 15 Able to Maintain Weight Bearing Status Yes During Gait Assistive Devices Assistive Device None,Gait Belt Orthotic/Prosthetic Devices or Brace: Yes Gait Deviations General Gait Pattern Antalgic,Decreased Stride Length,Decreased Feet Clearance,Step-to Gait Factors Limiting Gait Function Factors Limiting Gait Function Decreased Activity Tolerance, Limited Range of Motion,Pain, Poor Balance,Poor Safety Awareness PT-Balance Assessment Sitting Balance and Reactions Static Sitting Balance Ability Good Dynamic Sitting Balance Ability Good Standing Balance and Reactions Static Standing Balance Ability Good Dynamic Standing Balance Ability Fair Device Used without AD M5 PT-IP Objective Assessments Start: 04/18/19 14:19 Freq: NEEDED Status: Active Protocol: Document 04/19/19 10:53 AB (Rec: 04/19/19 11:32 AB [id number]) Orientation Orientation/Cognition Level of Alertness Alert Orientation Name,Place,Situation Language Function Ability No Deficits Noted Safety Awareness Decreased Safety Awareness Memory Description No Deficits Noted Gross Range of Motion Lower Extremity ROM Assessment Within Functional Limits Strength Lower Extremity Strength Assessment Bilaterally Impaired Hip 4-/5 Knee 4-/5 Coordination Assessment Gross Coordination Gross Coordination WNL Muscle Tone Muscle Tone WNL Yes M6 PT-IP Treatment Start: 04/18/19 14:19 Freq: NEEDED Status: Active Protocol: Document 04/19/19 10:53 AB (Rec: 04/19/19 11:32 AB [id number]) Physical Therapy Treatment Education Education Provided Precautions,Safety Other Treatments Other Treatment Performed pt stated that OT already addressed soft collar management M7 PT-IP Assessment and Plan Start: 04/18/19 14:19 Freq: NEEDED Status: Active Protocol: Document 04/19/19 10:53 AB (Rec: 04/19/19 11:32 AB [id number]) PT Summary Assessment and Plan Potential Rehabilitation Potential Good Status of Condition at Evaluation Stable Summary Impairments Pain,ROM,Strength,Balance, Sensation,Bed Mobility, Transfers,Gait,Activity Tolerance Assessment Summary Pt requiring SBA with mobility but has decrease activity tolerance with c/o increase pain. pt plans to go home with spouse/daughter to assist her. will complete stair climbing training when appropriate. Goals Bed Mobility Goal Independent Transfer Goal Independent Gait Goal Independent Gait Distance 200 Other Goals up/down 3 steps B rails Days to Meet Goals 5 Frequency of Treatment Frequency Of Treatment Twice a Day Treatment Plan Physical Therapy Treatment Plan Bed Mobility Training,Transfer Training,Gait Training, Therapeutic Exercise,Balance Retraining,Post Op Education, Discharge Planning,Hot or Cold Pack,Neuromuscular Re-ed, Coordination Retraining,Manual Therapy Other Recommendations and Next Treatment ambulation, stair climbing Focus Recommendations To Nursing Amount of Assist Needed 1 Person Assist Discharge Recommendations PT Discharge Recommendations Home with Assistance, Outpatient PT
--- NOTE | 2019-04-19 13:01 | PC.NURSE ---
Day Shift- Pt A&OX4, at shift change, pt sitting up in chair, call light within reach. Anterior neck dressing gauze and tegaderm intact with 75% of light sero-sang drainage, posterior dressing of gauze and tegaderm has 90% coverage of sero-sang drainage. CMS+. Pt c/o right shoulder/arm pain 7/10 aching, ice pack placed. Dr. Jones aware. PRN [place] and vistaril effective. Pt c/o nausea at 1020, PRN Zofran given at 1030 with good effect. OOB with SBA. Cervical soft collar in place. Urinary catheter removed at 1000 by Imelda, satellite dish repairer and her instructor Milka. No void yet.
--- NOTE | 2019-04-19 14:00 | CM.DPNOTE ---
DCP Cont: Per Ortho MD, pt making progress and encouraged to work with therapy today towards possible d/c home tomorrow if stable. Per PT/OT, pt is independent at baseline with ADL's and lives in an RV with spouse a couple blocks from where supportive Dtr lives. Recommending safe d/c back to RV with spouse/Dtr assist and outpt PT. Plan: SW to follow for likely pt d/c home with spouse and local supportive adult Dtr assist and outpt PT when medically stable. KINDRA Raya
--- NOTE | 2019-04-19 14:34 | PT-IP ANOTE ---
Pt refused states she want's to wait until tomorrow due to being tired and fatigued. Pt educated about benefit of therapy.
[2019-04-19] MEDS: HYDROMORPHONE 0.5 MG INJ IV (20:18)
[2019-04-19] MEDS: LISINOPRIL 10 MG TABLET PO (20:23)
[2019-04-19] MEDS: GABAPENTIN 300 MG CAPSULE PO (20:23)
[2019-04-19] MEDS: SENNOSIDES 8.6 MG TABLET 17.2 MG PO (20:23)
[2019-04-19] MEDS: SODIUM CHLORIDE 0.9% FLUSH 10 ML IV (20:24)
[2019-04-20 01:00] VITALS: BP 138/67; PULSE 75; RESP 19; TEMP 36.5; O2SAT 96
[2019-04-20] MEDS: LEVOTHYROXINE 125 MCG TABLET PO (05:46)
[2019-04-20 06:06] VITALS: BP 111/85; PULSE 81; RESP 18; TEMP 36.7; O2SAT 95
[2019-04-20] MEDS: HYDROCODONE/ACET 5/325 TABLET 2 TAB PO ×2 (06:13→10:51)
[2019-04-20 07:30] VITALS: BP 146/68; PULSE 72; RESP 19; TEMP 36.9; O2SAT 96
--- NOTE | 2019-04-20 08:06 | P.PN_ITS ---
Subjective Subjective Date Patient Seen: 04/20/19 Time Patient Seen: 08:06 Interval history: She is doing much better. Still some pain on the right side of the neck. All right arm is fine. Last night she had some pain that went down on the inside of her left arm and still has a little bit of tingling on the little to fingers, but just discomfort. Exam Vital Signs (past 8 hours): - 04/20/19 01:00 04/20/19 06:06 Temperature 97.7 F 98.1 F Pulse Rate 75 81 Respiratory Rate 19 18 Blood Pressure 138/67 111/85 Pulse Oximetry 96 95 Oxygen Delivery Method Room Air Oxygen Flow Rate 0 Const Orientation: alert and oriented x3 Back/Spine/Pelvis Other: Mild dry drainage posterior dressing. CDI anterior. 5/5 motor both upper extremities except for 4/5 bilateral optical engineering technician Assessment & Plan Post-op Postoperative Procedures: Procedures Operation Date: 04/18/19 07:45 Actual Procedures Side Surgeon p C3-T1 anterior cervical discectomy and fusion w/ bone graft, C3-T1 posterior instrumented fusion Carlitos Jones MD she is doing very well. Discharged home today. Quality VTE Deep Vein Thrombosis/Pulmonary Embolism Present on Admission: No
[2019-04-20] MEDS: CELECOXIB 200 MG CAPSULE PO (08:55)
[2019-04-20] MEDS: cephALEXin 250 MG CAPSULE 500 MG PO ×2 (08:55→13:41)
[2019-04-20] MEDS: TRIAMTERENE/HCTZ 37.5/25 TABLET 1 CAP PO (08:56)
[2019-04-20] MEDS: CITALOPRAM 20 MG TABLET PO (08:56)
[2019-04-20] MEDS: DOCUSATE 100 MG CAPSULE PO (08:56)
[2019-04-20] MEDS: diazePAM 5 MG TABLET PO (09:00)
--- NOTE | 2019-04-20 10:14 | OT.IP.TRT ---
Current Diagnoses Unspecified cord compression (04/18/19) Spinal stenosis, cervical region (04/18/19) Surgery Performed Operation Date: 04/18/19 07:45 Actual Procedures p C3-T1 anterior cervical discectomy and fusion w/ bone graft, C3-T1 posterior instrumented fusion - Carlitos Jones MD Occupational Therapy Treatment Note M2 OT-IP Current Condition Start: 04/19/19 09:59 Freq: Status: Active Protocol: Document 04/19/19 09:59 [facility] (Rec: 04/19/19 10:28 [facility] [id number]) Occupational Therapy Current Condition Current Condition Evaluation Date 04/19/19 Treatment Diagnosis C3 through T1 anterior discectomy & fusion, post. instrumental fusion Diagnosis Onset Date 04/18/19 Post Operative Precautions Cervical Spine Precautions Soft Collar for Comfort,No Heavy Lifting,Log Roll M3 OT- IP Subjective and Pain Start: 04/19/19 09:59 Freq: Status: Active Protocol: Document 04/20/19 10:03 [facility] (Rec: 04/20/19 10:13 [facility] [id number]) OT- Subjective Occupational Therapy Visit Type Type Treatment Note Visit Start Time 09:23 Visit Stop Time 09:49 Total Visit Minutes 26 Occupational Therapy Visit Comments Patient Comments Pt agreeable to shower. Patient/Caregiver Goals To go home today. OT Pain Assessment Pain When Pain Assessed At Rest Pain Present Pain Present Pain Reported Location Right Shoulder Intensity 5 Scale Used Numeric (1 - 10) M4 OT- IP ADL's Start: 04/19/19 09:59 Freq: Status: Active Protocol: Document 04/20/19 10:03 [facility] (Rec: 04/20/19 10:13 [facility] [id number]) OT ADL-Grooming General Evaluation Grooming Ability Independent OT ADL-Dressing General Eval Lower Body Dressing Ability Contact Guard Assistance Comments OT Dressing Comments Educated pt to sit down for LB dressing as pt trying to stand to get her underwear on and needing to use grab bar to prevent loss of balance, in addition therapist providing CGA. OT ADL-Bathing Bathing Type Bathing Type Shower General Evaluation Bathing Ability Minimal Assistance Areas Needing Assistance Wash/Dry Back,Wash/Dry Lower Extremities Devices Bathing Equipment Hand Held Shower Sprayer,Grab Bars Comments OT Bathing Comments Pt able to stand for the whole shower, but heavy use of grab bars while trying to raise up her legs to wash her feet. Pt will benefit from assist from or long handle brush to assist to wash her feet. Pt's shower stall too small for a shower chair. Pt states has a powerful hand held shower she uses for hygiene needs since she is unable to reach. Suggested able to use a long thin towel between her legs to assist for pericare hygiene needs . M5 OT- IP IADL's Start: 04/19/19 09:59 Freq: Status: Active Protocol: Document 04/19/19 09:59 [facility] (Rec: 04/19/19 10:28 [facility] [id number]) OT-Instrumental Activities of Daily Living Home Safety Awareness Awareness of Need for Assistance at Home Good Awareness Ability to Problem Solve Emergency Able to Problem Solve Situations Medication Management Medication Management No Deficits Identified Money Management Money Management No Deficits Identified Licensed Architect Licensed Architect Caregiver Provides Assist M6 OT- IP Functional Cognition Start: 04/19/19 09:59 Freq: Status: Active Protocol: Document 04/20/19 10:03 [facility] (Rec: 04/20/19 10:13 [facility] [id number]) Cognitive Factors Limiting Selfcare Function Cognitive Ability Level of Alertness Alert Patient Orientation Name,Age,Birthday,Month,Date, Year,Day of Week,Place, Situation Attention Span Ability Capable of Focused Attention, Capable of Sustained Attention Ability to Follow Commands Able to Follow Multi-Step Commands Safety Awareness Underestimates Need for Assistance Cognitive Comments Cognitive Assessment Comments Pt a bit impulsive and needing vc to slow down and to sit for LB dressing needs. OT- Vision and Hearing OT- Hearing Assessment OT- Hearing Assessment Use of Hearing Aids M7 OT- IP Mobility and Balance Start: 04/19/19 09:59 Freq: Status: Active Protocol: Document 04/20/19 10:03 [facility] (Rec: 04/20/19 10:13 [facility] [id number]) OT-Transfer Assessment Sit to and From Stand Sit to and from Stand Standby Assistance Transfers Transfer Ability Standby Assistance Technique Transfer Destination Chair,Shower Stall,Toilet Comments Mobility Comments Noted pt steadier on her feet today and distant SBA and close SBA when stepping into the shower. Pt mainly needing cues to slow down. OT- Balance Assessment Sitting Balance and Reactions Static Sitting Balance Ability Normal Dynamic Sitting Balance Ability Normal Standing Balance and Reactions Static Standing Balance Ability Normal M8 OT- IP Objective Assessments Start: 04/19/19 09:59 Freq: Status: Active Protocol: Document 04/19/19 09:59 [facility] (Rec: 04/19/19 10:28 [facility] [email or web address]) OT Gross Range of Motion Upper Extremity Range of Motion Assessment Within Functional Limits OT Strength Upper Extremity Strength Assessment Within Functional Limits M9 OT- IP Assessment and Plan Start: 04/19/19 09:59 Freq: Status: Active Protocol: Document 04/20/19 10:03 [facility] (Rec: 04/20/19 10:13 [facility] [email or web address]) OT Summary Assessment and Plan Potential Rehabilitation Potential Good Analytic Complexity at Evaluation Low Summary Progress Towards Goals Progressing Toward Goals Assessment Summary Pt to go home today. Pt aware after education that she needs to try to slow down, be sure to sit while trying to do LB dressing needs, and take her time. Pt has supportive to assist for needs at home. Goals Days to Meet Goals 1 Frequency of Treatment Frequency Of Treatment Once a Day Treatment Plan OT Treatment Plan Patient/Family Education, Discharge Planning Discharge Recommendations OT Discharge Recommendations Home with Assistance
--- NOTE | 2019-04-20 11:38 | PT.IPTN ---
Current Diagnoses Unspecified cord compression (04/18/19) Spinal stenosis, cervical region (04/18/19) Surgery Performed Operation Date: 04/18/19 07:45 Actual Procedures p C3-T1 anterior cervical discectomy and fusion w/ bone graft, C3-T1 posterior instrumented fusion - Carlitos Jones MD Physical Therapy Treatment Note M2 PT-IP Current Condition Start: 04/18/19 14:19 Freq: NEEDED Status: Active Protocol: Document 04/19/19 10:53 AB (Rec: 04/19/19 11:32 [facility] [id number]) Physical Therapy Current Condition Current Condition Evaluation Date 04/19/19 Treatment Diagnosis s/p C3-T1 ACDF; difficulty in walking Onset Date 04/18/19 Precautions Cervical Spine Precautions Soft Collar for Comfort,No Heavy Lifting,Log Roll M3 PT-IP Subjective Start: 04/18/19 14:19 Freq: NEEDED Status: Active Protocol: Document 04/20/19 11:38 SP (Rec: 04/20/19 13:00 [facility] [email or web address]) Subjective Physical Therapy Visit Type Type Treatment Note Visit Start Time 11:15 Visit Stop Time 11:38 Total Visit Minutes 12 Number of COMMERCIAL PEST CONTROL REPRESENTATIVE Visits 1 Physical Therapy Visit Comments Patient Comments Pt was willing to work with PT , stated just took some pain meds not long ago and helping pain from 7/10 to 5/10 currently. Pt stated is still having some tingling down into her LUE to whole hand. Patient Goals Go for a walk. Therapy Pain Assessment Pain When Pain Assessed At Rest Pain Present Pain Present Pain Reported Location Right Shoulder Intensity 5 Scale Used Numeric (1 - 10) Pain Management Techniques Apply Cold,Re-positioning, Timing of Activity with Medications M4 PT-IP Mobility and Gait Start: 04/18/19 14:19 Freq: NEEDED Status: Active Protocol: Document 04/20/19 11:38 SP (Rec: 04/20/19 13:00 SP [email or web address]) PT-Bed Mobility Assessment Rolling Type of Rolling Log Rolling,Roll to Right,Roll to Left Supine to Sit Supine to Sit Standby Assistance Sit to Supine Sit to Supine Standby Assistance Scooting Scooting to Edge of Bed Standby Assistance Scooting Up and Down in Bed Standby Assistance PT-Transfer Assessment Sit to and From Stand Sit to and from Stand Standby Assistance,Use of Upper Extremities Equipment Transfer Assistive Device None,Bed Rail,Gait Belt Transfers Transfer Destination Bed,Chair Transfer Technique Pt ambulated without AD Transfer Ability Level of Assist Standby Assistance Comments Mobility Comments Pt complete bed mobility and sit to stand from chair and bed SBA wit use of BUE and rails with log roll keeping neck alighnment with trunk. No increased pain with mobility. Gait Assessment Gait Gait Assistance Required: Standby Assistance Distance (Feet) 514 Able to Maintain Weight Bearing Status Yes During Gait Assistive Devices Assistive Device None,Gait Belt Orthotic/Prosthetic Devices or Brace: Yes Gait Deviations General Gait Pattern Antalgic,Decreased Stride Length,Decreased Feet Clearance Factors Limiting Gait Function Factors Limiting Gait Function Decreased Activity Tolerance, Limited Range of Motion,Pain, Poor Balance Comments Gait Comments Pt demonstrated wt shift LOB x1 to L during gait in hallway , and LOB to left when turned her head to answer therapist question, self recovery with noted contact wall. Stair Climbing Assessment Evaluation Level of Assist On Stairs Standby Assistance Devices Stair Climbing Assistive Devices Left Railing,Right Railing Technique/Endurance Stair Climbing Direction Ascend and Descend Stair Climbing Technique Step Over Step Number of Steps Climbed 3 Stair Climbing Set # Repetitions (reps) 2 Comments Stair Climbing Comments Pt was able to complete 3 steps x2 using B HR to assimulate enterance to RV and 1 step with side pressure on wall to assimulate transition from RV livingroom area to bedroom with no LOB or deviations. PT-Balance Assessment Sitting Balance and Reactions Static Sitting Balance Ability Good Dynamic Sitting Balance Ability Good Standing Balance and Reactions Static Standing Balance Ability Good Dynamic Standing Balance Ability Fair Device Used without AD M5 PT-IP Objective Assessments Start: 04/18/19 14:19 Freq: NEEDED Status: Active Protocol: Document 04/19/19 10:53 AB (Rec: 04/19/19 11:32 AB [id number]) Orientation Orientation/Cognition Level of Alertness Alert Orientation Name,Place,Situation Language Function Ability No Deficits Noted Safety Awareness Decreased Safety Awareness Memory Description No Deficits Noted Gross Range of Motion Lower Extremity ROM Assessment Within Functional Limits Strength Lower Extremity Strength Assessment Bilaterally Impaired Hip 4-/5 Knee 4-/5 Coordination Assessment Gross Coordination Gross Coordination WNL Muscle Tone Muscle Tone WNL Yes M6 PT-IP Treatment Start: 04/18/19 14:19 Freq: NEEDED Status: Active Protocol: Document 04/20/19 11:38 SP (Rec: 04/20/19 13:00 SP [email or web address]) Physical Therapy Treatment Exercises Exercises Seated Knee Flexion/Extension Education Education Provided Precautions,Safety Equipment Issued Equipment Type and Company Provided hand outs of ex: sit< > stand, seated/supine cervical retraction to neutral head supported on back of chair, standing marching, seated/ standing heel raises/ toe raises with contact of counter for safety balance, median and ulnar nerve flossing 3x5-10 to decrease tingling in L UE with positive results. M7 PT-IP Assessment and Plan Start: 04/18/19 14:19 Freq: NEEDED Status: Active Protocol: Document 04/20/19 11:38 SP (Rec: 04/20/19 13:00 SP [email or web address]) PT Summary Assessment and Plan Potential Rehabilitation Potential Good Status of Condition at Evaluation Stable Summary Impairments Pain,ROM,Strength,Balance, Sensation,Bed Mobility, Transfers,Gait,Activity Tolerance Assessment Summary Pt requiring SBA with all mobility but has increased activity tolerance. Pt stated nerve flossing help with decrease hand tingling. pt plans to go home with spouse/ daughter to assist her. Complete stair management training with good demonstration. Pt left up in her chair with call light in reach and reapplied cold back for her neck, no increase in neck pain, 5/10 with mobility. Goals Bed Mobility Goal Independent Transfer Goal Independent Gait Goal Independent Gait Distance 200 Other Goals up/down 3 steps B rails Days to Meet Goals 5 Frequency of Treatment Frequency Of Treatment Twice a Day Treatment Plan Physical Therapy Treatment Plan Bed Mobility Training,Transfer Training,Gait Training, Therapeutic Exercise,Balance Retraining,Post Op Education, Discharge Planning,Hot or Cold Pack,Neuromuscular Re-ed, Coordination Retraining,Manual Therapy Other Recommendations and Next Treatment ambulation, stair climbing Focus Recommendations To Nursing Amount of Assist Needed 1 Person Assist Discharge Recommendations PT Discharge Recommendations Home with Assistance, Outpatient PT
--- NOTE | 2019-04-20 13:53 | PC.NURSE ---
Pt dressed and ready for discharge home with Spouse. IV removed. Dressings changed per Dr. Jones orders. Went over d/c instructions with Pt-discussed d/c meds, time of last dose, logrolling in/out of bed, lifting and bending restrictions, stroke education, s/s of infection, icing her wounds, and follow up. Pt denies further questions and is ready to be taken out via w/c by EQUIPMENT OPERATION INSTRUCTOR to POV with Spouse and all belongings. Also reminded Pt not to drive while on narcotics and to drink plenty of fluids to prevent constipation or dehydration.
== END 2019-04-20 14:14 | disposition home or self-care (01) | DRG 454 ==
PROVIDERS: Admitting Provider Orthopaedic Surgery; PCP Family Medicine; Visit Provider Orthopaedic Surgery
PROC: 0RG20A0 Fusion of 2 or more Cervical Vertebral Joints with Interbody Fusion Device, Anterior Approach, Anterior Column, Open Approach (ICD-10-PCS; principal; 2019-04-18 07:45)
DX: M48.02 Spinal stenosis, cervical region (principal); G95.20 Unspecified cord compression; Z68.43 Body mass index [BMI] 50.0-59.9, adult; E66.01 Morbid (severe) obesity due to excess calories; G47.33 Obstructive sleep apnea (adult) (pediatric); I10 Essential (primary) hypertension
CPT/HCPCS: 72040; 76000; 94760; 97116; 97161; 97165; 97530; 97535; C1776; J0690; J1100; J1170; J2250; J2405; J2704; J3010